=== PATIENT | male | born 1950 | race Hispanic/Latino ===

== ENCOUNTER 2018-08-26 08:52 | Emergency (ER) | payer BC, OTHER ==
[2018-08-26] MEDS ORDERED: TRAMADOL HCL 50 MG TAB ONE (09:40)
[2018-08-26] MEDS ORDERED: KETOROLAC 30 MG/ML INJ ONE (09:40)
--- NOTE | 2018-08-26 10:33 | RAD REPORT ---
EXAM DESCRIPTION: RAD - Lumbar Spine 3 Views - 08/26/2018 10:24 am CLINICAL HISTORY: Back pain FINDINGS: The alignment of the lumbar spine is satisfactory. No fracture or dislocation is seen. Sacralization L5 Mild spondylosis involves the lumbar spine. Osteoporosis
--- NOTE | 2018-08-26 11:29 | EDPHYS ---
Physician Documentation [facility] Name: Joseph Machado Age: 68 yrs Sex: Male : 1950 Arrival Date: 08/26/2018 Time: 08:54 Bed 2 Private MD: Unknown, Unknown ED Physician Phoenix Moreno HPI: 08/26 11:32 This 68 yrs old Male presents to ER via Ambulatory with complaints of Leg snw Pain, HEART. 11:32 The patient presents with pain, that is acute. The complaints affect the right hip, snw lateral aspect of right thigh and lateral aspect of right knee. Context: The problem was sustained at home, resulted from an unknown cause, the patient can fully bear weight, the patient is able to ambulate, Problem is a result from a previous injury: No. Onset: The symptoms/episode began/occurred 3 day(s) ago, and became persistent. Treatment prior to arrival includes: no previous treatment. Severity of symptoms: At their worst the symptoms were moderate. The patient has not experienced similar symptoms in the past. The patient has been recently seen by a physician: with similar presenting complaints, and was sent to the [facility] Emergency Department for further evaluation, 2nd to Bradycardia. Bradycardia asymptomatic. Historical: - Allergies: 09:02 No Known Allergies; tw2 - Home Meds: 09:02 None [Active]; tw2 - PMHx: 09:02 None; tw2 - Immunization history:: Adult Immunizations. - Social history:: Smoking status: . - Ebola Screening: : Patient denies travel to an Ebola-affected area in the 21 days before illness onset. ROS: 09:39 Constitutional: Negative for fever, chills, and weight loss, Eyes: Negative for injury, snw pain, redness, and discharge, ENT: Negative for injury, pain, and discharge, Neck: Negative for injury, pain, and swelling, Cardiovascular: Negative for chest pain, palpitations, and edema, Respiratory: Negative for shortness of breath, cough, wheezing, and pleuritic chest pain, Abdomen/GI: Negative for abdominal pain, nausea, vomiting, diarrhea, and constipation, Back: Negative for injury and pain, : Negative for injury, bleeding, discharge, and swelling, Skin: Negative for injury, rash, and discoloration, Neuro: Negative for headache, weakness, numbness, tingling, and seizure. 09:39 Cardiovascular: Negative for chest pain, edema, palpitations, acute changes. 09:39 MS/extremity: Positive for pain, of the right hip, lateral aspect of right thigh and lateral aspect of right knee. 09:39 Neuro: Negative for dizziness. Exam: 09:39 Constitutional: This is a well developed, well nourished patient who is awake, alert, snw and in no acute distress. Head/Face: Normocephalic, atraumatic. Eyes: Pupils equal round and reactive to light, extra-ocular motions intact. Lids and lashes normal. Conjunctiva and sclera are non-icteric and not injected. Cornea within normal limits. Periorbital areas with no swelling, redness, or edema. ENT: Nares patent. No nasal discharge, no septal abnormalities noted. Tympanic membranes are normal and external auditory canals are clear. Oropharynx with no redness, swelling, or masses, exudates, or evidence of obstruction, uvula midline. Mucous membranes moist. Neck: Trachea midline, no thyromegaly or masses palpated, and no cervical lymphadenopathy. Supple, full range of motion without nuchal rigidity, or vertebral point tenderness. No Meningismus. Chest/axilla: Normal chest wall appearance and motion. Nontender with no deformity. No lesions are appreciated. Respiratory: Lungs have equal breath sounds bilaterally, clear to auscultation and percussion. No rales, rhonchi or wheezes noted. No increased work of breathing, no retractions or nasal flaring. Abdomen/GI: Soft, non-tender, with normal bowel sounds. No distension or tympany. No guarding or rebound. No evidence of tenderness throughout. Skin: Warm, dry with normal turgor. Normal color with no rashes, no lesions, and no evidence of cellulitis. Neuro: Awake and alert, GCS 15, oriented to person, place, time, and situation. Cranial nerves II-XII grossly intact. Motor strength 5/5 in all extremities. Sensory grossly intact. Cerebellar exam normal. Normal gait. Psych: Awake, alert, with orientation to person, place and time. Behavior, mood, and affect are within normal limits. 09:39 MS/ Extremity: Pulses equal, no cyanosis. Neurovascular intact. Full, normal range of motion. 09:39 Cardiovascular: Rate: bradycardic, Rhythm: regular, Heart sounds: normal. 09:40 ECG was reviewed by the Attending Physician. snw Vital Signs: 09:01 BP 148 / 75; Pulse 49; Resp 16; Temp 98(O); Pulse Ox 96% on R/A; Pain 10/10; tw2 09:25 BP 150 / 73 Supine; Pulse 47; em1 09:28 BP 172 / 65 Sitting; Pulse 46; em1 09:42 BP 164 / 77 Standing; Pulse 45; em1 10:01 BP 156 / 81; Pulse 46; Resp 14; Pulse Ox 97% ; sv 10:57 BP 155 / 74; Pulse 45; Resp 16; Pulse Ox 99% ; sv MDM: 09:24 Patient medically screened. snw 11:32 Data reviewed: vital signs, nurses notes. Data interpreted: Pulse oximetry: on room air snw is 99 %. Interpretation: normal. Counseling: I had a detailed discussion with the patient and/or guardian regarding: the historical points, exam findings, and any diagnostic results supporting the discharge/admit diagnosis, the presence of at least one elevated blood pressure reading (>120/80) during this emergency department visit, radiology results, the need for outpatient follow up, to return to the emergency department if symptoms worsen or persist or if there are any questions or concerns that arise at home. Response to treatment: the patient's symptoms have markedly improved after treatment. Special discussion: I have referred the patient to see his PCP for further evaluation of high blood pressure. Based on the history and exam findings, there is no indication for further emergent testing or inpatient evaluation. 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 I discussed with the patient/guardian the need to see the primary care provider for further evaluation of the symptoms. 08/26 09:24 Order name: Lumbar Spine (3 Views) XRAY; Complete Time: 10:39 snw 08/26 09:24 Order name: EKG; Complete Time: 09:26 snw 08/26 09:24 Order name: EKG - Nurse/Tech; Complete Time: 09:24 snw 08/26 09:24 Order name: Orthostatics; Complete Time: 09:35 snw Administered Medications: 09:34 Drug: TORadol - Ketorolac 15 mg Route: IM; Site: right gluteus; hb 10:30 Follow up: Response: No adverse reaction; Pain is decreased hb 09:34 Drug: UltRAM 50 mg Route: PO; hb 10:30 Follow up: Response: No adverse reaction; Pain is decreased hb Disposition: 20:37 Co-signature as Attending Physician, Phoenix Moreno MD Available for consultation at ps1 all times . Disposition: 08/26/18 11:28 Discharged to Home. Impression: Low back pain, Radiculopathy, lumbar region. - Condition is Stable. - Discharge Instructions: Bradycardia, Adult, Lumbosacral Radiculopathy, Hip Pain. - Prescriptions for Mobic 7.5 mg Oral Tablet - take 1 tablet by ORAL route once daily take as needed for pain, with food; 20 tablet. orphenadrine citrate 100 mg Oral Tablet Sustained Release - take 1 tablet by ORAL route 2 times per day As needed; 20 tablet. - Medication Reconciliation Form, Thank You Letter, Antibiotic Education, Prescription Opioid Use form. - Follow up: Emergency Department; When: As needed; Reason: Worsening of condition. Follow up: Private Physician; When: 2 - 3 days; Reason: Recheck today's complaints, Continuance of care, Re-evaluation by your physician. Signatures: Dispatcher [employer] EDMS Leora Davis, NICK-C COMMERCIAL ENERGY RATER-Csnw Kennedi Senior RN RN Zoe Headley RN RN tw2 Phoenix Moreno MD MD ps1 Corrections: (The following items were deleted from the chart) 11:46 11:28 08/26/2018 11:28 Discharged to Home. Impression: Low back pain; Radiculopathy, hb lumbar region. Condition is Stable. Discharge Instructions: Bradycardia, Adult, Lumbosacral Radiculopathy, Hip Pain. Prescriptions for Mobic 7.5 mg Oral Tablet - take 1 tablet by ORAL route once daily take as needed for pain, with food; 20 tablet, orphenadrine citrate 100 mg Oral Tablet Sustained Release - take 1 tablet by ORAL route 2 times per day As needed; 20 tablet. and Forms are Medication Reconciliation Form, Thank You Letter, Antibiotic Education, Prescription Opioid Use. Follow up: Emergency Department; When: As needed; Reason: Worsening of condition. Follow up: Private Physician; When: 2 - 3 days; Reason: Recheck today's complaints, Continuance of care, Re-evaluation by your physician. snw
--- NOTE | 2018-08-26 11:29 | ER ---
Nurse's Notes [facility] Name: Joseph Machado Age: 68 yrs Sex: Male : 1950 Arrival Date: 08/26/2018 Time: 08:54 Bed 2 Private MD: Unknown, Unknown Diagnosis: Low back pain;Radiculopathy, lumbar region Presentation: 08/26 09:00 Presenting complaint: Patient states: my right leg hurts and it hurts all the way down, tw2 he went to the clinic in [place] and they told him his heart rate is low. Transition of care: patient was not received from another setting of care. Onset of symptoms was August 26, 2018. Risk Assessment: Do you want to hurt yourself or someone else? Patient reports no desire to harm self or others. Initial Sepsis Screen: Does the patient meet any 2 criteria? No. Patient's initial sepsis screen is negative. Does the patient have a suspected source of infection? No. Patient's initial sepsis screen is negative. Care prior to arrival: None. 09:00 Method Of Arrival: Ambulatory tw2 09:03 Acuity: YESSICA 2 tw2 Triage Assessment: 09:01 General: Appears in no apparent distress. well groomed, Behavior is calm, cooperative, tw2 appropriate for age. Pain: Complains of pain in right hip. Historical: - Allergies: 09:02 No Known Allergies; tw2 - Home Meds: 09:02 None [Active]; tw2 - PMHx: 09:02 None; tw2 - Immunization history:: Adult Immunizations. - Social history:: Smoking status: . - Ebola Screening: : Patient denies travel to an Ebola-affected area in the 21 days before illness onset. Screenin:11 Abuse screen: Denies threats or abuse. Denies injuries from another. Nutritional hb screening: No deficits noted. Tuberculosis screening: No symptoms or risk factors identified. Fall Risk Total Morris Fall Scale indicates Low Risk Score (25-44 pts). Fall prevention measures have been instituted. Side Rails Up X 2 Frequent Obs/Assesments occuring Family Present and informed to notify staff if they need to leave bedside As available Patient and Family Educated on Fall Prevention Program and strategies. Assessment: 09:11 General: Appears in no apparent distress. Behavior is calm, cooperative. Pain: Pain hb currently is 10 out of 10 on a pain scale. Neuro: Level of Consciousness is awake, alert, obeys commands, Oriented to person, place, time, situation. Cardiovascular: Heart tones S1 S2 present Capillary refill < 3 seconds Patient's skin is warm and dry. Rhythm is sinus bradycardia. Respiratory: Airway is patent Respiratory effort is even, unlabored, Respiratory pattern is regular, symmetrical, Breath sounds are clear bilaterally. GI: No signs and/or symptoms were reported involving the gastrointestinal system. : No signs and/or symptoms were reported regarding the genitourinary system. EENT: No signs and/or symptoms were reported regarding the EENT system. Derm: Skin is intact, is healthy with good turgor, Skin is pink, warm \T\ dry. Musculoskeletal: Reports LEFT LEG PAIN 02/05. 10:00 Reassessment: Patient appears in no apparent distress at this time. Patient and/or hb family updated on plan of care and expected duration. Pain level reassessed. Patient is alert, oriented x 3, equal unlabored respirations, skin warm/dry/pink. 11:00 Reassessment: Patient appears in no apparent distress at this time. Patient and/or hb family updated on plan of care and expected duration. Pain level reassessed. Patient is alert, oriented x 3, equal unlabored respirations, skin warm/dry/pink. Vital Signs: 09:01 BP 148 / 75; Pulse 49; Resp 16; Temp 98(O); Pulse Ox 96% on R/A; Pain 10; tw2 09:25 BP 150 / 73 Supine; Pulse 47; em1 09:28 BP 172 / 65 Sitting; Pulse 46; em1 09:42 BP 164 / 77 Standing; Pulse 45; em1 10:01 BP 156 / 81; Pulse 46; Resp 14; Pulse Ox 97% ; sv 10:57 BP 155 / 74; Pulse 45; Resp 16; Pulse Ox 99% ; sv ED Course: 08:54 Patient arrived in ED. ag5 08:56 Unknown, Unknown is Private Physician. ag5 09:01 Triage completed. tw2 09:01 Arm band placed on. tw2 09:05 Leora Davis FNP-C is [facility]. snw 09:05 Phoenix Moreno MD is Attending Physician. snw 09:11 Kennedi Senior, RN is Primary Nurse. hb 09:11 Patient has correct armband on for positive identification. Placed in gown. Bed in low hb position. Call light in reach. Side rails up X2. 09:18 EKG done, by engineering lab technician. reviewed by Leora HERNANDEZ. at1 10:14 X-ray completed. Patient tolerated procedure well. jb2 10:15 Lumbar Spine (3 Views) XRAY In Process Unspecified. EDMS 11:00 No provider procedures requiring assistance completed. Patient did not have IV access hb during this emergency room visit. Administered Medications: 09:34 Drug: TORadol - Ketorolac 15 mg Route: IM; Site: right gluteus; hb 10:30 Follow up: Response: No adverse reaction; Pain is decreased hb 09:34 Drug: UltRAM 50 mg Route: PO; hb 10:30 Follow up: Response: No adverse reaction; Pain is decreased hb Outcome: 11:00 Discharged to home ambulatory, with family. hb 11:00 Condition: stable 11:00 Discharge instructions given to patient, family, Instructed on discharge instructions, follow up and referral plans. medication usage, Demonstrated understanding of instructions, follow-up care, medications, Prescriptions given X 2. 11:28 Discharge ordered by MD. snw 11:46 Patient left the ED. hb Signatures: Dispatcher [employer] Jen Espinoza, Leora Roca RN, ESTHERC SENIOR MICROSTRATEGY DEVELOPER-Csnw Harmeet Tavarez jb2 Ryan Dan em1 Dawna Sorto, sourcing associate EKG Tat1 Kennedi Senior RN RN Zoe Headley RN RN 2 Victorino Stafford ag5 Corrections: (The following items were deleted from the chart) 09:03 09:00 Acuity: YESSICA 3 tw2 tw2
--- NOTE | 2018-08-26 21:41 | EKG ---
Test Date: 2018-08-26 Test Time: 09:09:08 [employer] Sales Consultant: STEPHANIE MEASUREMENT RESULTS: Intervals: Rate: 46 PA: 158 QRSD: 90 QT: 440 QTc: 385 [place]: P: 43 PA: 158 QRS: 39 T: 79 INTERPRETIVE STATEMENTS: Sinus bradycardia Otherwise normal ECG No previous ECG available for comparison Electronically Signed On 08-26-18 21:38:32 CDT by Yovani Ortega
== END 2018-08-26 11:46 | disposition home or self-care (01) ==
LOC: ER 08:52
DX: M54.16 Radiculopathy, lumbar region (principal)
CPT/HCPCS: 72100; 93005

== ENCOUNTER 2018-09-02 07:47 | Emergency (ER) | payer BC, OTHER ==
[2018-09-02] MEDS ORDERED: MORPHINE 2 MG/ML SYR ONE ×2 (08:33→10:11)
[2018-09-02] MEDS ORDERED: DEXAMETHASONE 10 MG/ML VIAL ONE (08:33)
[2018-09-02] MEDS ORDERED: ONDANSETRON 4 MG/2 ML VIAL ONE (08:34)
[2018-09-02] MEDS ORDERED: NA CHLORIDE 0.9% 1,000 ML ONE (08:34)
[2018-09-02] MEDS ORDERED: KETOROLAC 30 MG/ML INJ ONE (08:34)
[2018-09-02 08:45] LABS: MPV 8.7 fL (7.6-11.3); RBC Red Blood Cell Count 5.66 M/uL (4.33-5.43)
[2018-09-02] MEDS ORDERED: DIAZEPAM 5 MG TABLET ONE (08:56)
[2018-09-02 08:57] LABS: Potassium 4.8 mmol/L (3.5-5.1)
--- NOTE | 2018-09-02 10:23 | RAD REPORT ---
EXAM DESCRIPTION: MRI - Lumbar Spine Wo Con - 09/02/2018 9:28 am CLINICAL HISTORY: Back pain, right lower extremity radiculopathy COMPARISON: Lumbar plain films August 26 TECHNIQUE: Sagittal T1-weighted, T2-weighted and T2-STIR weighted sequences were obtained. Axial T1 -weighted and heavily T2-weighted sequenceswere obtained through the lumbar disc levels. FINDINGS: Lumbar bodies are normal in height and alignment. No suspicious marrow signal. No paraspi nal masses. Mild fatty marrow degenerative changes are present abutting the endplates at the L5-S1 di sc level. Conus is normal with no clumping or thickening of the cauda equina. T12-L1 level: No significant findings. L1-2 level: Disc is desiccated with slight loss in disc height. Circumferential bulging of disc mater ial is present. Small annular fissure is present near the origin of the right exit foramen. No hernia tion. Midline canal diameter is 10 mm. No significant foraminal stenosis. L2-3 level: Disc is desiccated without loss in disc height. Circumferential bulging of disc material is present. No significant foraminal encroachment. Facet degenerative changes are present. Midline ca nal diameter is 10 mm. L3-4 level: Disc is desiccated without loss in disc height. Bulging of disc material is seen across t he central canal and into each exit foramen. Mild foraminal stenosis is present. Perineural fat still surrounds each exiting nerve root. Facet degenerative changes are present. Midline canal diameter is 9 mm. L4-5 level: Disc desiccation without loss in disc height. Circumferential bulging of disc material is present. Mild right foraminal stenosis and [id number] left foraminal stenosis present. Perineu ral fat is still surrounding each exiting nerve root. Facet degenerative changes are present. Midline canal is 10 mm. L5-S1 level: Disc is desiccated with loss in height. Prominent bulging of disc material is seen in th e central canal with more moderate disc bulge in each exit foramen. Central canal disc bulge flattens the thecal sac anteriorly. Facet degenerative changes are present. There is significant left foramin al stenosis with little perineural fat remaining. Right foraminal stenosis is moderate. Perineural fa t is still present. No central spinal stenosis. Midline canal diameter is 14 mm. IMPRESSION: Degenerative disc disease is present at every lumbar level. No focal herniation is seen. 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 Multilevel foraminal stenosis changes are present. Findings are most severe on the left at L5-S1. Pat ient symptoms indicate right radicular pain pattern. The foraminal stenosis is less prominent on the right compared to the left. No compression fracture or acute vertebral body finding.
--- NOTE | 2018-09-02 10:31 | ER ---
Nurse's Notes [facility] Name: Joseph Machado Age: 68 yrs Sex: Male : 1950 Arrival Date: 09/02/2018 Time: 07:48 Bed 14 Private MD: Diagnosis: Low back pain;Sciatica, right side;Spinal stenosis, lumbar region;Radiculopathy, lumbosacral region Presentation: 09/02 07:48 Presenting complaint: Patient states: right lower back pain radiating to right leg. Pt aa5 states "I was seen here August 26 and I finished all the medicine they gave me but it's not better". 07:48 Transition of care: patient was not received from another setting of care. Onset of aa5 symptoms was July 2018. Risk Assessment: Do you want to hurt yourself or someone else? Patient reports no desire to harm self or others. Initial Sepsis Screen: Does the patient meet any 2 criteria? No. Patient's initial sepsis screen is negative. Does the patient have a suspected source of infection? No. Patient's initial sepsis screen is negative. Care prior to arrival: None. 07:48 Method Of Arrival: Ambulatory aa5 07:48 Acuity: YESSICA 4 aa5 Triage Assessment: 07:48 General: Appears in no apparent distress. uncomfortable, Behavior is calm, cooperative, hj appropriate for age. Pain: Complains of pain in back. Musculoskeletal: Circulation, motion, and sensation intact. Capillary refill < 3 seconds. Historical: - Allergies: 07:52 No Known Allergies; aa5 - Home Meds: 07:53 None [Active]; aa5 - PMHx: 07:53 None; aa5 - PSHx: 07:53 None; aa5 - Immunization history:: Adult Immunizations unknown. - Social history:: Smoking status: Patient/guardian denies using tobacco. - Ebola Screening: : No symptoms or risks identified at this time. - Family history:: not pertinent. Screenin:48 Abuse screen: Denies threats or abuse. Denies injuries from another. Nutritional hj screening: No deficits noted. Tuberculosis screening: No symptoms or risk factors identified. Fall Risk None identified. Assessment: 07:48 General: Appears in no apparent distress. uncomfortable, Behavior is calm, cooperative, hj appropriate for age. Pain: Complains of pain in back. Neuro: Level of Consciousness is awake, alert, obeys commands, Oriented to person, place, time, situation, Appropriate for age. Cardiovascular: Capillary refill < 3 seconds Patient's skin is warm and dry. Respiratory: Airway is patent Respiratory effort is even, unlabored, Respiratory pattern is regular, symmetrical. GI: No signs and/or symptoms were reported involving the gastrointestinal system. : No signs and/or symptoms were reported regarding the genitourinary system. EENT: No signs and/or symptoms were reported regarding the EENT system. Derm: No signs and/or symptoms reported regarding the dermatologic system. 07:48 Musculoskeletal: Reports pain in back. hj 09:03 Reassessment: Patient and/or family updated on plan of care and expected duration. Pain hj level reassessed. Patient is alert, oriented x 3, equal unlabored respirations, skin warm/dry/pink. wheeled to MRI;. Vital Signs: 07:50 Temp 98.1(TE); Pulse Ox 100% on R/A; hj 07:53 BP 147 / 84; Pulse 58; Resp 16; Weight 88.45 kg (R); Pain 10/10; aa5 08:50 BP 164 / 69; Pulse 52; Resp 18; Pulse Ox 96% on R/A; Pain 8/10; hj 10:01 BP 130 / 67; Pulse 50; Resp 18; Pulse Ox 98% on R/A; Pain 5/10; hj ED Course: 07:48 Patient arrived in ED. as 07:48 Arm band placed on Patient placed in an exam room, on a stretcher. aa5 07:48 Patient has correct armband on for positive identification. Placed in gown. Bed in low hj position. Call light in reach. Side rails up X 1. 07:50 Rj Silva, AMY is Primary Nurse. hj 07:51 Triage completed. aa5 07:53 [place] P[place] MD is Attending Physician. karlee 08:30 Initial lab(s) drawn, by me, sent to lab. Inserted saline lock: 22 gauge in right hj antecubital area, using aseptic technique. Blood collected. 09:13 Patient moved to MRI via wheelchair. em2 09:28 MRI Lumbar Spine wo Con In Process Unspecified. EDMS 10:29 Juanjo Parker MD is Referral Physician. kalree 10:53 No provider procedures requiring assistance completed. IV discontinued, intact, hj bleeding controlled, No redness/swelling at site. Pressure dressing applied. Administered Medications: 08:30 Drug: NS 0.9% 1000 ml Route: IV; Rate: 1 bolus; Site: right antecubital; hj 10:06 Follow up: IV Status: Completed infusion; IV Intake: 1000ml hj 08:30 Drug: Decadron - Dexamethasone 10 mg Route: IVP; Site: right antecubital; hj 08:40 Follow up: Response: No adverse reaction hj 08:30 Drug: TORadol 30 mg Route: IVP; Site: right antecubital; hj 08:40 Follow up: Response: No adverse reaction; Pain is decreased hj 08:30 Drug: morphine 2 mg Route: IVP; Site: right antecubital; hj 08:40 Follow up: Response: No adverse reaction; Pain is decreased hj 08:30 Drug: Zofran 4 mg Route: IVP; Site: right antecubital; hj 08:41 Follow up: Response: No adverse reaction hj 08:30 Drug: Valium 5 mg Route: PO; hj 08:44 Follow up: Response: No adverse reaction; Anxiety decreased hj 09:50 Drug: morphine 2 mg Route: IVP; Site: right antecubital; hj 10:00 Follow up: Response: No adverse reaction; Pain is decreased hj Intake: 10:06 IV: 1000ml; Total: 1000ml. hj Outcome: 10:30 Discharge ordered by . [facility] 10:53 Discharged to home ambulatory, with family. 10:53 Condition: stable 10:53 Discharge instructions given to patient, family, Instructed on discharge instructions, follow up and referral plans. medication usage, Demonstrated understanding of instructions, follow-up care, medications, Prescriptions given X 4. 10:54 Patient left the ED. hj Signatures: Dispatcher [employer] EDMS [place] P[place] MD MD cha Martinez, Amelia as Calderon, Audri RN RN [email or web address] Brian Hernandez 2 Rj Silva RN RN hj Corrections: (The following items were deleted from the chart) 07:53 07:53 BP 147 / 84; Pulse 58bpm; aa5 aa5 10:01 08:50 BP 164 / 69; Pulse 52bpm; Resp 18bpm; Pulse Ox 96% RA; hj hj
--- NOTE | 2018-09-02 10:31 | EDPHYS ---
Physician Documentation [facility] Name: Joseph Machado Age: 68 yrs Sex: Male : 1950 Arrival Date: 09/02/2018 Time: 07:48 Bed 14 Private MD: ED Physician [place] HPI: 09/02 08:16 This 68 yrs old Male presents to ER via Ambulatory with complaints of Back karlee Pain. 08:16 The patient presents with pain that is chronic, with no known mechanism of injury, and karlee decreased range of motion. The symptoms are located in the low back, lumbar area and right low back. Onset: The symptoms/episode began/occurred 3 day(s) ago. The pain radiates to the right leg. Associated signs and symptoms: The patient has no apparent associated signs or symptoms. Severity of symptoms: At their worst the symptoms were mild, in the emergency department the symptoms are unchanged. The patient has not experienced similar symptoms in the past. Historical: - Allergies: 07:52 No Known Allergies; aa5 - Home Meds: 07:53 None [Active]; aa5 - PMHx: 07:53 None; aa5 - PSHx: 07:53 None; aa5 - Immunization history:: Adult Immunizations unknown. - Social history:: Smoking status: Patient/guardian denies using tobacco. - Ebola Screening: : No symptoms or risks identified at this time. - Family history:: not pertinent. ROS: 08:16 Constitutional: Negative for fever, chills, and weight loss, Eyes: Negative for injury, karlee pain, redness, and discharge, ENT: Negative for injury, pain, and discharge, Neck: Negative for injury, pain, and swelling, Cardiovascular: Negative for chest pain, palpitations, and edema, Respiratory: Negative for shortness of breath, cough, wheezing, and pleuritic chest pain, Abdomen/GI: Negative for abdominal pain, nausea, vomiting, diarrhea, and constipation, : Negative for injury, bleeding, discharge, and swelling, MS/Extremity: Negative for injury and deformity, Skin: Negative for injury, rash, and discoloration, Neuro: Negative for headache, weakness, numbness, tingling, and seizure, Psych: Negative for depression, anxiety, suicide ideation, homicidal ideation, and hallucinations, Allergy/Immunology: Negative for hives, rash, and allergies, Endocrine: Negative for neck swelling, polydipsia, polyuria, polyphagia, and marked weight changes, Hematologic/Lymphatic: Negative for swollen nodes, abnormal bleeding, and unusual bruising. 08:16 Back: Positive for decreased range of motion, pain at rest, pain with movement, radiated pain. Exam: 08:16 Constitutional: This is a well developed, well nourished patient who is awake, alert, karlee and in no acute distress. Head/Face: Normocephalic, atraumatic. Eyes: Pupils equal round and reactive to light, extra-ocular motions intact. Lids and lashes normal. Conjunctiva and sclera are non-icteric and not injected. Cornea within normal limits. Periorbital areas with no swelling, redness, or edema. ENT: Nares patent. No nasal discharge, no septal abnormalities noted. Tympanic membranes are normal and external auditory canals are clear. Oropharynx with no redness, swelling, or masses, exudates, or evidence of obstruction, uvula midline. Mucous membranes moist. Neck: Trachea midline, no thyromegaly or masses palpated, and no cervical lymphadenopathy. Supple, full range of motion without nuchal rigidity, or vertebral point tenderness. No Meningismus. Chest/axilla: Normal chest wall appearance and motion. Nontender with no deformity. No lesions are appreciated. Cardiovascular: Regular rate and rhythm with a normal S1 and S2. No gallops, murmurs, or rubs. Normal PMI, no JVD. No pulse deficits. Respiratory: Lungs have equal breath sounds bilaterally, clear to auscultation and percussion. No rales, rhonchi or wheezes noted. No increased work of breathing, no retractions or nasal flaring. Abdomen/GI: Soft, non-tender, with normal bowel sounds. No distension or tympany. No guarding or rebound. No evidence of tenderness throughout. Male : Normal genitalia with no discharge or lesions. Skin: Warm, dry with normal turgor. Normal color with no rashes, no lesions, and no evidence of cellulitis. MS/ Extremity: Pulses equal, no cyanosis. Neurovascular intact. Full, normal range of motion. Neuro: Awake and alert, GCS 15, oriented to person, place, time, and situation. Cranial nerves II-XII grossly intact. Motor strength 5/5 in all extremities. Sensory grossly intact. Cerebellar exam normal. Normal gait. Psych: Awake, alert, with orientation to person, place and time. Behavior, mood, and affect are within normal limits. 08:16 Back: pain, that is mild, that is moderate, ROM is painful, with flexion, with extension, normal spinal alignment noted, CVA tenderness, is absent, muscle spasm, is appreciated in the lumbar area and right low back. Vital Signs: 07:50 Temp 98.1(TE); Pulse Ox 100% on R/A; hj 07:53 BP 147 / 84; Pulse 58; Resp 16; Weight 88.45 kg (R); Pain 10/10; aa5 08:50 BP 164 / 69; Pulse 52; Resp 18; Pulse Ox 96% on R/A; Pain 8/10; hj 10:01 BP 130 / 67; Pulse 50; Resp 18; Pulse Ox 98% on R/A; Pain 5/10; hj MDM: 07:53 Patient medically screened. [facility] 08:18 Data reviewed: vital signs, nurses notes, lab test result(s), radiologic studies, MRI. [facility] 09/02 08:16 Order name: CBC w/o diff; Complete Time: 09:11 [facility] 09/02 08:16 Order name: Chem 7; Complete Time: 09:11 [facility] 09/02 08:12 Order name: MRI Lumbar Spine wo Con; Complete Time: 10:29 09/02 08:40 Order name: Urine Dipstick--Ancillary (enter results) 09/02 08:16 Order name: Urine Dipstick-Ancillary (obtain specimen); Complete Time: 08:38 [facility] Administered Medications: 08:30 Drug: NS 0.9% 1000 ml Route: IV; Rate: 1 bolus; Site: right antecubital; hj 10:06 Follow up: IV Status: Completed infusion; IV Intake: 1000ml hj 08:30 Drug: Decadron - Dexamethasone 10 mg Route: IVP; Site: right antecubital; hj 08:40 Follow up: Response: No adverse reaction hj 08:30 Drug: TORadol 30 mg Route: IVP; Site: right antecubital; hj 08:40 Follow up: Response: No adverse reaction; Pain is decreased hj 08:30 Drug: morphine 2 mg Route: IVP; Site: right antecubital; hj 08:40 Follow up: Response: No adverse reaction; Pain is decreased hj 08:30 Drug: Zofran 4 mg Route: IVP; Site: right antecubital; hj 08:41 Follow up: Response: No adverse reaction hj 08:30 Drug: Valium 5 mg Route: PO; hj 08:44 Follow up: Response: No adverse reaction; Anxiety decreased hj 09:50 Drug: morphine 2 mg Route: IVP; Site: right antecubital; hj 10:00 Follow up: Response: No adverse reaction; Pain is decreased hj Disposition: 09/02/18 10:30 Discharged to Home. Impression: Low back pain, Sciatica, right side, Spinal stenosis, lumbar region, Radiculopathy, lumbosacral region. - Condition is Stable. - Discharge Instructions: Back Pain, Adult, Musculoskeletal Pain, Sciatica, Back Injury Prevention, [id number], Back Pain, Adult, Kecm-ao-Pswr, Sciatica, Lutn-xx-Oxab. - Prescriptions for Tylenol- Codeine #3 300-30 mg Oral Tablet - take 2 tablet by ORAL route every 6 hours As needed; 30 tablet. Medrol (Minor) 4 mg Oral Tablets, Dose Pack - take 1 tablet by ORAL route as directed - follow package instructions; 1 packet. Motrin IB 200 mg Oral Tablet - take 2 tablet by ORAL route every 6 hours As needed as needed with food; 30 tablet. Cyclobenzaprine 5 mg Oral Tablet - take 1 tablet by ORAL route 3 times per day As needed; 15 tablet. - Medication Reconciliation Form, Thank You Letter, Antibiotic Education, Prescription Opioid Use, Work release form form. - Follow up: Private Physician; When: 2 - 3 days; Reason: Recheck today's complaints, Continuance of care, Re-evaluation by your physician. Follow up: Juanjo Parker; When: 2 - 3 days; Reason: Recheck today's complaints, Re-evaluation by your physician. - Problem is new. - Symptoms have improved. Signatures: Dispatcher [employer] [place] Srivastava MD MD cha Calderon, Audri, RN RN aa5 Rj Silva RN RN hj Corrections: (The following items were deleted from the chart) 10:54 10:30 09/02/2018 10:30 Discharged to Home. Impression: Low back pain; Sciatica, right hj side; Spinal stenosis, lumbar region; Radiculopathy, lumbosacral region. Condition is Stable. Discharge Instructions: Back Pain, Adult, Musculoskeletal Pain, Sciatica, Back Injury Prevention, [id number]-[id number], Back Pain, Adult, Wpap-da-Zjfz, Sciatica, Rvmg-eu-Unvu. Prescriptions for Tylenol-Codeine #3 300-30 mg Oral Tablet - take 2 tablet by ORAL route every 6 hours As needed; 30 tablet, Medrol (Minor) 4 mg Oral Tablets, Dose Pack - take 1 tablet by ORAL route as directed - follow package instructions; 1 packet, Motrin IB 200 mg Oral Tablet - take 2 tablet by ORAL route every 6 hours As needed as needed with food; 30 tablet, Cyclobenzaprine 5 mg Oral Tablet - take 1 tablet by ORAL route 3 times per day As needed; 15 tablet. and Forms are Medication Reconciliation Form, Thank You Letter, Antibiotic Education, Prescription Opioid Use. Follow up: Private Physician; When: 2 - 3 days; Reason: Recheck today's complaints, Continuance of care, Re-evaluation by your physician. Follow up: Juanjo Parker; When: 2 - 3 days; Reason: Recheck today's complaints, Re-evaluation by your physician. Problem is new. Symptoms have improved. karlee
[2018-09-02 14:37] LABS: Urine Blood NEGATIVE (NEG); Urine Glucose NEGATIVE (NEG); Urine Protein NEGATIVE (NEG)
== END 2018-09-02 10:54 | disposition home or self-care (01) ==
LOC: ER 07:47
DX: M54.31 Sciatica, right side (principal); M48.061 Spinal stenosis, lumbar region without neurogenic claudication; M54.17 Radiculopathy, lumbosacral region
CPT/HCPCS: 36415; 72148; 80048; 81003; 85027; 96361; 96374; 96375; 99284; J1100; J2270; J2405; J7030

== ENCOUNTER 2019-08-30 01:54 | Inpatient (IN) | payer BC ==
[2019-08-30 02:44] LABS: Absolute Lymphocytes (CBC) 2.1 K/uL (0.7-4.9); Basophils % 0.7 % (0-1.3); Hematocrit 46.1 % (39.6-49.0); Lymphocytes % 26.5 % (15.3-44.8); MPV 8.9 fL (7.6-11.3)
[2019-08-30 02:49] LABS: Protime INR 0.99
[2019-08-30 03:07] LABS: Albumin 3.3 g/dL (3.4-5.0); Bilirubin Direct 0.2 mg/dL (0-0.2); Bilirubin Total 0.5 mg/dL (0.2-1.0); Magnesium 1.7 mg/dL (1.8-2.4); Potassium 4.2 mmol/L (3.5-5.1); Protein, Total 7.8 g/dL (6.4-8.2); Troponin (Emerg Dept Use Only) 0.08 ng/mL (0.0-0.045)
[2019-08-30] MEDS ORDERED: NITROGLYCERIN 1 GM PKT TD ONE (04:03)
[2019-08-30] MEDS ORDERED: CLOPIDOGREL 75 MG TABLET ONE (04:03)
[2019-08-30] MEDS ORDERED: ASPIRIN 81 MG CHEWABLE TABLET ONE (04:03)
--- NOTE | 2019-08-30 04:03 | ER ---
Nurse's Notes [facility] Name: Joseph Machado Age: 69 yrs Sex: Male : 1950 Arrival Date: 08/30/2019 Time: 01:56 Bed 6 Private MD: Diagnosis: Other chest pain;Angina pectoris, unspecified;Essential (primary) hypertension;Obesity, unspecified;Cardiomegaly;Hypomagnesemia Presentation: 08/29 02:13 Chief complaint: Patient states: Chest pain since yesterday, feels like pressure; lp1 Denies any other symptoms. Coronavirus screen: Proceed with normal triage. Ebola Screen: No symptoms or risks identified at this time. 02:13 Method Of Arrival: Wheelchair lp1 02:13 Initial Sepsis Screen: Does the patient meet any 2 criteria? No. Patient's initial lp1 sepsis screen is negative. Does the patient have a suspected source of infection? No. Patient's initial sepsis screen is negative. Risk Assessment: Do you want to hurt yourself or someone else? Patient reports no desire to harm self or others. Onset of symptoms was August 29, 2019. 02:13 Acuity: YESSICA 3 lp1 Historical: - Allergies: 02:24 No Known Allergies; lp1 - Home Meds: 02:24 None [Active]; lp1 - PMHx: 02:24 None; lp1 - PSHx: 02:24 None; lp1 - Immunization history:: Adult Immunizations up to date. - Social history:: Smoking status: Patient denies any tobacco usage or history of. - Family history:: not pertinent. Screenin:05 Abuse screen: Denies threats or abuse. Denies injuries from another. Nutritional mg2 screening: No deficits noted. Tuberculosis screening: No symptoms or risk factors identified. Fall Risk IV access (20 points). Assessment: 02:50 General: Appears in no apparent distress. comfortable, Behavior is calm, cooperative. mg2 Pain: Complains of pain in chest Pain does not radiate. Quality of pain is described as aching, Pain began gradually, Is intermittent. Neuro: Level of Consciousness is awake, alert, obeys commands, Oriented to person, place, time, situation. Cardiovascular: Capillary refill < 3 seconds Patient's skin is warm and dry. Respiratory: Airway is patent Respiratory effort is even, unlabored, Respiratory pattern is regular, symmetrical. GI: No signs and/or symptoms were reported involving the gastrointestinal system. : No signs and/or symptoms were reported regarding the genitourinary system. EENT: No signs and/or symptoms were reported regarding the EENT system. Derm: Skin is intact, is healthy with good turgor, Skin is pink, warm \T\ dry. normal. Musculoskeletal: Circulation, motion, and sensation intact. Capillary refill < 3 seconds. 03:50 Reassessment: Patient appears in no apparent distress at this time. Patient and/or mg2 family updated on plan of care and expected duration. Pain level reassessed. Patient is alert, oriented x 3, equal unlabored respirations, skin warm/dry/pink. 04:55 Reassessment: Patient appears in no apparent distress at this time. Patient and/or mg2 family updated on plan of care and expected duration. Pain level reassessed. Patient is alert, oriented x 3, equal unlabored respirations, skin warm/dry/pink. 06:30 Reassessment: patient and family informed about the plan for admission.,- [phone] mg2 daughter. 07:00 Reassessment: RECD REPORT FROM GILBERTO REYES. 69YO HM P/W CP, NO MEDICAL HX. ADMIT IN bp PROCESS FOR CHEST PAIN, +TROPONIN NOTED. Vital Signs: 02:13 BP 201 / 90; Pulse 55; Resp 16; Temp 97.7(O); Pulse Ox 96% on R/A; Weight 81.65 kg (R); lp1 Height 5 ft. 1 in. (154.94 cm); Pain 9/10; 02:20 BP 185 / 96; Pulse 54; Resp 17; Pulse Ox 97% on R/A; lp1 04:17 BP 188 / 71; Pulse 65; Resp 18; Pulse Ox 98% on R/A; mg2 05:43 BP 139 / 83; Pulse 55; Resp 18; Pulse Ox 98% on R/A; mg2 07:07 BP 146 / 72; Pulse 53; Resp 18; Temp 98; Pulse Ox 98% on R/A; mg2 08:05 BP 119 / 70; Pulse 52; Resp 15; Pulse Ox 97% on R/A; rb1 02:13 Body Mass Index 34.01 (81.65 kg, 154.94 cm) lp1 ED Course: :56 Patient arrived in ED. ds1 02:05 [place] MD is Attending Physician. karlee 02:09 He Pyle RN is Primary Nurse. mg2 02:24 Triage completed. lp1 02:24 Arm band placed on. lp1 02:25 Patient has correct armband on for positive identification. Placed in gown. Cardiac lp1 monitor on. Pulse ox on. NIBP on. 02:25 Patient maintains SpO2 saturation greater than 95% on room air. lp1 02:38 XRAY Chest (1 view) In Process Unspecified. EDMS 02:38 No provider procedures requiring assistance completed. Inserted saline lock: 20 gauge mg2 in right antecubital area, using aseptic technique. Blood collected. 03:56 Dylan Woods is Hospitalizing Provider. karlee 05:44 Patient admitted, IV remains in place. mg2 07:07 Report given to BB and AMY Ferrell. mg2 Administered Medications: 04:14 Drug: Zofran (Ondansetron) 4 mg Route: IVP; Site: right antecubital; mg2 05:43 Follow up: Response: No adverse reaction mg2 04:14 Drug: PlaVIX 300 mg Route: PO; mg2 05:43 Follow up: Response: No adverse reaction mg2 04:16 Drug: Aspirin Chewable Tablet 324 mg Route: PO; mg2 05:43 Follow up: Response: No adverse reaction mg2 04:16 Drug: Tylenol 650 mg Route: PO; mg2 05:43 Follow up: Response: No adverse reaction mg2 04:16 Drug: morphine 2 mg Route: IVP; Site: right antecubital; mg2 04:17 Drug: Magnesium Sulfate 1 grams Route: IVPB; Infused Over: 1 hrs; Site: right mg2 antecubital; 05:43 Follow up: Response: No adverse reaction; IV Status: Completed infusion mg2 04:17 Drug: Lovenox 80 mg Route: Sub-Q; Site: right lower abdomen; mg2 05:43 Follow up: Response: No adverse reaction mg2 04:36 Drug: Nitro-Bid Ointment 2 % 1 inches Route: Transdermal; Site: anterior chest wall; mg2 05:43 Follow up: Response: No adverse reaction mg2 05:42 Drug: morphine 2 mg Route: IVP; Site: right antecubital; mg2 07:07 Follow up: Response: No adverse reaction mg2 Outcome: 03:58 Decision to Hospitalize by Provider. karlee 07:51 Admitted to Tele accompanied by tech, via wheelchair, room 209, with chart, Report bp called to CHRISS REYES 07:51 Condition: stable 07:51 Instructed on the need for admit. 08:39 Patient left the ED. bp Signatures: Dispatcher [employer] [facility] MD MD cha Sanford, Demi ds1 Yuliana Landrum, AMY RN lp1 Silvia Mason, AMY RN rb1 Ghassan Lisa RN RN bp He Pyle RN RN mg2 Corrections: (The following items were deleted from the chart) 04:20 04:17 BP 188 / 71; Pulse 58bpm; Resp 18bpm; Pulse Ox 98% RA; mg2 mg2
--- NOTE | 2019-08-30 04:03 | EDPHYS ---
Physician Documentation [facility] – [place], [place] Name: Joseph Machado Age: 69 yrs Sex: Male : 1950 Arrival Date: 08/30/2019 Time: 01:56 Bed 6 Private MD: ED Physician [place] HPI: 08/29 03:47 This 69 yrs old Male presents to ER via Wheelchair with complaints of Chest karlee Pain. 03:47 The patient or guardian reports chest pain that is located primarily in the substernal karlee area. Onset: 1 day(s) ago. The pain does not radiate. Associated signs and symptoms: Pertinent positives: diaphoresis, lightheadedness, shortness of breath. The chest pain is described as a heaviness, a pressure. Duration: The patient or guardian reports multiple episodes, with no pattern. Severity of pain: At its worst the pain was moderate in the emergency department the pain has resolved. The patient has not experienced similar symptoms in the past. Historical: - Allergies: 02:24 No Known Allergies; lp1 - Home Meds: 02:24 None [Active]; lp1 - PMHx: 02:24 None; lp1 - PSHx: 02:24 None; lp1 - Immunization history:: Adult Immunizations up to date. - Social history:: Smoking status: Patient denies any tobacco usage or history of. - Family history:: not pertinent. ROS: 03:47 Constitutional: Negative for fever, chills, and weight loss, Eyes: Negative for injury, karlee pain, redness, and discharge, ENT: Negative for injury, pain, and discharge, Neck: Negative for injury, pain, and swelling, Respiratory: Negative for shortness of breath, cough, wheezing, and pleuritic chest pain, Abdomen/GI: Negative for abdominal pain, nausea, vomiting, diarrhea, and constipation, Back: Negative for injury and pain, : Negative for injury, bleeding, discharge, and swelling, MS/Extremity: Negative for injury and deformity, Skin: Negative for injury, rash, and discoloration, Neuro: Negative for headache, weakness, numbness, tingling, and seizure. 03:47 Cardiovascular: Positive for chest pain, of the chest. Exam: 03:47 Constitutional: This is a well developed, well nourished patient who is awake, alert, karlee and in no acute distress. Head/Face: Normocephalic, atraumatic. Eyes: Pupils equal round and reactive to light, extra-ocular motions intact. Lids and lashes normal. Conjunctiva and sclera are non-icteric and not injected. Cornea within normal limits. Periorbital areas with no swelling, redness, or edema. ENT: Nares patent. No nasal discharge, no septal abnormalities noted. Tympanic membranes are normal and external auditory canals are clear. Oropharynx with no redness, swelling, or masses, exudates, or evidence of obstruction, uvula midline. Mucous membranes moist. Neck: Trachea midline, no thyromegaly or masses palpated, and no cervical lymphadenopathy. Supple, full range of motion without nuchal rigidity, or vertebral point tenderness. No Meningismus. Chest/axilla: Normal chest wall appearance and motion. Nontender with no deformity. No lesions are appreciated. Cardiovascular: Regular rate and rhythm with a normal S1 and S2. No gallops, murmurs, or rubs. Normal PMI, no JVD. No pulse deficits. Respiratory: Lungs have equal breath sounds bilaterally, clear to auscultation and percussion. No rales, rhonchi or wheezes noted. No increased work of breathing, no retractions or nasal flaring. Abdomen/GI: Soft, non-tender, with normal bowel sounds. No distension or tympany. No guarding or rebound. No evidence of tenderness throughout. Back: No spinal tenderness. No costovertebral tenderness. Full range of motion. Male : Normal genitalia with no discharge or lesions. Skin: Warm, dry with normal turgor. Normal color with no rashes, no lesions, and no evidence of cellulitis. MS/ Extremity: Pulses equal, no cyanosis. Neurovascular intact. Full, normal range of motion. Neuro: Awake and alert, GCS 15, oriented to person, place, time, and situation. Cranial nerves II-XII grossly intact. Motor strength 5/5 in all extremities. Sensory grossly intact. Cerebellar exam normal. Normal gait. Psych: Awake, alert, with orientation to person, place and time. Behavior, mood, and affect are within normal limits. 03:49 Musculoskeletal/extremity: DVT Exam: No signs of deep vein thrombosis. no pain, no karlee swelling, no tenderness, negative Homans' sign noted on exam, no appreciated bluish discoloration, no erythema, no increased warmth. 03:54 ECG was reviewed by the Attending Physician. [facility] Vital Signs: 02:13 BP 201 / 90; Pulse 55; Resp 16; Temp 97.7(O); Pulse Ox 96% on R/A; Weight 81.65 kg (R); lp1 Height 5 ft. 1 in. (154.94 cm); Pain 9/10; 02:20 BP 185 / 96; Pulse 54; Resp 17; Pulse Ox 97% on R/A; lp1 04:17 BP 188 / 71; Pulse 65; Resp 18; Pulse Ox 98% on R/A; mg2 05:43 BP 139 / 83; Pulse 55; Resp 18; Pulse Ox 98% on R/A; mg2 07:07 BP 146 / 72; Pulse 53; Resp 18; Temp 98; Pulse Ox 98% on R/A; mg2 08:05 BP 119 / 70; Pulse 52; Resp 15; Pulse Ox 97% on R/A; rb1 02:13 Body Mass Index 34.01 (81.65 kg, 154.94 cm) lp1 MDM: 02:05 Patient medically screened. [facility] 03:47 Data reviewed: vital signs, nurses notes, lab test result(s), EKG, radiologic studies, [facility] plain films. 03:50 Differential diagnosis: abnormal EKG, coronary artery disease Cholelithiasis karlee gastroesophageal reflux disease (GERD), hiatal hernia, pneumonia, stable angina, unstable angina. HEART Score: History: Moderately Suspicious (1), ECG: Non specific repolarization disturbance / LBTB / PM (1), Age: > 45 and < 65 years (1), Risk Factors: > or = 3 Risk factors for atherosclerotic disease (2), [Hypercholesterolemia] [Hypertension] [+ Family HX] [Obesity] Troponin: < or = 1 x Normal Limit (0). The patient was given aspirin in the Emergency Department. MARÍA Risk Score: 1 - patient's age is greater or equal to 65 years, 1 - Three or more CAD risk factors, [Family Hx], [HTN], [Elevated Cholesterol], 1 - Recent [<24hrs] Severe Angina, 1 - Elevated Cardiac Markers, TOTAL SCORE = 4. 03:52 Data interpreted: patient monitor: rate is 54 beats/min, Pulse oximetry: on room air is karlee 97 %. Test interpretation: by ED physician or midlevel provider: ECG, plain radiologic studies. Counseling: I had a detailed discussion with the patient and/or guardian regarding: the historical points, exam findings, and any diagnostic results supporting the discharge/admit diagnosis, the presence of at least one elevated blood pressure reading (>120/80) during this emergency department visit, lab results, radiology results, the need for further work-up and treatment in the hospital. ED course: significant cad story, risk factors, trop elevate. 04:01 Medication response: Zofran relieved the patient's nausea. ED course: dr woods, agrees karlee with plan, no further orders, explained to patient admission , pt stable and understands. 08/29 02:09 Order name: Basic Metabolic Panel mg2 08/29 02:09 Order name: CBC with Diff; Complete Time: 03:44 mg2 08/29 02:09 Order name: LFT's mg2 08/29 02:09 Order name: Magnesium; Complete Time: 03:44 mg2 08/29 02:09 Order name: NT PRO-BNP; Complete Time: 03:44 mg2 08/29 02:09 Order name: PT-INR; Complete Time: 03:44 mg2 08/29 02:09 Order name: Troponin (emerg Dept Use Only); Complete Time: 03:44 mg2 08/29 02:09 Order name: XRAY Chest (1 view) mg2 08/29 02:10 Order name: Basic Metabolic Panel; Complete Time: 03:44 EDMS 08/29 02:11 Order name: Liver (Hepatic) Function; Complete Time: 03:44 EDMS 08/29 02:09 Order name: EKG; Complete Time: 02:11 mg2 08/29 02:09 Order name: Cardiac monitoring; Complete Time: 02:25 mg2 08/29 02:09 Order name: EKG - Nurse/Tech; Complete Time: 02:25 mg2 08/29 02:09 Order name: IV Saline Lock; Complete Time: 02:37 mg2 08/29 02:09 Order name: Labs collected and sent; Complete Time: 02:37 mg2 08/29 02:09 Order name: O2 Per Protocol; Complete Time: 02:25 mg2 08/29 02:09 Order name: O2 Sat Monitoring; Complete Time: 02:25 mg2 EC:54 Rate is 54 beats/min. Rhythm is regular. QRS [place] is Normal. DC interval is normal. QRS karlee interval is normal. QT interval is normal. No Q waves. T waves are Inverted. Clinical impression: Sinus bradycardia. Interpreted by me. Reviewed by me. Administered Medications: 04:14 Drug: Zofran (Ondansetron) 4 mg Route: IVP; Site: right antecubital; mg2 05:43 Follow up: Response: No adverse reaction mg2 04:14 Drug: PlaVIX 300 mg Route: PO; mg2 05:43 Follow up: Response: No adverse reaction mg2 04:16 Drug: Aspirin Chewable Tablet 324 mg Route: PO; mg2 05:43 Follow up: Response: No adverse reaction mg2 04:16 Drug: Tylenol 650 mg Route: PO; mg2 05:43 Follow up: Response: No adverse reaction mg2 04:16 Drug: morphine 2 mg Route: IVP; Site: right antecubital; mg2 04:17 Drug: Magnesium Sulfate 1 grams Route: IVPB; Infused Over: 1 hrs; Site: right mg2 antecubital; 05:43 Follow up: Response: No adverse reaction; IV Status: Completed infusion mg2 04:17 Drug: Lovenox 80 mg Route: Sub-Q; Site: right lower abdomen; mg2 05:43 Follow up: Response: No adverse reaction mg2 04:36 Drug: Nitro-Bid Ointment 2 % 1 inches Route: Transdermal; Site: anterior chest wall; mg2 05:43 Follow up: Response: No adverse reaction mg2 05:42 Drug: morphine 2 mg Route: IVP; Site: right antecubital; mg2 07:07 Follow up: Response: No adverse reaction mg2 Disposition: 03:52 Critical Care:. karlee Disposition: 08/30/19 03:58 Hospitalization ordered by Dylan Woods for Inpatient Admission. Preliminary diagnosis are Other chest pain, Angina pectoris, unspecified, Essential (primary) hypertension, Obesity, unspecified, Cardiomegaly, Hypomagnesemia. - Bed requested for Telemetry/MedSurg (Inpatient). - Status is Inpatient Admission. bp - Condition is Fair. - Problem is new. - Symptoms have improved. Critical care time excluding procedures: 03:52 Critical care time: Bedside Care: 25 minutes. Total time: 25 minutes karlee Signatures: Dispatcher [employer] [facility] Mccray MD MD cha Pena, Laura RN RN lp1 Karen Machado, RN RN cg Ghassan Lisa, RN RN bp He Pyle, RN RN mg2 Corrections: (The following items were deleted from the chart) 06:45 03:58 Hospitalization Ordered by Dylan Woods for Inpatient Admission. Preliminary cg diagnosis is Other chest pain; Angina pectoris, unspecified; Essential (primary) hypertension; Obesity, unspecified; Cardiomegaly; Hypomagnesemia. Bed requested for Telemetry/MedSurg (Inpatient). Status is Inpatient Admission. Condition is Fair. Problem is new. Symptoms have improved. karlee 08:39 06:45 08/30/2019 03:58 Hospitalization Ordered by Dylan Woods for Inpatient bp Admission. Preliminary diagnosis is Other chest pain; Angina pectoris, unspecified; Essential (primary) hypertension; Obesity, unspecified; Cardiomegaly; Hypomagnesemia. Bed requested for Telemetry/MedSurg (Inpatient). Status is Inpatient Admission. Condition is Fair. Problem is new. Symptoms have improved. cg
[2019-08-30] MEDS ORDERED: MORPHINE 2 MG/ML SYR ONE ×2 (04:04→05:46)
[2019-08-30] MEDS ORDERED: ENOXAPARIN 80 MG/0.8 ML SQ ONE (04:04)
[2019-08-30] MEDS ORDERED: ACETAMINOPHEN 325 MG TABLET ONE (04:04)
[2019-08-30] MEDS ORDERED: MAGNESIUM SULFATE 1 gm IVPB 1 GM/100 ML BAG IV ONE (04:04)
[2019-08-30] MEDS ORDERED: ONDANSETRON 4 MG/2 ML VIAL ONE (04:06)
--- NOTE | 2019-08-30 05:19 | P.HP ---
Certification for Inpatient Patient admitted to: Observation With expected LOS: <2 Midnights Practitioner: I am a practitioner with admitting privileges, knowledge of patient current condition, hospital course, and medical plan of care. Services: Services provided to patient in accordance with Admission requirements found in Title 42 Section 412.3 of the Code of Federal Regulations Patient History Date of Service: 08/30/19 Reason for admission: Chest pain History of Present Illness: 69-year-old French-speaking man with a past medical history of hypertension presented emergency department with a complaint of chest pain of onset yesterday evening. Patient described left anterior chest pain, radiating across his chest, to his bilateral on the arm and epigastric area, intensity rated as severe, no relieving or aggravating factors. Patient denied any cough or shortness of breath or palpitation or sweating or nausea. His initial troponin is mildly elevated. Chest x-ray did not demonstrate any acute disease. EKG demonstrated sinus bradycardia with nonspecific ST-T changes. No known family history of heart disease. Patient is a nonsmoker. Cardiac risk factors include hypertension. Patient is placed under observation for chest pain rule out. - Family History Family History: Reviewed- Non-Contributory - Social History Smoking Status: Never smoker Alcohol use: No CD- Drugs: No Place of Residence: Home Review of Systems Other: Except as documented, all other systems reviewed and negative. Physical Examination - Physical Exam General: Alert, In no apparent distress, Oriented x3 HEENT: Normocephalic, Mucous membr. moist/pink, Sclerae nonicteric Neck: Supple, JVD not distended Respiratory: Clear to auscultation bilaterally, Normal air movement Cardiovascular: No edema, Regular rate/rhythm, Normal S1 S2, No murmurs Gastrointestinal: Normal bowel sounds, Soft and benign, Non-distended, No tenderness Integumentary: No rashes Neurological: Normal speech, Normal strength at 5/5 x4 extr, Cranial nerves 3-12 intact, Normal affect - Studies Laboratory Data (last 24 hrs) 08/30/19 02:35: PT 11.7, INR 0.99 08/30/19 02:35: WBC 8.0, Hgb 15.2, Hct 46.1, Plt Count 284 08/30/19 02:35: Sodium 139, Potassium 4.2, BUN 21 H, Creatinine 1.00, Glucose 147 H, Magnesium 1.7 L, Total Bilirubin 0.5, AST 31, ALT 31, Alkaline Phosphatase 48 Assessment and Plan - Problems (Diagnosis) (1) Chest pain Current Visit: Yes Status: Acute (2) Hypertension Current Visit: Yes Status: Acute (3) Sinus bradycardia Current Visit: Yes Status: Acute (4) Elevated troponin Current Visit: Yes Status: Acute - Plan Place under observation. Continue to trend troponin. Start full-dose Lovenox Low dose Metoprolol, aspirin, lipid, plavix. Cardiology consult Check lipid profile, check hemoglobin A1c. Blood pressure control with amlodipine and metoprolol. - Advance Directives Does patient have a Living Will: No Does patient have a Durable POA for Healthcare: No
[2019-08-30] MEDS ORDERED: MORPHINE 4 MG/ML SYR IV PRN (09:32)
[2019-08-30] MEDS ORDERED: NITROGLYCERIN 0.4 MG/TAB SL PRN (09:32)
[2019-08-30] MEDS ORDERED: ACETAMINOPHEN 500 MG TAB PO PRN (09:32)
[2019-08-30] MEDS: ASPIRIN EC 81 MG TAB PO SCH (10:30)
[2019-08-30] MEDS: AMLODIPINE 5 MG TAB PO SCH (10:30)
[2019-08-30 10:42] LABS: Troponin I 8.69 ng/mL (0.0-0.045)
--- NOTE | 2019-08-30 11:56 | RAD REPORT ---
EXAM DESCRIPTION: RAD - Chest Single View - 08/30/2019 2:38 am CLINICAL HISTORY: CHEST PAIN Chest pain. COMPARISON: No comparisons FINDINGS: Portable technique limits examination quality. The lungs are grossly clear. The heart is mildly prominent size. No displaced fractures. IMPRESSION: No acute intrathoracic process suspected.
[2019-08-30] MEDS ORDERED: NITROGLYCERIN/D5W 50 MG/250 ML BTL IV PRN (12:11)
[2019-08-30] MEDS ORDERED: NOREPINEPHRINE 4 MG in D5W 250 ML IV PRN (12:37)
[2019-08-30] MEDS ORDERED: LIDOCAINE 1% MPF 5 ML VIAL ONE (12:52)
[2019-08-30] MEDS ORDERED: propofoL 200 MG/20 ML VIAL IV ONE ×3 (12:52→13:49)
[2019-08-30] MEDS ORDERED: GLYCOPYRROLATE 0.2 MG/ML SYR ONE (13:46)
[2019-08-30] MEDS ORDERED: HEPARIN/D5W 25,000 UNIT/500 ML BAG IV SCH (16:00)
[2019-08-30] MEDS ORDERED: HEPARIN 5000 UNIT/ML 1 ML VIAL IV ONE (16:00)
--- NOTE | 2019-08-30 18:11 | RAD REPORT ---
EXAM DESCRIPTION: US - Liver Only - 08/30/2019 6:01 pm CLINICAL HISTORY: RUQ pain COMPARISON: No comparisons FINDINGS: The liver demonstrates diffuse fatty infiltration.No focal liver lesion or intrahepatic bi liary dilatation.No evidence of portal vein thrombosis. Several gallstones noted in the gallbladder. IMPRESSION: Fatty liver. Cholelithiasis.
[2019-08-30] MEDS: METOPROLOL TAR 50 MG TAB PO SCH (19:54)
[2019-08-30] MEDS ORDERED: ENOXAPARIN 80 MG/0.8 ML SQ SCH ×2 (21:00)
[2019-08-31] MEDS: METOPROLOL TAR 50 MG TAB PO SCH (06:00)
[2019-08-31] MEDS: AMLODIPINE 5 MG TAB PO SCH (06:21)
[2019-08-31] MEDS: ASPIRIN EC 81 MG TAB PO SCH (06:21)
[2019-08-31 06:34] VITALS: BMI 39.2
[2019-08-31] MEDS ORDERED: HEPA 1000U/500MLS 2,000 UNIT/1,000 ML BAG IV ONE (06:49)
[2019-08-31 06:50] LABS: BUN Blood Urea Nitrogen 14 mg/dL (7-18); Bicarbonate 25 mmol/L (21-32); Glucose Level 129 mg/dL (74-106); Sodium Level 138 mmol/L (136-145)
[2019-08-31] MEDS ORDERED: HEPARIN 5000 UNIT/ML 1 ML VIAL ONE (06:50)
[2019-08-31] MEDS ORDERED: FENTANYL CITR 100 MCG/2 ML ONE (06:50)
[2019-08-31] MEDS ORDERED: ATROPINE SULF 1 MG/10 ML SYR IV ONE (06:50)
[2019-08-31] MEDS ORDERED: NITROGLYCERIN/D5W 25 MG/250 ML BTL IV ONE (06:50)
[2019-08-31] MEDS ORDERED: NA CHLORIDE 0.9% 0 ML ONE (06:50)
[2019-08-31] MEDS ORDERED: MIDAZOLAM HCL 2 MG/2 ML INJ ONE (06:50)
[2019-08-31] MEDS ORDERED: NITROGLYCERIN 100 MCG/ML SYR (for cath lab use only) IV ONE (06:50)
[2019-08-31] MEDS ORDERED: LIDOCAINE 1% MPF 30 ML VIAL ONE (06:50)
[2019-08-31] MEDS ORDERED: NICARDIPINE HCL 25 MG/10 ML IV ONE (06:50)
[2019-08-31 06:55] LABS: Protime INR 1.08
[2019-08-31] MEDS ORDERED: NA CHLORIDE 0.9% 1,000 ML IV SCH (07:00)
[2019-08-31 07:01] LABS: Basophils % 0.5 % (0-1.3); Hematocrit 43.1 % (39.6-49.0)
--- NOTE | 2019-08-31 10:53 | EKG ---
Test Date: 2019-08-30 Test Time: 02:14:07 Nurse Practitioner Manager: SHREE MEASUREMENT RESULTS: Intervals: Rate: 54 NH: 158 QRSD: 88 QT: 398 QTc: 377 [place]: P: 66 NH: 158 QRS: 27 T: 109 INTERPRETIVE STATEMENTS: Sinus bradycardia ST & T wave abnormality, consider lateral ischemia Abnormal ECG Compared to ECG 08/26/2018 09:09:08 ST (T wave) deviation now present Possible ischemia now present Electronically Signed On 08-31-19 10:49:19 CDT by Yovani Ortega
--- NOTE | 2019-08-31 11:26 | P.DS ---
Admission Date: 08/31/19 Discharge Date: 08/31/19 Disposition: TRANSFER TO [facility] Discharge Condition: FAIR Reason for Admission: STEMI OR Brief History of Present Illness: Patient presented with chest pain diagnosed with OR Hospital Course: Patient had progressive increase in his cardiac enzyme is some chest discomfort was transferred to the ICU started on nitroglycerin drip cardiology was consulted. Cardiac CT shows multiple vessel coronary artery disease/patient transferred to [facility] for a bypass surgery condition is stable patient is alert oriented responsive cooperative vital signs all stable Vital Signs/Physical Exam: Temp Pulse Resp BP Pulse Ox 98.4 F 48 L 15 134/59 L 97 08/31/19 10:00 08/31/19 10:00 08/31/19 10:00 08/31/19 10:00 08/31/19 09:30 General: Alert, Oriented x3 Neck: Supple Respiratory: Clear to auscultation bilaterally Gastrointestinal: Normal bowel sounds, Soft and benign Laboratory Data at Discharge: WBC 9.6 K/uL (4.3-10.9) D 08/31/19 06:14 Hgb 14.4 g/dL (13.6-17.9) 08/31/19 06:14 Hct 43.1 % (39.6-49.0) 08/31/19 06:14 Plt Count 270 K/uL (152-406) 08/31/19 06:14 PT 12.7 SECONDS (9.5-12.5) H 08/31/19 06:14 INR 1.08 08/31/19 06:14 APTT 48.9 SECONDS (24.3-36.9) H 08/31/19 06:14 Sodium 138 mmol/L (136-145) 08/31/19 06:14 Potassium 4.0 mmol/L (3.5-5.1) 08/31/19 06:14 BUN 14 mg/dL (7-18) 08/31/19 06:14 Creatinine 0.77 mg/dL (0.55-1.3) 08/31/19 06:14 Glucose 129 mg/dL (74-106) H 08/31/19 06:14 Magnesium 1.7 mg/dL (1.8-2.4) L 08/30/19 02:35 Total Bilirubin 0.5 mg/dL (0.2-1.0) 08/30/19 02:35 AST 31 U/L (15-37) 08/30/19 02:35 ALT 31 U/L (12-78) 08/30/19 02:35 Alkaline Phosphatase 48 U/L (45-117) 08/30/19 02:35 Troponin I 4.97 ng/mL (0.0-0.045) H* D 08/31/19 09:10 Triglycerides 213 mg/dL (<150) H 08/30/19 09:58 Cholesterol 182 mg/dL (<200) 08/30/19 09:58 HDL Cholesterol 43 mg/dL (40-60) 08/30/19 09:58 Cholesterol/HDL Ratio 4.23 08/30/19 09:58 Home Medications: NK [No Home Meds] 08/30/19
--- NOTE | 2019-08-31 11:35 | ECHO ---
HEIGHT: 5 ft 1 in WEIGHT: 208 lb 0 oz DATE OF STUDY: 08/31/[address]: terell truong 2-DIMENSIONAL: YES M.MODE: YES DOPPLER: YES COLOR FLOW: YES TDS: YES PORTABLE: YES DEFINITY: NO BUBBLE STUDY: NO DIAGNOSIS: CHEST PAIN, ELEVATED TROPONIN CARDIAC HISTORY: CATHERIZATION: NO SURGERY: NO PROSTHETIC VALVE: NO PACEMAKER: NO MEASUREMENTS (cm) DIASTOLIC (NORMALS) SYSTOLIC (NORMALS) IVSd 1.1 (0.6-1.2) LA Diam 2.9 (1.9-4.0) LVEF 67% LVIDd 4.6 (3.5-5.7) LVIDs 2.9 (2.0-3.5) %FS 37% LVPWd 1.1 (0.6-1.2) Ao Diam 2.8 (2.0-3.7) 2 DIMENSIONAL ASSESSMENT: RIGHT ATRIUM: NORMAL LEFT ATRIUM: NORMAL RIGHT VENTRICLE: NORMAL LEFT VENTRICLE: NORMAL TRICUSPID VALVE: NORMAL MITRAL VALVE: NORMAL PULMONIC VALVE: NORMAL AORTIC VALVE: NORMAL PERICARDIAL EFFUSION: NONE AORTIC ROOT: NORMAL LEFT VENTRICULAR WALL MOTION: NORMAL DOPPLER/COLOR FLOW: NORMAL COMMENTS: NORMAL 2D ECHOCARDIOGRAM WITH DOPPLER. NO WALL MOTION ABNORMALITY. NO EFFUSION. TECHNOLOGIST: Gifty TORREZ
[2019-08-31 13:41] VITALS: TEMP 98.2
[2019-08-31 13:51] VITALS: O2SAT 94
[2019-08-31 16:07] VITALS: BP 124/61
== END 2019-08-31 14:32 | disposition short-term general hospital (02) | DRG 282 ==
LOC: ER 01:54 → ERHOLD 05:29 → 2ND 07:51 → 3RD-ICU 13:00 → OBSVTOIN 08-31 07:40
PROVIDERS: ADMIT Internal Medicine; ATTEND Internal Medicine Sleep Medicine
PROC: 4A023N7 Measurement of Cardiac Sampling and Pressure, Left Heart, Percutaneous Approach (ICD-10-PCS; principal; 2019-08-31)
PROC: B2111ZZ Fluoroscopy of Multiple Coronary Arteries using Low Osmolar Contrast (ICD-10-PCS; 2019-08-31)
PROC: B2151ZZ Fluoroscopy of Left Heart using Low Osmolar Contrast (ICD-10-PCS; 2019-08-31)
DX: I21.9 Acute myocardial infarction, unspecified (principal); I10 Essential (primary) hypertension; R00.1 Bradycardia, unspecified; R79.89 Other specified abnormal findings of blood chemistry
CPT/HCPCS: 36415; 71045; 76705; 80048; 80061; 80076; 83036; 83735; 83880; 84484; 85025; 85347; 85610; 85730; 93005; 93306; 93458; 94760; 94762; 96365; 96372; 96375; 99285; C1893; J0583; J1644; J1650; J2250; J2270; J2405; J2704; J3010; J3475; J7030

== ENCOUNTER 2022-11-22 05:03 | Emergency (ER) | payer BC, OTHER, SELFPAY ==
--- OUTSIDE RECORDS SUMMARY | 2022-11-22 05:09 | XMS REPORT | Continuity of Care Document ---
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 94 ON STAND Problems Condition Condition Condition Status Onset Resolution Last Treating Co mments Source Name Details Category Date Date Treatment Clinician Date Respirator Respirator Disease Active [facility] insufficie insufficie [facility]cy [facility]cy 00 Center Hemodynami Hemodynami Disease Active [facility] instabilit instabilit 00:00: Me dical y y 00 Center Tricuspid Tricuspid Disease Active [facility] regurgitat regurgitat 5-08 [facility] ion ion 00:00: Medical 00 Center Postproced Postproced Disease Active 2020-[address] ural ural 5-08 [facility] hypotensio hypotensio 00:00: Me dical n n 00 Center Lactic Lactic Disease Active [facility] acidosis [facility]osis [facility] Low urine Low urine Disease Active [facility] output output 5[facility]08 [facility] Acute Acute Disease Active [facility] blood loss blood loss 5-08 [facility] anemia anemia 00:00: Medical 00 Center Fever Fever Disease Active [facility] NSTEMI NSTEMI Disease Recurre [facility] ([facility]-ST [facility]ce [facility] elevated elevated 00:00: Medica l myocardial myocardial 00 Ce nter infarction infarction ) ) Coronary Coronary Disease Active [facility] artery [facility] disease disease 00:00: Medical 00 Center Allergies, Adverse Reactions, Alerts Allergy Allergy Status Severity Reaction(s) Onset Inactive Treating Comm ents Source Name Type Date Date Clinician NO KNOWN Allergy Active [facility] Social History Social Habit Start Date Stop Date Quantity Comments Source History SDOH [facility] Alcohol Comment Medical C enter History SDOH [facility] Alcohol Std Drinks Medica l Center History SDOH [facility] Alcohol Binge Medical Jace[facility] Alcohol intake 2019-09-03 2019-09-[address] [facility] 00:00:00 00:00:00 non-drinker of Medical Ce nter alcohol (finding) Tobacco use and 2019-08-31 2019-08-[address] [facility] exposure 00:00:00 00:00:00 Medical Center History SDOH 2019-08-31 2019-08-[address] [facility] Alcohol Frequency 00:00:00 00:00:00 Medical Center Sex Assigned At [address] [facility] 00:00:00 00:[facility]:00 [facility] Center Smoking Status Start Date Stop Date Source Never sm[facility] Medications This patient has no known medications. Vital Signs Vital Name Observation Time Observation Value Comments Source HEIGHT 2019-08-31 00:00:00 154.9 cm WEIGHT 2019-08-31 00:00:00 92.3 kg HEIGHT 2019-08-31 00:00:00 154.9 cm WEIGHT 2019-08-31 00:00:00 92.3 kg Procedures This patient has no known procedures. Plan of Care Planned Activity Planned Date Details Comments Source Future Scheduled 2021-12-28 INFLUENZA VACCINE (#1) [facility] 00:00:00 [code = INFLUENZA Medical Ce nter VACCINE (#1)] Future Scheduled 2021-12-28 INFLUENZA VACCINE (#1) [facility] Test 00:00:00 [code = INFLUENZA Medical Ce nter VACCINE (#1)] Future Scheduled 2021-04-[address] [facility] Test 00:00:00 (12+) [code = Medical Center DEPRESSION SCREENING (12+)] Future Scheduled 2021-04-29 FALLS RISK SCREENING [facility] Test 00:00:00 [code = FALLS RISK Medical C enter SCREENING] Future Scheduled 2021-04-[address] [facility] Test 00:00:00 (12+) [code = Medical Center DEPRESSION SCREENING (12+)] Future Scheduled 2021-04-29 FALLS RISK SCREENING [facility] Test 00:00:00 [code = FALLS RISK Medical C enter SCREENING] Future Scheduled 2000 SHINGLES VACCINES ([address] [facility] Test 00:00:00 2) [code = SHINGLES Medical Center VACCINES (1 of 2)] Future Scheduled 2000 SHINGLES VACCINES ([address] [facility] Test 00:00:00 2) [code = SHINGLES Medical Center VACCINES (1 of 2)] Future Scheduled 1969 DTAP/TDAP/TD [facility]ACCINES [facility] 00:00:00 (1 - Tdap) [code = Medical C enter DTAP/TDAP/TD VACCINES (1 - Tdap)] Future Scheduled 1969 DTAP/TDAP/TD VACCINES [facility] 00:00:00 (1 - Tdap) [code = Medical C enter DTAP/TDAP/TD VACCINES (1 - Tdap)] Future Scheduled 1968 HEPATITIS C SCREENING [facility] 00:00:00 [code = HEPATITIS C Medical Center SCREENING] Future Scheduled 1968 HEPATITIS C [facility]CRE[facility]ING [facility] 00:00:00 [code = HEPATITIS C Medical Center SCREENING] Future Scheduled 1956 PNEUMOCOCCAL 65+ YRS ([address] [facility] Test 00:00:00 - PCV) [code = Medical Cente r PNEUMOCOCCAL 65+ YRS (1 - PCV)] Future Scheduled 1956 PNEUMOCOCCAL 65+ YRS ([address] [facility] Test 00:00:00 - PCV) [code = Medical Cente r PNEUMOCOCCAL 65+ YRS (1 - PCV)] Future Scheduled 1950 COVID-19 VACCINE (#1) [facility] 00:00:00 [code = COVID-[address] VACCINE (#1)] Future Scheduled 1950 COVID-19 VACCINE (#1) [facility] 00:00:00 [code = COVID-[address] VACCINE (#1)] Future Scheduled 1950 CT Colonography (combo) [facility] Test 00:00:00 [code = CT Colonography [facility] (combo)] Future Scheduled 1950 Screening for malignant [facility] Test 00:00:00 neoplasm of colon Medical Ce nter (procedure) [code = 686766951] Future Scheduled 1950 Screening for malignant [facility] Test 00:00:00 neoplasm of colon Medical Ce nter (procedure) [code = 428800162] Future Scheduled 1950 Screening for malignant [facility] Test 00:00:00 neoplasm of colon Medical Ce nter (procedure) [code = 963457125] Future Scheduled 1950 Screening for malignant [facility] Test 00:00:00 neoplasm of colon Medical Ce nter (procedure) [code = 042694187] Future Scheduled 1950 Sigmoidoscopy [code = [facility] 00:[facility] Sigmoidoscopy] Medical Cente r Future Scheduled 1950 CT Colonography (combo) [facility] Test 00:00:00 [code = CT [facility] ([facility])] Future Scheduled 1950 Screening for malignant [facility] Test 00:00:00 neoplasm of colon Medical Ce nter (procedure) [code = 598055387] Future Scheduled 1950 Screening for malignant [facility] Test 00:00:00 neoplasm of colon Medical Ce nter (procedure) [code = 830117380] Future Scheduled 1950 Screening for malignant [facility] Test 00:00:00 neoplasm of colon Medical Ce nter (procedure) [code = 413998205] Future Scheduled 1950 Screening for malignant [facility] Test 00:00:00 neoplasm of colon Medical Ce nter (procedure) [code = 270920514] Future Scheduled 1950 Sigmoidoscopy [code = [facility] 00:[facility]:00 Sigmoidoscopy] Medical Cente r Encounters Start End Encounter Admission Attending Care Care Encounter Source Date/Time Date/Time Type Type Clinicians Facility Department ID 2019-08-31 Inpatient [facility] [id number] SLE 16:18:00 [id number] 2019-08-31 Inpatient [facility] EVANGELINA, [facility] Surgery [id number] SLE 16:18:00 RUSS 2022-08-21 2022-08-21 Outpatient MASHA CRUM [id number] Masha 10:00:00 10:00:00 TING clayton 2022-03-07 2022-03-07 Outpatient [facility] [id number] Jayy 09:00:50 09:00:50 1109 F Mandeep Results Test Description Test Time Test Comments Results Result Comments Source HEMOGLOBIN A1c 2021-09-27 04:41:33 Test Item Value Reference Range Interpretation Comme nts HEMOGLOBIN A1c (test code = 7.0 % 4.2-5.6 H [employer] 61213) GUIDELINES FOR HGB A1C: PREDIABETES/INC REASED RISK . . . . . . . 5.7-6.4% DIAGNO SIS OF DIABETES . . . . . . . . . >=6.5% WITH CONFIRMATION OR APPROPRIATE SYM PTOMS NOTE: ASSAY MAY BE AFFECTED BY HEM OGLOBINOPATHIES (SICKLE CELL ANEMIA, S- C DISEASE, OTHERS) OR ARTIFICIALLY LO WERED BY DECREASED RED CELL SURVIVAL ( HEMOLYTIC ANEMIAS, BLOOD LOSS, ETC.). CO NSIDER ALTERNATE TESTING OR LABORATORY C ONSULTATION. UNLESS OTHERWISE INDIC ATED, ALL TESTING PERFORMED [facility], [place]. [address] [place] [id number] [place] [address] DIRECTOR: SHIRLEY BRODY M.D. CLIA NUMBER [id number] [place] [id number] COMPREHENSIVE METABOLIC [id number] 04:10:55 Test Item Value Reference Range Interpretation Comments GLUCOSE (test code = 137 MG/DL 70-99 H 2216) BUN (test code = 19 MG/DL 8-23 2207) CREATININE (test 0.83 MG/DL 0.80-1.40 code = 2214) eGFR (2020 CKD-EPI) 94 ML/MIN/1.73 >60 (test code = 94731) CALC BUN/CREAT (test 23 RATIO 6-28 code = 2235) SODIUM (test code = 140 MEQ/L 339-228 3200) POTASSIUM (test code 4.8 MEQ/L 3.5-5.4 = 2227) CHLORIDE (test code 107 MEQ/L 95-107 = 2214) CARBON DIOXIDE (test 25 MEQ/L 19-31 code = 220) CALCIUM (test code = 9.8 MG/DL 8.5-10.5 2208) PROTEIN, TOTAL (test 7.3 G/DL 6.1-8.3 code = 2228) ALBUMIN (test code = 4.0 G/DL 3.5-5.2 2200) CALC GLOBULIN (test 3.3 G/DL 1.9-3.7 code = 224) CALC A/G RATIO (test 1.2 RATIO 1.0-2.6 code = 223) BILIRUBIN, TOTAL 0.6 MG/DL See_Comment [Automated message] (test code = 2207) The syste m which generated this result transmit ailin reference range : <=1.2. The refe rence range was not u sed to interpret th is result as normal/abnormal . ALKALINE PHOSPHATASE 60 U/L 40-125 (test code = 2204) AST (test code = 30 U/L 9-50 2217) ALT (test code = 16 U/L 5-50 2218) LIPID [id number] 04:10:55 Test Item Value Reference Range Interpretation Comments CHOLESTEROL (test 186 MG/DL <200 code = 2210) TRIGLYCERIDES (test 245 MG/DL <150 H code = 2232) HDL CHOLESTEROL (test 33 MG/DL >39 L code = 2220) CALC LDL CHOL (test 116 MG/DL <100 H NOTE: C ALCULATED LDL code = 2237) IS BASED ON MICHAEL-DALAL METHOD WHICHINCLUDES ADJUSTABLE TRIGLYCERIDE:VL DL CHOLESTEROL RAT IO.THIS FACTOR VARIES B Y MEASURED TRIGLY CERIDE AND NON-HDLCHOL ESTEROL CONCENTRATIONS WITH INCREASED CALCU LATED LDL SEENIN HIGH ER TRIGLYCERIDE OR LOWER NON-HDL SPECIME NS. FOR MOREINFORMATION , SEE CLIENT ANNOUNCE MENT AT [email or web address] [email or web address] LDL/HDL 3.52 RATIO <3.55 (test code = 2238) LIPID [id number] 05:36:56 Test Item Value Reference Range Interpretation Comments CHOLESTEROL (test 187 MG/DL <200 code = 2210) TRIGLYCERIDES (test 188 MG/DL <150 H code = 2232) HDL CHOLESTEROL (test 36 MG/DL >39 L code = 2220) CALC LDL CHOL (test 121 MG/DL <100 H NOTE: C ALCULATED LDL code = 2237) IS BASED ON MICHAEL-DALAL METHOD WHICHINCLUDES ADJUSTABLE TRIGLYCERIDE:VL DL CHOLESTEROL RAT IO.THIS FACTOR VARIES B Y MEASURED TRIGLY CERIDE AND NON-HDLCHOL ESTEROL CONCENTRATIONS WITH INCREASED CALCU LATED LDL SEENIN HIGH ER TRIGLYCERIDE OR LOWER NON-HDL SPECIME NS. FOR MOREINFORMATION , SEE CLIENT ANNOUNCE MENT AT [email or web address] RATIO LDL/HDL 3.36 RATIO <3.55 (test code = 2238) COMPREHENSIVE METABOLIC [id number] 05:36:56 Test Item Value Reference Range Interpretation Comments GLUCOSE (test code = 111 MG/DL 70-99 H 2216) BUN (test code = 16 MG/DL 8-23 2207) CREATININE (test 0.85 MG/DL 0.80-1.40 code = 2214) eGFR (2020 CKD-EPI) 93 ML/MIN/1.73 >60 (test code = 93970) CALC BUN/CREAT (test 19 RATIO 6-28 code = 2235) SODIUM (test code = 139 MEQ/L 893-434 2823) POTASSIUM (test code 5.2 MEQ/L 3.5-5.4 = 2227) CHLORIDE (test code 103 MEQ/L 95-107 = 2214) CARBON DIOXIDE (test 23 MEQ/L 19-31 code = 220) CALCIUM (test code = 9.8 MG/DL 8.5-10.5 2208) PROTEIN, TOTAL (test 7.8 G/DL 6.1-8.3 code = 222) ALBUMIN (test code = 4.2 G/DL 3.5-5.2 2200) CALC GLOBULIN (test 3.6 G/DL 1.9-3.7 code = 2240) CALC A/G RATIO (test 1.2 RATIO 1.0-2.6 code = 2234) BILIRUBIN, TOTAL 0.5 MG/DL See_Comment [Automated message] (test code = 2207) The syste m which generated this result transmit ailin reference range : <=1.2. The refe rence range was not u sed to interpret th is result as normal/abnormal . ALKALINE PHOSPHATASE 56 U/L 40-125 (test code = 2203) AST (test code = 32 U/L 9-50 2217) ALT (test code = 14 U/L 5-50 2218) HEMOGLOBIN [id number] 05:28:13 Test Item Value Reference Range Interpretation Comments HEMOGLOBIN A1c (test 6.9 % 4.2-5.6 H [employer] code = 23642) ASSOCIATION IDELINES FOR HGB A1C: PREDIABETES/INC REASED RISK . . . . . . . 5.7 -6.4% DIAGNOSIS OF DI ABETES . . . . . . . . . >=6 .5% WITH CONFIRMATION OR APPROPRIATE SYMPTOMS NOTE: ASSAY MAY BE AFFECTED BY HEMOGLOBINOPATH IES (SICKLE CELL ANEMIA, S- C DISEASE, OTHERS) OR JARED FICIALLY LOWERED BY DECR EASED RED CELL SURVIVAL ( HEMOLYTIC ANEMIAS, BLOOD LOSS, ETC.). CONSIDER ALTERN ATE TESTING OR LABORATORY C ONSULTATION. UNLESS OTHERWIS E INDICATED, ALL TESTING PER FORMED ATCLINICAL PATH [facility], [place]. [address] [place] [address] LABORATORY DIRE CTOR: SHIRLEY BRODY M.D. CLIA NUMBER [id number] [place]. [id number] 06:10:00 Test Item Value Reference Range Interpretation Comments PHOSPHORUS (BEAKER) (test code = 3.9 mg/dL 2.3-4.7 604) Clinic Nurse ID - PIAYA [id number] 06:10:00 Test Item Value Reference Range Interpretation Comments MAGNESIUM (BEAKER) (test code = 2.0 mg/dL 1.6-2.6 627) Clinic Nurse ID - PIAYA LBASIC METABOLIC [id number] 06:10:00 Test Item Value Reference Range Interpretation Comments SODIUM (BEAKER) 134 meq/L 136-145 L (test code = 381) POTASSIUM (BEAKER) 3.5 meq/L 3.5-5.1 (test code = 379) CHLORIDE (BEAKER) 103 meq/L 98-107 (test code = 382) CO2 (BEAKER) (test 22 meq/L 22-29 code = 355) BLOOD UREA NITROGEN 14 mg/dL 7-21 (BEAKER) (test code = 354) CREATININE (BEAKER) 0.76 mg/dL 0.57-1.25 (test code = 358) GLUCOSE RANDOM 133 mg/dL 70-105 H (BEAKER) (test code = 652) CALCIUM (BEAKER) 8.3 mg/dL 8.4-10.2 L (test code = 697) EGFR (BEAKER) (test 102 mL/min/1.73 ESTIM ATED GFR IS code = 1092) sq m NOT ACCURATE CREATININE CLEARANCE IN PREDICTING GLOMERULAR FILTRATION RATE . ESTIMATED GFR I S NOT APPLICABLE FOR DIALYSIS PATIEN TS. Clinic Nurse ID - PIAYA LCBC (HEMOGRAM ONLY)2019-09-09 05:38:00 Test Item Value Reference Range Interpretation Comments WHITE BLOOD CELL COUNT (BEAKER) 12.5 K/ L 3.5-10.5 H (test code = 775) RED BLOOD CELL COUNT (BEAKER) 4.04 M/ L 4.63-6.08 L (test code = 761) HEMOGLOBIN (BEAKER) (test code = 11.8 GM/DL 13.7-17.5 L 410) HEMATOCRIT (BEAKER) (test code = 35.9 % 40.1-51.0 L 411) MEAN CORPUSCULAR VOLUME (BEAKER) 88.9 fL 79.0-92.2 (test code = 753) MEAN CORPUSCULAR HEMOGLOBIN 29.2 pg 25.7-32.2 (BEAKER) (test code = 751) MEAN CORPUSCULAR HEMOGLOBIN CONC 32.9 GM/DL 32.3-36.5 (BEAKER) (test code = 752) RED CELL DISTRIBUTION WIDTH 14.0 % 11.6-14.4 (BEAKER) (test code = 412) PLATELET COUNT (BEAKER) (test 435 K/CU MM 150-450 code = 756) MEAN PLATELET VOLUME (BEAKER) 9.4 fL 9.4-12.4 (test code = 754) NUCLEATED RED BLOOD CELLS 0 /100 WBC 0-0 (BEAKER) (test code = 413) POCT-GLUCOSE [id number] 16:47:00 Test Item Value Reference Range Interpretation Comments POC-GLUCOSE METER 114 mg/dL 70-110 H : TESTED A T [facility] 6720 (BEAKER) (test code = [facility], 1538) 11641: Clinic Nurse/Techni maurice ID = [id number] for OR PHEY, JENNIFER POCT-GLUCOSE [id number] 11:56:00 Test Item Value Reference Range Interpretation Comments POC-GLUCOSE METER 121 mg/dL 70-110 H : TESTED A T [facility] 6720 (BEAKER) (test code = [facility], 1538) 70360: Clinic Nurse/Techni maurice ID = [id number] for OR PHEY, JENNIFER POCT-GLUCOSE [id number] 09:14:00 Test Item Value Reference Range Interpretation Comments POC-GLUCOSE METER 143 mg/dL 70-110 H : TESTED A T [facility] 6720 (BEAKER) (test code = [facility], 1538) 53949: Clinic Nurse/Techni maurice ID = [id number] for OR PHEY, JENNIFER [id number] 05:05:00 Test Item Value Reference Range Interpretation Comments PHOSPHORUS (BEAKER) (test code = 2.9 mg/dL 2.3-4.7 604) Clinic Nurse ID - ELIUD [id number] 05:05:00 Test Item Value Reference Range Interpretation Comments MAGNESIUM (BEAKER) (test code = 2.1 mg/dL 1.6-2.6 627) Clinic Nurse ID - ELIUD LBASIC METABOLIC [id number] 05:05:00 Test Item Value Reference Range Interpretation Comments SODIUM (BEAKER) 135 meq/L 136-145 L (test code = 381) POTASSIUM (BEAKER) 3.9 meq/L 3.5-5.1 (test code = 379) CHLORIDE (BEAKER) 105 meq/L 98-107 (test code = 382) CO2 (BEAKER) (test 23 meq/L 22-29 code = 355) BLOOD UREA NITROGEN 13 mg/dL 7-21 (BEAKER) (test code = 354) CREATININE (BEAKER) 0.77 mg/dL 0.57-1.25 (test code = 358) GLUCOSE RANDOM 124 mg/dL 70-105 H (BEAKER) (test code = 652) CALCIUM (BEAKER) 8.3 mg/dL 8.4-10.2 L (test code = 697) EGFR (BEAKER) (test 100 mL/min/1.73 ESTIM ATED GFR IS code = 1092) sq m NOT ACCURATE CREATININE CLEARANCE IN PREDICTING GLOMERULAR FILTRATION RATE . ESTIMATED GFR I S NOT APPLICABLE FOR DIALYSIS PATIEN TS. Clinic Nurse ID - PIAYA LCBC (HEMOGRAM ONLY)2019-09-08 03:40:00 Test Item Value Reference Range Interpretation Comments WHITE BLOOD CELL COUNT (BEAKER) 11.6 K/ L 3.5-10.5 H (test code = 775) RED BLOOD CELL COUNT (BEAKER) 3.62 M/ L 4.63-6.08 L (test code = 761) HEMOGLOBIN (BEAKER) (test code = 10.7 GM/DL 13.7-17.5 L 410) HEMATOCRIT (BEAKER) (test code = 32.1 % 40.1-51.0 L 411) MEAN CORPUSCULAR VOLUME (BEAKER) 88.7 fL 79.0-92.2 (test code = 753) MEAN CORPUSCULAR HEMOGLOBIN 29.6 pg 25.7-32.2 (BEAKER) (test code = 751) MEAN CORPUSCULAR HEMOGLOBIN CONC 33.3 GM/DL 32.3-36.5 (BEAKER) (test code = 752) RED CELL DISTRIBUTION WIDTH 13.7 % 11.6-14.4 (BEAKER) (test code = 412) PLATELET COUNT (BEAKER) (test 339 K/CU MM 150-450 code = 756) MEAN PLATELET VOLUME (BEAKER) 9.7 fL 9.4-12.4 (test code = 754) NUCLEATED RED BLOOD CELLS 0 /100 WBC 0-0 (BEAKER) (test code = 413) POCT-GLUCOSE [id number] 21:15:00 Test Item Value Reference Range Interpretation Comments POC-GLUCOSE METER 180 mg/dL 70-110 H : TESTED A T [facility] 6720 (BEAKER) (test code = [facility], 1538) 28170: Clinic Nurse/Techni maurice ID = [id number] for Yana Chaudhry POCT-GLUCOSE [id number] 17:18:00 Test Item Value Reference Range Interpretation Comments POC-GLUCOSE METER 121 mg/dL 70-110 H : TESTED A T [facility] 6720 (BEAKER) (test code = [facility], 1538) 77587: Clinic Nurse/Techni maurice ID = [id number] for [place] LLIAMS, TYNEKA RAD, CHEST, 1 VIEW, NON [id number] 12:44:00Reason for exam:->chest tube removalShould this be performed at the bedside?->YesFINAL REPORT CLINICAL HISTORY: chest tube removal TECHNIQUE: 1 view of the chest. COMPARISON: 09/07/2019 IMPRESSION: The left chest tube has been removed. The small left apical pneumothorax is unchanged. Left greater than right basilar atelectasis is again seen with blunting of both costophrenic angles. The cardiomediastinal silhouette is magnified by technique with sternotomy wires. Signed: Grace Ruiz Verified Date/Time: 09/07/2019 12:44:42 Reading Location: [facility] Radiology Reading Room POCT-GLUCOSE [id number] 11:30:00 Test Item Value Reference Range Interpretation Comments POC-GLUCOSE METER 159 mg/dL 70-110 H : TESTED A T [facility] 6720 (BEAKER) (test code = [facility], 1538) 26011: Clinic Nurse/Techni maurice ID = [id number] for [place] LLIAMS, TYNEKA RAD, CHEST, 1 VIEW, NON [id number] 10:06:00Reason for exam:->eval left effusionShould this be performed at the bedside?->YesFINAL REPORT CLINICAL HISTORY: eval left effusion TECHNIQUE: 1 view of the chest. COMPARISON: 09/06/2019 IMPRESSION: Two of the three left chest tubes have been removed. A small right apical pneumothorax appears slightly increased. Bibasilar atelectasis is again seen with blunting of the left costophrenic angle. Cardiomegaly is again seen poststernotomy. The right jugular sheath has been removed. Signed: Grace Ruiz MDReport Verified Date/Time: 09/07/2019 10:06:02 Reading Location: [facility] Radiology Reading Room POCT-GLUCOSE [id number] 09:57:00 Test Item Value Reference Range Interpretation Comments POC-GLUCOSE METER 152 mg/dL 70-110 H : TESTED A T [facility] 6720 (BEAKER) (test code = [facility] [employer] [facility], 153) 62756: Clinic Nurse/Techni maurice ID = [id number] for LYDIA WILSON POCT-GLUCOSE [id number] 09:47:00 Test Item Value Reference Range Interpretation Comments POC-GLUCOSE METER 155 mg/dL 70-110 H : TESTED A T [facility] 6720 (BEAKER) (test code = [facility] [employer] [facility], 1538) 07130: Clinic Nurse/Techni maurice ID = [id number] for RO QING, AMY POCT-GLUCOSE [id number] 09:45:00 Test Item Value Reference Range Interpretation Comments POC-GLUCOSE METER 168 mg/dL 70-110 H : TESTED A T [facility] 6720 (BEAKER) (test code = [facility] [employer] [facility], 1538) 85106: Clinic Nurse/Techni maurice ID = [id number] for RO QING, AMY POCT-GLUCOSE [id number] 09:36:00 Test Item Value Reference Range Interpretation Comments POC-GLUCOSE METER 117 mg/dL 70-110 H : TESTED A T [facility] 6720 (BEAKER) (test code = [facility] [employer] [facility], 153) 07942: Clinic Nurse/Techni maurice ID = [id number] for TING [place] [facility] METABOLIC [id number] 05:37:00 Test Item Value Reference Range Interpretation Comments SODIUM (BEAKER) 136 meq/L 136-145 (test code = 381) POTASSIUM (BEAKER) 3.8 meq/L 3.5-5.1 (test code = 379) CHLORIDE (BEAKER) 106 meq/L 98-107 (test code = 382) CO2 (BEAKER) (test 25 meq/L 22-29 code = 355) BLOOD UREA NITROGEN 15 mg/dL 7-21 (BEAKER) (test code = 354) CREATININE (BEAKER) 0.74 mg/dL 0.57-1.25 (test code = 358) GLUCOSE RANDOM 131 mg/dL 70-105 H (BEAKER) (test code = 652) CALCIUM (BEAKER) 7.9 mg/dL 8.4-10.2 L (test code = 697) EGFR (BEAKER) (test 105 mL/min/1.73 ESTIM ATED GFR IS code = 1092) sq m NOT ACCURATE CREATININE CLEARANCE IN PREDICTING GLOMERULAR FILTRATION RATE . ESTIMATED GFR I S NOT APPLICABLE FOR DIALYSIS PATIEN TS. Clinic Nurse ID - ANCELMO [id number] 05:35:00 Test Item Value Reference Range Interpretation Comments PHOSPHORUS (BEAKER) (test code = 2.0 mg/dL 2.3-4.7 L 604) Clinic Nurse ID - ANCELMO [id number] 05:35:00 Test Item Value Reference Range Interpretation Comments MAGNESIUM (BEAKER) (test code = 2.2 mg/dL 1.6-2.6 627) Clinic Nurse ID - ANCELMO MCBC (HEMOGRAM ONLY)2019-09-07 05:04:00 Test Item Value Reference Range Interpretation Comments WHITE BLOOD CELL COUNT (BEAKER) 13.2 K/ L 3.5-10.5 H (test code = 775) RED BLOOD CELL COUNT (BEAKER) 3.39 M/ L 4.63-6.08 L (test code = 761) HEMOGLOBIN (BEAKER) (test code = 9.9 GM/DL 13.7-17.5 L 410) HEMATOCRIT (BEAKER) (test code = 30.6 % 40.1-51.0 L 411) MEAN CORPUSCULAR VOLUME (BEAKER) 90.3 fL 79.0-92.2 (test code = 753) MEAN CORPUSCULAR HEMOGLOBIN 29.2 pg 25.7-32.2 (BEAKER) (test code = 751) MEAN CORPUSCULAR HEMOGLOBIN CONC 32.4 GM/DL 32.3-36.5 (BEAKER) (test code = 752) RED CELL DISTRIBUTION WIDTH 13.8 % 11.6-14.4 (BEAKER) (test code = 412) PLATELET COUNT (BEAKER) (test 269 K/CU MM 150-450 code = 756) MEAN PLATELET VOLUME (BEAKER) 10.2 fL 9.4-12.4 (test code = 754) NUCLEATED RED BLOOD CELLS 0 /100 WBC 0-0 (BEAKER) (test code = 413) BASIC METABOLIC [id number] 05:12:00 Test Item Value Reference Range Interpretation Comments SODIUM (BEAKER) 136 meq/L 136-145 (test code = 381) POTASSIUM (BEAKER) 4.0 meq/L 3.5-5.1 (test code = 379) CHLORIDE (BEAKER) 107 meq/L 98-107 (test code = 382) CO2 (BEAKER) (test 23 meq/L 22-29 code = 355) BLOOD UREA NITROGEN 16 mg/dL 7-21 (BEAKER) (test code = 354) CREATININE (BEAKER) 0.76 mg/dL 0.57-1.25 (test code = 358) GLUCOSE RANDOM 125 mg/dL 70-105 H (BEAKER) (test code = 652) CALCIUM (BEAKER) 7.5 mg/dL 8.4-10.2 L (test code = 697) EGFR (BEAKER) (test 102 mL/min/1.73 ESTIM ATED GFR IS code = 1092) sq m NOT ACCURATE CREATININE CLEARANCE IN PREDICTING GLOMERULAR FILTRATION RATE . ESTIMATED GFR I S NOT APPLICABLE FOR DIALYSIS PATIEN TS. Clinic Nurse ID - [id number] 05:11:00 Test Item Value Reference Range Interpretation Comments PHOSPHORUS (BEAKER) (test code = 2.0 mg/dL 2.3-4.7 L 604) Clinic Nurse ID - [id number] 05:11:00 Test Item Value Reference Range Interpretation Comments MAGNESIUM (BEAKER) (test code = 2.3 mg/dL 1.6-2.6 627) Clinic Nurse ID - DBCBC (HEMOGRAM ONLY)2019-09-06 04:50:00 Test Item Value Reference Range Interpretation Comments WHITE BLOOD CELL COUNT (BEAKER) 14.9 K/ L 3.5-10.5 H (test code = 775) RED BLOOD CELL COUNT (BEAKER) 2.95 M/ L 4.63-6.08 L (test code = 761) HEMOGLOBIN (BEAKER) (test code = 8.8 GM/DL 13.7-17.5 L 410) HEMATOCRIT (BEAKER) (test code = 27.1 % 40.1-51.0 L 411) MEAN CORPUSCULAR VOLUME (BEAKER) 91.9 fL 79.0-92.2 (test code = 753) MEAN CORPUSCULAR HEMOGLOBIN 29.8 pg 25.7-32.2 (BEAKER) (test code = 751) MEAN CORPUSCULAR HEMOGLOBIN CONC 32.5 GM/DL 32.3-36.5 (BEAKER) (test code = 752) RED CELL DISTRIBUTION WIDTH 13.9 % 11.6-14.4 (BEAKER) (test code = 412) PLATELET COUNT (BEAKER) (test 188 K/CU MM 150-450 code = 756) MEAN PLATELET VOLUME (BEAKER) 10.8 fL 9.4-12.4 (test code = 754) NUCLEATED RED BLOOD CELLS 0 /100 WBC 0-0 (BEAKER) (test code = 413) RAD, CHEST, 1 VIEW, NON [id number] 01:38:00Reason for exam:->s/p [id number] this be performed at the bedside?->YesFINAL REPORT RAD, CHEST, 1 VIEW, NON DEPT INDICATION: s/p CABGx3 COMPARISON: Prior day's exam FINDINGS: Portable frontal view of the chest. IMPRESSION: Support Lines: Stable. Lungsand pleura: No significant change in bibasilar streaky airspace opacities and trace left pleural effusion. No new airspace consolidation. There is a trace left apical pneumothorax increased compared to prior.Heart and mediastinum: Stable contours. Stable surgical changes.Additional findings: None. Signed: Jossue Rodríguez Verified Date/Time: 09/06/2019 01:38:58 POCT- GLUCOSE [id number] 01:09:00 Test Item Value Reference Range Interpretation Comments POC-GLUCOSE METER 163 mg/dL 70-110 H : TESTED A T [facility] 6720 (BEAKER) (test code = [facility] [place], 1538) [address]: Clinic Nurse/Techni maurice ID = [id number] for JEAN CLAUDE VAZQUEZ POCT-GLUCOSE [id number] 18:00:00 Test Item Value Reference Range Interpretation Comments POC-GLUCOSE METER 167 mg/dL 70-110 H : TESTED A T [facility] 6720 (BEAKER) (test code = [facility] [place], 1538) [address]: Clinic Nurse/Techni maurice ID = [id number] for MOISES MUÑOZ BASIC METABOLIC [id number] 16:17:00 Test Item Value Reference Range Interpretation Comments SODIUM (BEAKER) 135 meq/L 136-145 L (test code = 381) POTASSIUM (BEAKER) 4.2 meq/L 3.5-5.1 (test code = 379) CHLORIDE (BEAKER) 107 meq/L 98-107 (test code = 382) CO2 (BEAKER) (test 22 meq/L 22-29 code = 355) BLOOD UREA NITROGEN 15 mg/dL 7-21 (BEAKER) (test code = 354) CREATININE (BEAKER) 0.78 mg/dL 0.57-1.25 (test code = 358) GLUCOSE RANDOM 141 mg/dL 70-105 H (BEAKER) (test code = 652) CALCIUM (BEAKER) 7.8 mg/dL 8.4-10.2 L (test code = 697) EGFR (BEAKER) (test 99 mL/min/1.73 ESTIMA AILIN GFR IS code = 1092) sq m NOT ACCURATE CREATININE CLEARANCE IN PREDICTING GLOMERULAR FILTRATION RATE . ESTIMATED GFR I S NOT APPLICABLE FOR DIALYSIS PATIEN TS. Clinic Nurse ID - APR [id number] 16:15:00 Test Item Value Reference Range Interpretation Comments LIPASE (BEAKER) (test code = 749) 46 U/L 8-78 Clinic Nurse ID - TONI [id number] 16:15:00 Test Item Value Reference Range Interpretation Comments AMYLASE (BEAKER) (test code = 349) 58 U/L 25-125 Clinic Nurse ID - APR CPOCT-GLUCOSE [id number] 12:28:00 Test Item Value Reference Range Interpretation Comments POC-GLUCOSE METER 123 mg/dL 70-110 H : TESTED A T [facility] 6720 (BEAKER) (test code = [facility], 1538) [address]: Clinic Nurse/Techni maurice ID = [id number] for VA MOISES DUONG RAD, ABDOMEN/KUB, 1 VIEW [id number] 10:22:00Reason for exam:->post op , ?ileusShould this be performed at the bedside?->YesFINAL REPORT ONE VIEW ABDOMEN HISTORY: Ileus COMPARISON: No comparison abdominal imaging FINDINGS: 3 supine AP images of the abdomen were obtained. There is gas throughout multiplenondilated small bowel loops and throughout the large intestine. No dilated loops of large or small intestine are identified. No obvious free intraperitoneal air. A left-sided chest tube and several substernal drains are noted. There are atelectatic changes at the left lung base. Signed: Shelli Trevino MDReport Verified Date/Time: 09/05/2019 10:22:59 Reading Location: [address] Transitional Reading Room VANCOMYCIN LEVEL, [id number] 09:12:00 Test Item Value Reference Range Interpretation Comments VANCOMYCIN TROUGH (SP) (test 10.6 ug/mL 10.0-20.0 code = 522) Clinic Nurse ID - TONI CPOCT-GLUCOSE [id number] 07:31:00 Test Item Value Reference Range Interpretation Comments POC-GLUCOSE METER 120 mg/dL 70-110 H : TESTED A T [facility] 6720 (BEAKER) (test code = [facility], 153) [address]: Clinic Nurse/Techni maurice ID = [id number] for [place] MOISES DUONG POCT-GLUCOSE [id number] 05:28:00 Test Item Value Reference Range Interpretation Comments POC-GLUCOSE METER 144 mg/dL 70-110 H : TESTED A T [facility] 6720 (BEAKER) (test code = [facility], 1538) [address]: Clinic Nurse/Techni maurice ID = [id number] for DO JEAN CLAUDE BROWN OXYGEN SATURATION, [id number] 05:16:00 Test Item Value Reference Range Interpretation Comments O2 SATURATION (MEASURED) (BEAKER) 62.7 % (test code = 1455) BASIC METABOLIC [id number] 03:50:00 Test Item Value Reference Range Interpretation Comments SODIUM (BEAKER) 136 meq/L 136-145 (test code = 381) POTASSIUM (BEAKER) 4.3 meq/L 3.5-5.1 (test code = 379) CHLORIDE (BEAKER) 108 meq/L 98-107 H (test code = 382) CO2 (BEAKER) (test 19 meq/L 22-29 L code = 355) BLOOD UREA NITROGEN 14 mg/dL 7-21 (BEAKER) (test code = 354) CREATININE (BEAKER) 0.84 mg/dL 0.57-1.25 (test code = 358) GLUCOSE RANDOM 161 mg/dL 70-105 H (BEAKER) (test code = 652) CALCIUM (BEAKER) 7.7 mg/dL 8.4-10.2 L (test code = 697) EGFR (BEAKER) (test 91 mL/min/1.73 ESTIMA AILIN GFR IS code = 1092) sq m NOT ACCURATE CREATININE CLEARANCE IN PREDICTING GLOMERULAR FILTRATION RATE . ESTIMATED GFR I S NOT APPLICABLE FOR DIALYSIS PATIEN TS. Clinic Nurse ID - [id number] 03:48:00 Test Item Value Reference Range Interpretation Comments PHOSPHORUS (BEAKER) (test code = 3.0 mg/dL 2.3-4.7 604) Clinic Nurse ID - [id number] 03:48:00 Test Item Value Reference Range Interpretation Comments MAGNESIUM (BEAKER) (test code = 2.2 mg/dL 1.6-2.6 627) Clinic Nurse ID - LACBC (HEMOGRAM ONLY)2019-09-05 03:13:00 Test Item Value Reference Range Interpretation Comments WHITE BLOOD CELL COUNT (BEAKER) 20.1 K/ L 3.5-10.5 H (test code = 775) RED BLOOD CELL COUNT (BEAKER) 3.34 M/ L 4.63-6.08 L (test code = 761) HEMOGLOBIN (BEAKER) (test code = 9.9 GM/DL 13.7-17.5 L 410) HEMATOCRIT (BEAKER) (test code = 30.3 % 40.1-51.0 L 411) MEAN CORPUSCULAR VOLUME (BEAKER) 90.7 fL 79.0-92.2 (test code = 753) MEAN CORPUSCULAR HEMOGLOBIN 29.6 pg 25.7-32.2 (BEAKER) (test code = 751) MEAN CORPUSCULAR HEMOGLOBIN CONC 32.7 GM/DL 32.3-36.5 (BEAKER) (test code = 752) RED CELL DISTRIBUTION WIDTH 14.2 % 11.6-14.4 (BEAKER) (test code = 412) PLATELET COUNT (BEAKER) (test 177 K/CU MM 150-450 code = 756) MEAN PLATELET VOLUME (BEAKER) 10.6 fL 9.4-12.4 (test code = 754) NUCLEATED RED BLOOD CELLS 0 /100 WBC 0-0 (BEAKER) (test code = 413) POCT-GLUCOSE [id number] 03:02:00 Test Item Value Reference Range Interpretation Comments POC-GLUCOSE METER 150 mg/dL 70-110 H : TESTED A T [facility] ([facility]) (test code = [place] [facility], 1538) [address]: Clinic Nurse/Techni maurice ID = [id number] for Dileep GIBSON RAD, CHEST, 1 VIEW, NON [id number] 02:49:00Reason for exam:->s/p [id number] this be performed at the bedside?->YesFINAL REPORT RAD, CHEST, 1 VIEW, NON DEPT INDICATION: s/p CABGx3 COMPARISON: Prior day's exam FINDINGS: Portable frontal view of the chest. IMPRESSION: Support Lines: Interval extubation and removal of the enteric tube. [place]-Major catheter has been removed with a right IJ sheath remaining. Stable left chest tube. Lungs and pleura: Unchanged mild bilateral parenchymal opacities andsmall left pleural effusion. No pneumothorax.Heart and mediastinum: Stable contours. Additional findings: None. Signed: Jossue Rodríguez Verified Date/Time: 09/05/2019 02:49:52 -GLUCOSE [id number] 00:08:00 Test Item Value Reference Range Interpretation Comments POC-GLUCOSE METER 104 mg/dL 70-110 : TESTED A T [facility] 6720 (BEAKER) (test code = [facility], 1538) 89[address]: Clinic Nurse/Techni maurice ID = [id number] for DO MINGUEZ, JEAN CLAUDE OXYGEN SATURATION, [id number] 23:57:00 Test Item Value Reference Range Interpretation Comments O2 SATURATION (MEASURED) (BEAKER) 93.3 % (test code = 1455) Please obtain 2 hours after Epinephrine stopped. Thank you.POCT-GLUCOSE METER 2019-09-04 23:23:00 Test Item Value Reference Range Interpretation Comments POC-GLUCOSE METER 105 mg/dL 70-110 : TESTED A T [facility] 6720 (BEAKER) (test code = [facility], 1538) 604[address]: Clinic Nurse/Techni maurice ID = [id number] for Dileep GIBSON POCT-GLUCOSE [id number] 22:14:00 Test Item Value Reference Range Interpretation Comments POC-GLUCOSE METER 106 mg/dL 70-110 : TESTED A T [facility] 6720 (BEAKER) (test code = [facility], 1538) 060[address]: Clinic Nurse/Techni maurice ID = [id number] for DO MINGUEZ, JEAN CLAUDE POCT-GLUCOSE [id number] 20:20:00 Test Item Value Reference Range Interpretation Comments POC-GLUCOSE METER 162 mg/dL 70-110 H : TESTED A T [facility] 6720 (BEAKER) (test code = [facility], 1538) 18[address]: Clinic Nurse/Techni maurice ID = [id number] for DO MINGUEZ, JEAN CLAUDE OXYGEN SATURATION, [id number] 18:28:00 Test Item Value Reference Range Interpretation Comments O2 SATURATION (MEASURED) (BEAKER) 70.9 % (test code = 1455) BASIC METABOLIC [id number] 17:50:00 Test Item Value Reference Range Interpretation Comments SODIUM (BEAKER) 138 meq/L 136-145 (test code = 381) POTASSIUM (BEAKER) 4.0 meq/L 3.5-5.1 (test code = 379) CHLORIDE (BEAKER) 109 meq/L 98-107 H (test code = 382) CO2 (BEAKER) (test 22 meq/L 22-29 code = 355) BLOOD UREA NITROGEN 12 mg/dL 7-21 (BEAKER) (test code = 354) CREATININE (BEAKER) 0.80 mg/dL 0.57-1.25 (test code = 358) GLUCOSE RANDOM 133 mg/dL 70-105 H (BEAKER) (test code = 652) CALCIUM (BEAKER) 7.9 mg/dL 8.4-10.2 L (test code = 697) EGFR (BEAKER) (test 96 mL/min/1.73 ESTIMA AILIN GFR IS code = 1092) sq m NOT ACCURATE CREATININE CLEARANCE IN PREDICTING GLOMERULAR FILTRATION RATE . ESTIMATED GFR I S NOT APPLICABLE FOR DIALYSIS PATIEN TS. Clinic Nurse ID - [id number] 17:41:00 Test Item Value Reference Range Interpretation Comments MAGNESIUM (BEAKER) (test code = 2.0 mg/dL 1.6-2.6 627) Clinic Nurse ID - BSLACTIC ACID, [id number] 17:24:00 Test Item Value Reference Range Interpretation Comments LACTATE BLOOD 1.2 mmol/L 0.5-2.2 Specimen sligh tly ARTERIAL (2) (BEAKER) hemoly zed (test code = 2874) Clinic Nurse ID - BSPOCT-GLUCOSE [id number] 17:22:00 Test Item Value Reference Range Interpretation Comments POC-GLUCOSE METER 140 mg/dL 70-110 H : TESTED A T [facility] 6720 (BEAKER) (test code = [facility], 1538) 645[address]: Clinic Nurse/Techni maurice ID = [id number] for TA MESIS, SANDRINE POCT-GLUCOSE [id number] 15:11:00 Test Item Value Reference Range Interpretation Comments POC-GLUCOSE METER 122 mg/dL 70-110 H : TESTED A T [facility] 6720 (BEAKER) (test code = [facility], 1538) 389[address]: Clinic Nurse/Techni maurice ID = [id number] for TA MESIS, SANDRINE POCT-GLUCOSE [id number] 13:22:00 Test Item Value Reference Range Interpretation Comments POC-GLUCOSE METER 116 mg/dL 70-110 H : TESTED A T [facility] 6720 (BEAKER) (test code = [facility], 1538) 890[address]: Clinic Nurse/Techni maurice ID = [id number] for TA MESIS, SANDRINE POCT-GLUCOSE [id number] 11:59:00 Test Item Value Reference Range Interpretation Comments POC-GLUCOSE METER 123 mg/dL 70-110 H : TESTED A T [facility] 6720 (BEAKER) (test code = [facility], 1538) 29629: Clinic Nurse/Techni maurice ID = [id number] for CO LIV BLACK[place]URN POCT-GLUCOSE [id number] 11:27:00 Test Item Value Reference Range Interpretation Comments POC-GLUCOSE METER 110 mg/dL 70-110 : TESTED A T [facility] 6720 (BEAKER) (test code = [facility], 1538) 4101[address]: Clinic Nurse/Techni maurice ID = [id number] for BL ACK, MARLENE BLOOD GAS, [id number] 09:14:00 Test Item Value Reference Range Interpretation Comments PH ARTERIAL (BEAKER) (test code = 7.42 7.35-7.45 383) PCO2 ARTERIAL (BEAKER) (test code 34 mmHg 35-45 L = 384) PO2 ARTERIAL (BEAKER) (test code 169 mmHg 80-90 H = 385) O2 SATURATION ARTERIAL (BEAKER) 99.2 % 96.0-97.0 H (test code = 386) HCO3 ARTERIAL (BEAKER) (test code 21 mmol/L 21-29 = 388) BASE EXCESS ARTERIAL (BEAKER) -2.5 mmol/L -2.0-3.0 L (test code = 387) PATIENT TEMPERATURE (BEAKER) 37.8 C (test code = 1818) FIO2 (BEAKER) (test code = 1819) 40.0 % LACTIC ACID, [id number] 09:04:00 Test Item Value Reference Range Interpretation Comments LACTATE BLOOD ARTERIAL (2) 2.9 mmol/L 0.5-2.2 H (BEAKER) (test code = 2874) Clinic Nurse ID - TESS FPOCT-GLUCOSE [id number] 09:03:00 Test Item Value Reference Range Interpretation Comments POC-GLUCOSE METER 147 mg/dL 70-110 H : TESTED A T [facility] 6720 (BEAKER) (test code = [facility], 1538) 985[address]: Clinic Nurse/Techni maurice ID = [id number] for BERNARD DEL CID [id number] 06:47:00 Test Item Value Reference Range Interpretation Comments ACTIVATED CLOTTING TIME 98 sec : 74 -137 seconds, (BEAKER) (test code = Baseli ne: TESTED AT 441) [address], [facility] 30: Clinic Nurse/Techni maurice ID = [id number] for Henrik Goldberg [id number] 06:47:00 Test Item Value Reference Range Interpretation Comments ACTIVATED CLOTTING TIME 411 sec : 74 -137 seconds, (BEAKER) (test code = Baseli ne: TESTED AT 441) [address], [facility] 30: Clinic Nurse/Techni maurice ID = [id number] for CA STRO, RADHA [id number] 06:46:00 Test Item Value Reference Range Interpretation Comments ACTIVATED CLOTTING TIME 428 sec : 74 -137 seconds, (BEAKER) (test code = Baseli ne: TESTED AT 441) [address], [facility] 30: Clinic Nurse/Techni maurice ID = [id number] for Jono Archer [id number] 06:46:00 Test Item Value Reference Range Interpretation Comments ACTIVATED CLOTTING TIME 373 sec : 74 -137 seconds, (BEAKER) (test code = Baseli ne: TESTED AT 441) [address], [facility] 30: Clinic Nurse/Techni maurice ID = [id number] for CA STRO, RADHA [id number] 06:46:00 Test Item Value Reference Range Interpretation Comments ACTIVATED CLOTTING TIME 499 sec : 74 -137 seconds, (BEAKER) (test code = Baseli ne: TESTED AT 441) [address], [facility] 30: Clinic Nurse/Techni maurice ID = [id number] for CA STRO, RADHA [id number] 06:46:00 Test Item Value Reference Range Interpretation Comments ACTIVATED CLOTTING TIME 147 sec : 74 -137 seconds, (BEAKER) (test code = Baseli ne: TESTED AT [facility]) [address], [facility] 30: Clinic Nurse/Techni maurice ID = [id number] for NG JENNIFER, DUNG BLOOD GAS, [id number] 06:27:00 Test Item Value Reference Range Interpretation Comments PH ARTERIAL (BEAKER) (test code = 7.39 7.35-7.45 383) PCO2 ARTERIAL (BEAKER) (test code 34 mmHg 35-45 L = 384) PO2 ARTERIAL (BEAKER) (test code 123 mmHg 80-90 H = 385) O2 SATURATION ARTERIAL (BEAKER) 98.4 % 96.0-97.0 H (test code = 386) HCO3 ARTERIAL (BEAKER) (test code 20 mmol/L 21-29 L = 388) BASE EXCESS ARTERIAL (BEAKER) -4.1 mmol/L -2.0-3.0 L (test code = 387) PATIENT TEMPERATURE (BEAKER) 37.2 C (test code = 1818) FIO2 (BEAKER) (test code = 1819) 40.0 % POCT-GLUCOSE [id number] 05:54:00 Test Item Value Reference Range Interpretation Comments POC-GLUCOSE METER 160 mg/dL 70-110 H : TESTED A T [facility] (BEAKER) (test code = [place], 1538) [address]: Clinic Nurse/Techni maurice ID = [id number] for RICARDO RODRIGUEZ BLOOD GAS, [id number] 05:07:00 Test Item Value Reference Range Interpretation Comments PH ARTERIAL (BEAKER) (test code = 7.39 7.35-7.45 383) PCO2 ARTERIAL (BEAKER) (test code 33 mmHg 35-45 L = 384) PO2 ARTERIAL (BEAKER) (test code 113 mmHg 80-90 H = 385) O2 SATURATION ARTERIAL (BEAKER) 97.9 % 96.0-97.0 H (test code = 386) HCO3 ARTERIAL (BEAKER) (test code 20 mmol/L 21-29 L = 388) BASE EXCESS ARTERIAL (BEAKER) -4.1 mmol/L -2.0-3.0 L (test code = 387) PATIENT TEMPERATURE (BEAKER) 38.2 C (test code = 1818) FIO2 (BEAKER) (test code = 1819) 40.0 % [id number] 04:13:00 Test Item Value Reference Range Interpretation Comments PHOSPHORUS (BEAKER) (test code = 4.2 mg/dL 2.3-4.7 604) Clinic Nurse ID - ROXIE [id number] 04:13:00 Test Item Value Reference Range Interpretation Comments MAGNESIUM (BEAKER) (test code = 1.9 mg/dL 1.6-2.6 627) Clinic Nurse ID Nick FAUSTIN WBASIC METABOLIC [id number] 04:13:00 Test Item Value Reference Range Interpretation Comments SODIUM (BEAKER) 137 meq/L 136-145 (test code = 381) POTASSIUM (BEAKER) 4.1 meq/L 3.5-5.1 (test code = 379) CHLORIDE (BEAKER) 110 meq/L 98-107 H (test code = 382) CO2 (BEAKER) (test 19 meq/L 22-29 L code = 355) BLOOD UREA NITROGEN 13 mg/dL 7-21 (BEAKER) (test code = 354) CREATININE (BEAKER) 0.74 mg/dL 0.57-1.25 (test code = 358) GLUCOSE RANDOM 143 mg/dL 70-105 H (BEAKER) (test code = 652) CALCIUM (BEAKER) 8.4 mg/dL 8.4-10.2 (test code = 697) EGFR (BEAKER) (test 105 mL/min/1.73 ESTIM ATED GFR IS code = 1092) sq m NOT ACCURATE CREATININE CLEARANCE IN PREDICTING GLOMERULAR FILTRATION RATE . ESTIMATED GFR I S NOT APPLICABLE FOR DIALYSIS PATIEN TS. Clinic Nurse ID Nick FAUSTIN WLACTIC ACID, [id number] 04:02:00 Test Item Value Reference Range Interpretation Comments LACTATE BLOOD 3.0 mmol/L 0.5-2.2 H Specimen sligh tly ARTERIAL (2) (BEAKER) hemoly zed (test code = 2874) Clinic Nurse ID Nick FAUSTIN WCBC (HEMOGRAM ONLY)2019-09-04 03:48:00 Test Item Value Reference Range Interpretation Comments WHITE BLOOD CELL COUNT (BEAKER) 18.9 K/ L 3.5-10.5 H (test code = 775) RED BLOOD CELL COUNT (BEAKER) 3.81 M/ L 4.63-6.08 L (test code = 761) HEMOGLOBIN (BEAKER) (test code = 11.1 GM/DL 13.7-17.5 L 410) HEMATOCRIT (BEAKER) (test code = 34.0 % 40.1-51.0 L 411) MEAN CORPUSCULAR VOLUME (BEAKER) 89.2 fL 79.0-92.2 (test code = 753) MEAN CORPUSCULAR HEMOGLOBIN 29.1 pg 25.7-32.2 (BEAKER) (test code = 751) MEAN CORPUSCULAR HEMOGLOBIN CONC 32.6 GM/DL 32.3-36.5 (BEAKER) (test code = 752) RED CELL DISTRIBUTION WIDTH 13.7 % 11.6-14.4 (BEAKER) (test code = 412) PLATELET COUNT (BEAKER) (test 207 K/CU MM 150-450 code = 756) MEAN PLATELET VOLUME (BEAKER) 10.6 fL 9.4-12.4 (test code = 754) NUCLEATED RED BLOOD CELLS 0 /100 WBC 0-0 (BEAKER) (test code = 413) OXYGEN SATURATION, [id number] 03:39:00 Test Item Value Reference Range Interpretation Comments O2 SATURATION (MEASURED) (BEAKER) 71.1 % (test code = 1455) BLOOD GAS, [id number] 03:39:00 Test Item Value Reference Range Interpretation Comments PH ARTERIAL (BEAKER) (test code = 7.39 7.35-7.45 383) PCO2 ARTERIAL (BEAKER) (test code 34 mmHg 35-45 L = 384) PO2 ARTERIAL (BEAKER) (test code 114 mmHg 80-90 H = 385) O2 SATURATION ARTERIAL (BEAKER) 97.9 % 96.0-97.0 H (test code = 386) HCO3 ARTERIAL (BEAKER) (test code 20 mmol/L 21-29 L = 388) BASE EXCESS ARTERIAL (BEAKER) -3.6 mmol/L -2.0-3.0 L (test code = 387) PATIENT TEMPERATURE (BEAKER) 38.4 C (test code = 1818) FIO2 (BEAKER) (test code = 1819) 40.0 % RAD, CHEST, 1 VIEW, NON [id number] 03:25:00Reason for exam:->s/p [id number] this be performed at the bedside?->YesFINAL REPORT RAD, CHEST, 1 VIEW, NON DEPT INDICATION: s/p CABGx3 COMPARISON: Exam from four hours prior FINDINGS: Portable frontal view of the chest. IMPRESSION: Support Lines: Stable. Lungs and pleura: Blunting of the left costophrenic angle may reflect a tiny pleural effusion. No interval consolidation. No pneumothorax.Heart and mediastinum: Stable contours. Stable surgical tejeda ges.Additional findings: None. Signed: Jossue Rodríguez Verified Date/Time: 09/04/2019 03:25:59 POCT-GLUCOSE [id number] 02:50:00 Test Item Value Reference Range Interpretation Comments POC-GLUCOSE METER 131 mg/dL 70-110 H : TESTED A T [facility] 6720 (BEAKER) (test code = [place], 1538) [address]: Clinic Nurse/Techni maurice ID = [id number] for RICARDO RODRIGUEZ PROTHROMBIN [id number] 00:47:00 Test Item Value Reference Range Interpretation Comments PROTIME (BEAKER) (test code = 16.0 seconds 11.9-14.2 H 759) INR (BEAKER) (test code = 370) 1.3 <=5.9 Effective 09/24/2018: PT Reference Range ChangeNew: 11.9-14.2 Previous: 11.7- 14.7RECOMMENDED COUMADIN/WARFARIN INR THERAPY RANGESSTANDARD DOSE: 2.0-3.0 Includes: PROPHYLAXIS for venous thrombosis, systemic embolization; TREATMENT for venous thrombosis and/or pulmonary embolus.HIGH RISK: Target INR is 2.5-3.5 for patients wiht mechanical heart valves.[id number] 00:47:00 Test Item Value Reference Range Interpretation Comments PARTIAL THROMBOPLASTIN TIME 37.9 seconds 22.5-36.0 H (BEAKER) (test code = 760) LACTIC ACID, [id number] 00:43:00 Test Item Value Reference Range Interpretation Comments LACTATE BLOOD ARTERIAL (2) 2.9 mmol/L 0.5-2.2 H (BEAKER) (test code = 2874) Clinic Nurse ID - PIAYA LBLOOD GAS, [id number] 00:36:00 Test Item Value Reference Range Interpretation Comments PH ARTERIAL (BEAKER) (test code = 7.41 7.35-7.45 383) PCO2 ARTERIAL (BEAKER) (test code 35 mmHg 35-45 = 384) PO2 ARTERIAL (BEAKER) (test code 119 mmHg 80-90 H = 385) O2 SATURATION ARTERIAL (BEAKER) 98.1 % 96.0-97.0 H (test code = 386) HCO3 ARTERIAL (BEAKER) (test code 21 mmol/L 21-29 = 388) BASE EXCESS ARTERIAL (BEAKER) -2.2 mmol/L -2.0-3.0 L (test code = 387) PATIENT TEMPERATURE (BEAKER) 39.0 C (test code = 1818) FIO2 (BEAKER) (test code = 1819) 40.0 % CBC (HEMOGRAM ONLY)2019-09-04 00:33:00 Test Item Value Reference Range Interpretation Comments WHITE BLOOD CELL COUNT (BEAKER) 18.9 K/ L 3.5-10.5 H (test code = 775) RED BLOOD CELL COUNT (BEAKER) 4.12 M/ L 4.63-6.08 L (test code = 761) HEMOGLOBIN (BEAKER) (test code = 12.1 GM/DL 13.7-17.5 L 410) HEMATOCRIT (BEAKER) (test code = 36.5 % 40.1-51.0 L 411) MEAN CORPUSCULAR VOLUME (BEAKER) 88.6 fL 79.0-92.2 (test code = 753) MEAN CORPUSCULAR HEMOGLOBIN 29.4 pg 25.7-32.2 (BEAKER) (test code = 751) MEAN CORPUSCULAR HEMOGLOBIN CONC 33.2 GM/DL 32.3-36.5 (BEAKER) (test code = 752) RED CELL DISTRIBUTION WIDTH 13.8 % 11.6-14.4 (BEAKER) (test code = 412) PLATELET COUNT (BEAKER) (test 220 K/CU MM 150-450 code = 756) MEAN PLATELET VOLUME (BEAKER) 10.5 fL 9.4-12.4 (test code = 754) NUCLEATED RED BLOOD CELLS 0 /100 WBC 0-0 (BEAKER) (test code = 413) [id number] 23:43:00 Test Item Value Reference Range Interpretation Comments POTASSIUM (BEAKER) (test code = 4.4 meq/L 3.5-5.1 379) Clinic Nurse ID Nick KLINE [id number] 23:43:00 Test Item Value Reference Range Interpretation Comments MAGNESIUM (BEAKER) (test code = 2.1 mg/dL 1.6-2.6 627) Clinic Nurse ID - PIAYA LPOCT-GLUCOSE [id number] 23:11:00 Test Item Value Reference Range Interpretation Comments POC-GLUCOSE METER 163 mg/dL 70-110 H : TESTED A T [facility] 6720 (BEAKER) (test code = [facility], 1538) 65046: Clinic Nurse/Techni maurice ID = [id number] for GA VENEGAS POCT-GLUCOSE [id number] 23:10:00 Test Item Value Reference Range Interpretation Comments POC-GLUCOSE METER 154 mg/dL 70-110 H : TESTED A T [facility] 6720 (BEAKER) (test code = [facility], 1538) 40070: Clinic Nurse/Techni maurice ID = [id number] for GA VENEGAS BLOOD GAS, [id number] 23:06:00 Test Item Value Reference Range Interpretation Comments PH ARTERIAL (BEAKER) (test code = 7.39 7.35-7.45 383) PCO2 ARTERIAL (BEAKER) (test code 36 mmHg 35-45 = 384) PO2 ARTERIAL (BEAKER) (test code 105 mmHg 80-90 H = 385) O2 SATURATION ARTERIAL (BEAKER) 97.4 % 96.0-97.0 H (test code = 386) HCO3 ARTERIAL (BEAKER) (test code 21 mmol/L 21-29 = 388) BASE EXCESS ARTERIAL (BEAKER) -2.6 mmol/L -2.0-3.0 L (test code = 387) PATIENT TEMPERATURE (BEAKER) 38.9 C (test code = 1818) FIO2 (BEAKER) (test code = 1819) 40.0 % CALCIUM, [id number] 23:06:00 Test Item Value Reference Range Interpretation Comments CALCIUM IONIZED (BEAKER) (test 1.08 mmol/L 1.12-1.27 L code = 698) PH, BLOOD (BEAKER) (test code = 7.42 1810) LACTIC ACID, [id number] 22:47:00 Test Item Value Reference Range Interpretation Comments LACTATE BLOOD ARTERIAL (2) 3.0 mmol/L 0.5-2.2 H (BEAKER) (test code = 2874) Clinic Nurse ID - DBPOCT-GLUCOSE [id number] 22:30:00 Test Item Value Reference Range Interpretation Comments POC-GLUCOSE METER 155 mg/dL 70-110 H : [facility] (BEAKER) (test code = [place], 1538) [address]: Clinic Nurse/Techni maurice ID = [id number] for GA VENEGAS HEPATIC FUNCTION [id number] 21:44:00 Test Item Value Reference Range Interpretation Comments TOTAL PROTEIN (BEAKER) 5.7 gm/dL 6.0-8.3 L Speci men slightly (test code = 770) hemolyzed ALBUMIN (BEAKER) (test 3.1 g/dL 3.5-5.0 L Speci men slightly code = 1145) hemolyzed BILIRUBIN TOTAL 1.4 mg/dL 0.2-1.2 H Specimen sli ghtly (BEAKER) (test code = hemoly zed 377) BILIRUBIN DIRECT 0.7 mg/dL 0.1-0.5 H Specimen sl ightly (BEAKER) (test code = hemoly zed 706) ALKALINE PHOSPHATASE 37 U/L 40-150 L (BEAKER) (test code = 346) AST (SGOT) (BEAKER) 51 U/L 5-34 H Specimen slightly (test code = 353) hemolyzed ALT (SGPT) (BEAKER) 26 U/L 6-55 Specimen slightly (test code = 347) hemolyzed Clinic Nurse ID - DBRAD, CHEST, 1 VIEW, NON [id number] 21:24:00Reason for exam:- >s/p PA catheter manipulationShould this be performed at the bedside?->Yes FINAL REPORT RAD, CHEST, 1 VIEW, NON DEPT INDICATION: s/p PA catheter manipulation COMPARISON: Exam from five hours prior FINDINGS: Portable frontal view of the chest. IMPRESSION: Support Lines: The pulmonary arterial catheter is been slightly retracted with the tip now overlying the main pulmonary outflow tract. Otherwise, stable support apparatus. Lungs and pleura: Unchanged venous congestion and hypoinflated lungs. No new airspace consolidation or sizable effusion. No pneumothorax.Heart and mediastinum: Stable contours. Stable surgical changes.Additional findings: None. Signed: Jossue Rodríguez MDReport Verified Date/Time: 09/03/2019 21:24:45 LACTIC ACID, [id number] 21:01:00 Test Item Value Reference Range Interpretation Comments LACTATE BLOOD ARTERIAL (2) 4.3 mmol/L 0.5-2.2 HH (BEAKER) (test code = 2874) Clinic Nurse ID - DBOXYGEN SATURATION, [id number] 20:39:00 Test Item Value Reference Range Interpretation Comments O2 SATURATION (MEASURED) (BEAKER) 55.6 % (test code = 1455) POCT-GLUCOSE [id number] 19:39:00 Test Item Value Reference Range Interpretation Comments POC-GLUCOSE METER 146 mg/dL 70-110 H : TESTED A T [facility] 6720 (BEAKER) (test code = [place], 1538) [address]: Clinic Nurse/Techni maurice ID = [id number] for GA VENEGAS GLUCOSE-STAT [id number] 19:30:00 Test Item Value Reference Range Interpretation Comments GLUCOSE RANDOM (BEAKER) (test code 136 mg/dL 70-110 H = 652) HGB/HCT (H&H) - STAT [id number] 19:30:00 Test Item Value Reference Range Interpretation Comments HEMOGLOBIN (BEAKER) (test code = 13.2 g/dL 13.0-16.8 410) HEMATOCRIT (BEAKER) (test code = 39.0 % 40.0-50.0 L 411) BLOOD GAS, [id number] 19:30:00 Test Item Value Reference Range Interpretation Comments PH ARTERIAL (BEAKER) (test code = 7.39 7.35-7.45 383) PCO2 ARTERIAL (BEAKER) (test code 36 mmHg 35-45 = 384) PO2 ARTERIAL (BEAKER) (test code 111 mmHg 80-90 H = 385) O2 SATURATION ARTERIAL (BEAKER) 98.1 % 96.0-97.0 H (test code = 386) HCO3 ARTERIAL (BEAKER) (test code 21 mmol/L 21-29 = 388) BASE EXCESS ARTERIAL (BEAKER) -3.3 mmol/L -2.0-3.0 L (test code = 387) PATIENT TEMPERATURE (BEAKER) 36.9 C (test code = 1818) FIO2 (BEAKER) (test code = 1819) 50.0 % SODIUM NA-STAT [id number] 19:29:00 Test Item Value Reference Range Interpretation Comments SODIUM (BEAKER) (test code = 381) 135 meq/L 136-145 L POTASSIUM-STAT [id number] 19:29:00 Test Item Value Reference Range Interpretation Comments POTASSIUM (BEAKER) (test code = 4.1 meq/L 3.6-5.5 379) POCT-GLUCOSE [id number] 18:34:00 Test Item Value Reference Range Interpretation Comments POC-GLUCOSE METER 144 mg/dL 70-110 H : TESTED A T [facility] 6720 (BEAKER) (test code = N[place], 1538) [address]: Clinic Nurse/Techni maurice ID = [id number] for GA VENEGAS LACTIC ACID, [id number] 18:09:00 Test Item Value Reference Range Interpretation Comments LACTATE BLOOD 5.3 mmol/L 0.5-2.2 HH Specimen sligh tly ARTERIAL (2) (BEAKER) hemoly zed (test code = 2874) Clinic Nurse ID - DB(CELLAVISION MANUAL DIFF)2019-09-03 18:08:00 Test Item Value Reference Range Interpretation Comments NEUTROPHILS - REL 80 % (CELLAVISION)(BEAKER) (test code = 2816) LYMPHOCYTES - REL 6 % (CELLAVISION)(BEAKER) (test code = 2817) MONOCYTES - REL 1 % (CELLAVISION)(BEAKER) (test code = 2818) EOSINOPHILS - REL 1 % (CELLAVISION)(BEAKER) (test code = 2819) BANDS - REL (CELLAVISION)(BEAKER) 12 % 0-10 H (test code = 2826) NEUTROPHILS - ABS 20.00 K/ul 1.78-5.38 H (CELLAVISION)(BEAKER) (test code = 2830) LYMPHOCYTES - ABS 1.50 K/ul 1.32-3.57 (CELLAVISION)(BEAKER) (test code = 2831) MONOCYTES - ABS 0.25 K/uL 0.30-0.82 L (CELLAVISION)(BEAKER) (test code = 2832) EOSINOPHILS - ABS 0.25 K/uL 0.04-0.54 (CELLAVISION)(BEAKER) (test code = 2834) BANDS - ABS (CELLAVISION)(BEAKER) 3.00 K/uL 0.00-0.80 H (test code = 2840) TOTAL COUNTED (BEAKER) (test code 100 = 1351) PLT MORPHOLOGY (BEAKER) (test Normal code = 486) VACUOLATED NEUTROPHILS (BEAKER) Present (test code = 483) ANISOCYTOSIS (BEAKER) (test code 2+ moderate = 961) MICROCYTES (BEAKER) (test code = 2+ moderate 965) ARTIFACT (CELLAVISION)(BEAKER) Present (test code = 3432) PLATELET CONCENTRATION Adequate (CELLAVISION)(BEAKER) (test code = 3438) Clinic Nurse ID - Landscape Account Manager (created by the system)User comments: Slide comments:[id number] 18:02:00 Test Item Value Reference Range Interpretation Comments PHOSPHORUS (BEAKER) 4.4 mg/dL 2.3-4.7 Specimen slightly (test code = 604) hemolyzed Clinic Nurse ID - [id number] 18:02:00 Test Item Value Reference Range Interpretation Comments POTASSIUM (BEAKER) 4.2 meq/L 3.5-5.1 Specimen slightly (test code = 379) hemolyzed Clinic Nurse ID - [id number] 18:02:00 Test Item Value Reference Range Interpretation Comments GLUCOSE RANDOM (BEAKER) (test code 150 mg/dL 70-105 H = 652) Clinic Nurse ID - DBPOCT-GLUCOSE [id number] 17:18:00 Test Item Value Reference Range Interpretation Comments POC-GLUCOSE METER 150 mg/dL 70-110 H : TESTED A T [facility] 6720 (BEAKER) (test code = EZAVIS We[place] [facility], 1538) [address]: Clinic Nurse/Techni maurice ID = [id number] for GA VENEGAS BLOOD GAS, [id number] 16:54:00 Test Item Value Reference Range Interpretation Comments PH ARTERIAL (BEAKER) (test code = 7.38 7.35-7.45 383) PCO2 ARTERIAL (BEAKER) (test code 38 mmHg 35-45 = 384) PO2 ARTERIAL (BEAKER) (test code 72 mmHg 80-90 L = 385) O2 SATURATION ARTERIAL (BEAKER) 95.3 % 96.0-97.0 L (test code = 386) HCO3 ARTERIAL (BEAKER) (test code 22 mmol/L 21-29 = 388) BASE EXCESS ARTERIAL (BEAKER) -3.1 mmol/L -2.0-3.0 L (test code = 387) PATIENT TEMPERATURE (BEAKER) 35.5 C (test code = 1818) FIO2 (BEAKER) (test code = 1819) 50.0 % OXYGEN SATURATION, [id number] 16:53:00 Test Item Value Reference Range Interpretation Comments O2 SATURATION (MEASURED) (BEAKER) 71.5 % (test code = 1455) [id number] 16:51:00 Test Item Value Reference Range Interpretation Comments MAGNESIUM (BEAKER) 1.9 mg/dL 1.6-2.6 Specimen slightly (test code = 627) hemolyzed Clinic Nurse ID - [id number] 16:51:00 Test Item Value Reference Range Interpretation Comments PHOSPHORUS (BEAKER) 4.3 mg/dL 2.3-4.7 Specimen slightly (test code = 604) hemolyzed Clinic Nurse ID - DBBASIC METABOLIC [id number] 16:51:00 Test Item Value Reference Range Interpretation Comments SODIUM (BEAKER) 137 meq/L 136-145 (test code = 381) POTASSIUM (BEAKER) 3.5 meq/L 3.5-5.1 Specimen slightly (test code = 379) hemolyzed CHLORIDE (BEAKER) 106 meq/L 98-107 (test code = 382) CO2 (BEAKER) (test 24 meq/L 22-29 code = 355) BLOOD UREA NITROGEN 14 mg/dL 7-21 (BEAKER) (test code = 354) CREATININE (BEAKER) 0.85 mg/dL 0.57-1.25 Specimen slightly (test code = 358) hemolyzed GLUCOSE RANDOM 193 mg/dL 70-105 H (BEAKER) (test code = 652) CALCIUM (BEAKER) 9.2 mg/dL 8.4-10.2 (test code = 697) EGFR (BEAKER) (test 89 mL/min/1.73 ESTIMA AILIN GFR IS code = 1092) sq m NOT ACCURATE CREATININE CLEARANCE IN PREDICTING GLOMERULAR FILTRATION RATE . ESTIMATED GFR I S NOT APPLICABLE FOR DIALYSIS PATIEN TS. Clinic Nurse ID - [id number] 16:47:00 Test Item Value Reference Range Interpretation Comments FIBRINOGEN LEVEL (BEAKER) (test 424 mg/dl 225-434 code = 658) [id number] 16:47:00 Test Item Value Reference Range Interpretation Comments PROTIME (BEAKER) (test code = 17.8 seconds 11.9-14.2 H 759) INR (BEAKER) (test code = 370) 1.5 <=5.9 PARTIAL THROMBOPLASTIN TIME 32.1 seconds 22.5-36.0 (BEAKER) (test code = 760) Effective 09/24/2018: PT Reference Range ChangeNew: 11.9-14.2 Previous: 11.7- 14.7RECOMMENDED COUMADIN/WARFARIN INR THERAPY RANGESSTANDARD DOSE: 2.0-3.0 Includes: PROPHYLAXIS for venous thrombosis, systemic embolization; TREATMENT for venous thrombosis and/or pulmonary embolus.HIGH RISK: Target INR is 2.5-3.5 for patients wiht mechanical heart valves.PROTHROMBIN TIME/[id number] 16:46:00 Test Item Value Reference Range Interpretation Comments PROTIME (BEAKER) (test code = 17.8 seconds 11.9-14.2 H 759) INR (BEAKER) (test code = 370) 1.5 <=5.9 Effective 09/24/2018: PT Reference Range ChangeNew: 11.9-14.2 Previous: 11.7- 14.7RECOMMENDED COUMADIN/WARFARIN INR THERAPY RANGESSTANDARD DOSE: 2.0-3.0 Includes: PROPHYLAXIS for venous thrombosis, systemic embolization; TREATMENT for venous thrombosis and/or pulmonary embolus.HIGH RISK: Target INR is 2.5-3.5 for patients wiht mechanical heart valves.LACTIC ACID, [id number] 16:41:00 Test Item Value Reference Range Interpretation Comments LACTATE BLOOD 3.1 mmol/L 0.5-2.2 H Specimen sligh tly ARTERIAL (2) (BEAKER) hemoly zed (test code = 2874) Clinic Nurse ID - DBCBC W/PLT COUNT & AUTO [id number] 16:39:00 Test Item Value Reference Range Interpretation Comments WHITE BLOOD CELL COUNT (BEAKER) 25.0 K/ L 3.5-10.5 H (test code = 775) RED BLOOD CELL COUNT (BEAKER) 4.15 M/ L 4.63-6.08 L (test code = 761) HEMOGLOBIN (BEAKER) (test code = 12.4 GM/DL 13.7-17.5 L 410) HEMATOCRIT (BEAKER) (test code = 37.7 % 40.1-51.0 L 411) MEAN CORPUSCULAR VOLUME (BEAKER) 90.8 fL 79.0-92.2 (test code = 753) MEAN CORPUSCULAR HEMOGLOBIN 29.9 pg 25.7-32.2 (BEAKER) (test code = 751) MEAN CORPUSCULAR HEMOGLOBIN CONC 32.9 GM/DL 32.3-36.5 (BEAKER) (test code = 752) RED CELL DISTRIBUTION WIDTH 13.8 % 11.6-14.4 (BEAKER) (test code = 412) PLATELET COUNT (BEAKER) (test 168 K/CU MM 150-450 code = 756) MEAN PLATELET VOLUME (BEAKER) 10.5 fL 9.4-12.4 (test code = 754) NUCLEATED RED BLOOD CELLS 0 /100 WBC 0-0 (BEAKER) (test code = 413) NEUTROPHILS RELATIVE PERCENT 85 % (BEAKER) (test code = 429) LYMPHOCYTES RELATIVE PERCENT 7 % (BEAKER) (test code = 430) MONOCYTES RELATIVE PERCENT 6 % (BEAKER) (test code = 431) EOSINOPHILS RELATIVE PERCENT 1 % (BEAKER) (test code = 432) BASOPHILS RELATIVE PERCENT 0 % (BEAKER) (test code = 437) NEUTROPHILS ABSOLUTE COUNT 21.12 K/ L 1.78-5.38 H (BEAKER) (test code = 670) LYMPHOCYTES ABSOLUTE COUNT 1.80 K/ L 1.32-3.57 (BEAKER) (test code = 414) MONOCYTES ABSOLUTE COUNT (BEAKER) 1.49 K/ L 0.30-0.82 H (test code = 415) EOSINOPHILS ABSOLUTE COUNT 0.19 K/ L 0.04-0.54 (BEAKER) (test code = 416) BASOPHILS ABSOLUTE COUNT (BEAKER) 0.05 K/ L 0.01-0.08 (test code = 417) IMMATURE GRANULOCYTES-RELATIVE 1 % 0-1 PERCENT (BEAKER) (test code = 2801) PLATELET AGGREGATION: FUNCTION [id number] 16:31:00 Test Item Value Reference Range Interpretation Comments [id number] Yue Kenney MD (BEAKER) (test code = (electronic 2622) signature) PLATELET COUNT AGG 306 K/CU MM 150-450 (BEAKER) (test code = 2656) PLATELET RICH 263 k/cu mm 200-300 PLASMA(BEAKER) (test code = 2134) PLATELET FUNCTION SCREEN Decreased aggregation INTERPRETATION (BEAKER) with ADP which (test code = 4655) indicates platelet dysfunction that may be due to medication effect, uremia, or other platelet function disorders. Clinical correlation is required. ADP (BEAKER) (test code 48 % 62-100 L = 4654) Platelet Function Screen results may be falsely low with platelet counts<75,000/cu mm.Clinic Nurse ID- [id number], [id number] 16:10:00 Test Item Value Reference Range Interpretation Comments CALCIUM IONIZED (BEAKER) (test 1.19 mmol/L 1.12-1.27 code = 698) PH, BLOOD (BEAKER) (test code = 7.31 1810) RAD, CHEST, 1 VIEW, NON [id number] 16:09:00Reason for exam:->intubation, s/p ACB [id number] this be performed at the bedside?->YesFINAL REPORT EXAM: Chest one view COMPARISON: September 01, 2019 CLINICAL HISTORY: Sonja nary artery disease FINDINGS: The endotracheal tube overlies the trachea with its tip approximately 1 cm above the basilia. The tip of the [place] catheter overlies the right main pulmonary artery. Left-sided chest tube and mediastinal tubes are also noted. The tip of the nasogastric tube overlies the gastric body. There is no evidence of pneumothorax. The cardiac size is within normal limits. The regional osseous structures are unremarkable. Post median sternotomy changes noted. Signed: Kade Rosenthal MDReport Verified Date/Time: 09/03/2019 16:09:44 Reading Location: [facility] Radiology Reading Room BLOOD GAS, [id number] 16:08:00 Test Item Value Reference Range Interpretation Comments PH ARTERIAL (BEAKER) (test code = 7.33 7.35-7.45 L 383) PCO2 ARTERIAL (BEAKER) (test code 46 mmHg 35-45 H = 384) PO2 ARTERIAL (BEAKER) (test code 77 mmHg 80-90 L = 385) O2 SATURATION ARTERIAL (BEAKER) 95.4 % 96.0-97.0 L (test code = 386) HCO3 ARTERIAL (BEAKER) (test code 24 mmol/L 21-29 = 388) BASE EXCESS ARTERIAL (BEAKER) -2.2 mmol/L -2.0-3.0 L (test code = 387) PATIENT TEMPERATURE (BEAKER) 35.6 C (test code = 1818) FIO2 (BEAKER) (test code = 1819) 60.0 % SODIUM NA-STAT [id number] 16:08:00 Test Item Value Reference Range Interpretation Comments SODIUM (BEAKER) (test code = 381) 134 meq/L 136-145 L GLUCOSE-STAT [id number] 16:08:00 Test Item Value Reference Range Interpretation Comments GLUCOSE RANDOM (BEAKER) (test code 186 mg/dL 70-110 H = 652) HGB/HCT (H&H) - STAT [id number] 16:08:00 Test Item Value Reference Range Interpretation Comments HEMOGLOBIN (BEAKER) (test code = 12.9 g/dL 13.0-16.8 L 410) HEMATOCRIT (BEAKER) (test code = 38.0 % 40.0-50.0 L 411) POTASSIUM-STAT [id number] 16:07:00 Test Item Value Reference Range Interpretation Comments POTASSIUM (BEAKER) (test code = 3.5 meq/L 3.6-5.5 L 379) BLOOD GAS, [id number] 14:45:00 Test Item Value Reference Range Interpretation Comments PH ARTERIAL (BEAKER) (test code = 7.32 7.35-7.45 L 383) PCO2 ARTERIAL (BEAKER) (test code 45 mmHg 35-45 = 384) PO2 ARTERIAL (BEAKER) (test code 201 mmHg 80-90 H = 385) O2 SATURATION ARTERIAL (BEAKER) 99.3 % 96.0-97.0 H (test code = 386) HCO3 ARTERIAL (BEAKER) (test code 23 mmol/L 21-29 = 388) BASE EXCESS ARTERIAL (BEAKER) -3.5 mmol/L -2.0-3.0 L (test code = 387) PATIENT TEMPERATURE (BEAKER) 35.6 C (test code = 1818) FIO2 (BEAKER) (test code = 1819) 100.0 % CALCIUM, [id number] 14:45:00 Test Item Value Reference Range Interpretation Comments CALCIUM IONIZED (BEAKER) (test 1.34 mmol/L 1.12-1.27 H code = 698) PH, BLOOD (BEAKER) (test code = 7.30 1810) SODIUM NA-STAT [id number] 14:45:00 Test Item Value Reference Range Interpretation Comments SODIUM (BEAKER) (test code = 381) 132 meq/L 136-145 L GLUCOSE-STAT [id number] 14:45:00 Test Item Value Reference Range Interpretation Comments GLUCOSE RANDOM (BEAKER) (test code 245 mg/dL 70-110 H = 652) HGB/HCT (H&H) - STAT [id number] 14:45:00 Test Item Value Reference Range Interpretation Comments HEMOGLOBIN (BEAKER) (test code = 10.2 g/dL 13.0-16.8 L 410) HEMATOCRIT (BEAKER) (test code = 30.0 % 40.0-50.0 L 411) POTASSIUM-STAT [id number] 14:44:00 Test Item Value Reference Range Interpretation Comments POTASSIUM (BEAKER) (test code = 4.2 meq/L 3.6-5.5 379) BLOOD GAS, [id number] 13:46:00 Test Item Value Reference Range Interpretation Comments PH ARTERIAL (BEAKER) (test code = 7.35 7.35-7.45 383) PCO2 ARTERIAL (BEAKER) (test code 37 mmHg 35-45 = 384) PO2 ARTERIAL (BEAKER) (test code 300 mmHg 80-90 H = 385) O2 SATURATION ARTERIAL (BEAKER) 99.7 % 96.0-97.0 H (test code = 386) HCO3 ARTERIAL (BEAKER) (test code 22 mmol/L 21-29 = 388) BASE EXCESS ARTERIAL (BEAKER) -5.1 mmol/L -2.0-3.0 L (test code = 387) PATIENT TEMPERATURE (BEAKER) 31.5 C (test code = 1818) FIO2 (BEAKER) (test code = 1819) 80.0 % SODIUM NA-STAT [id number] 13:46:00 Test Item Value Reference Range Interpretation Comments SODIUM (BEAKER) (test code = 381) 129 meq/L 136-145 L GLUCOSE-STAT [id number] 13:46:00 Test Item Value Reference Range Interpretation Comments GLUCOSE RANDOM (BEAKER) (test code 253 mg/dL 70-110 H = 652) HGB/HCT (H&H) - STAT [id number] 13:46:00 Test Item Value Reference Range Interpretation Comments HEMOGLOBIN (BEAKER) (test code = 10.0 g/dL 13.0-16.8 L 410) HEMATOCRIT (BEAKER) (test code = 29.0 % 40.0-50.0 L 411) POTASSIUM-STAT [id number] 13:45:00 Test Item Value Reference Range Interpretation Comments POTASSIUM (BEAKER) (test code = 4.8 meq/L 3.6-5.5 379) POTASSIUM-STAT [id number] 13:11:00 Test Item Value Reference Range Interpretation Comments POTASSIUM (BEAKER) (test code = 4.5 meq/L 3.6-5.5 379) BLOOD GAS, [id number] 13:11:00 Test Item Value Reference Range Interpretation Comments PH ARTERIAL (BEAKER) (test code = 7.36 7.35-7.45 383) PCO2 ARTERIAL (BEAKER) (test code 40 mmHg 35-45 = 384) PO2 ARTERIAL (BEAKER) (test code 359 mmHg 80-90 H = 385) O2 SATURATION ARTERIAL (BEAKER) 99.8 % 96.0-97.0 H (test code = 386) HCO3 ARTERIAL (BEAKER) (test code 23 mmol/L 21-29 = 388) BASE EXCESS ARTERIAL (BEAKER) -3.3 mmol/L -2.0-3.0 L (test code = 387) PATIENT TEMPERATURE (BEAKER) 31.8 C (test code = 1818) FIO2 (BEAKER) (test code = 1819) 80.0 % SODIUM NA-STAT [id number] 13:11:00 Test Item Value Reference Range Interpretation Comments SODIUM (BEAKER) (test code = 381) 128 meq/L 136-145 L GLUCOSE-STAT [id number] 13:11:00 Test Item Value Reference Range Interpretation Comments GLUCOSE RANDOM (BEAKER) (test code 228 mg/dL 70-110 H = 652) HGB/HCT (H&H) - STAT [id number] 13:11:00 Test Item Value Reference Range Interpretation Comments HEMOGLOBIN (BEAKER) (test code = 10.7 g/dL 13.0-16.8 L 410) HEMATOCRIT (BEAKER) (test code = 31.0 % 40.0-50.0 L 411) OXYGEN SATURATION, [id number] 11:50:00 Test Item Value Reference Range Interpretation Comments O2 SATURATION (MEASURED) (BEAKER) 71.1 % (test code = 1455) POTASSIUM-STAT [id number] 10:04:00 Test Item Value Reference Range Interpretation Comments POTASSIUM (BEAKER) (test code = 3.9 meq/L 3.6-5.5 379) HGB/HCT (H&H) - STAT [id number] 10:04:00 Test Item Value Reference Range Interpretation Comments HEMOGLOBIN (BEAKER) (test code = 15.2 g/dL 13.0-16.8 410) HEMATOCRIT (BEAKER) (test code = 45.0 % 40.0-50.0 411) BLOOD GAS, [id number] 10:04:00 Test Item Value Reference Range Interpretation Comments PH ARTERIAL (BEAKER) (test code = 7.44 7.35-7.45 383) PCO2 ARTERIAL (BEAKER) (test code 34 mmHg 35-45 L = 384) PO2 ARTERIAL (BEAKER) (test code 68 mmHg 80-90 L = 385) O2 SATURATION ARTERIAL (BEAKER) 95.2 % 96.0-97.0 L (test code = 386) HCO3 ARTERIAL (BEAKER) (test code 23 mmol/L 21-29 = 388) BASE EXCESS ARTERIAL (BEAKER) -1.2 mmol/L -2.0-3.0 (test code = 387) PATIENT TEMPERATURE (BEAKER) 36.0 C (test code = 1818) FIO2 (BEAKER) (test code = 1819) 21.0 % SODIUM NA-STAT [id number] 10:04:00 Test Item Value Reference Range Interpretation Comments SODIUM (BEAKER) (test code = 381) 134 meq/L 136-145 L GLUCOSE-STAT [id number] 10:04:00 Test Item Value Reference Range Interpretation Comments GLUCOSE RANDOM (BEAKER) (test code 122 mg/dL 70-110 H = 652) HEMOGLOBIN [id number] 09:32:00 Test Item Value Reference Range Interpretation Comments HEMOGLOBIN A1C (BEAKER) (test code = 6.3 % 4.3-6.1 H 368) POCT-GLUCOSE [id number] 07:54:00 Test Item Value Reference Range Interpretation Comments POC-GLUCOSE METER 156 mg/dL 70-110 H : TESTED A T [facility] 6720 (BEAKER) (test code = [place], 1538) [address]: Clinic Nurse/Techni maurice ID = [id number] for BE LL, BEAULA [id number] 06:08:00 Test Item Value Reference Range Interpretation Comments MAGNESIUM (BEAKER) 1.9 mg/dL 1.6-2.6 Specimen slightly (test code = 627) hemolyzed Clinic Nurse ID - ANCELMO MLIPID [id number] 06:08:00 Test Item Value Reference Range Interpretation Comments TRIGLYCERIDES (BEAKER) 128 mg/dL Speci men slightly (test code = 540) hemolyzed CHOLESTEROL (BEAKER) 141 mg/dL Specime n slightly (test code = 631) hemolyzed HDL CHOLESTEROL (BEAKER) 38 mg/dL (test code = 976) LDL CHOLESTEROL 77 mg/dL CALCULATED (BEAKER) (test code = 633) Triglyceride Reference Range: Low Risk <150 Borderline 150-199 High Risk 200- 499 Very High Risk >=500Cholesterol Reference Range: Low Risk <200 Borderline 200-239 High Risk >240HDL Cholesterol Reference Range: Low Risk >=60 High Risk <40LDL Cholesterol Reference Range: Optimal <100 Near Optimal 100-129 Borderline 130-159 High 160-189 Very High >=190 Clinic Nurse ID - ANCELMO MCOMPREHENSIVE METABOLIC [id number] 06:08:00 Test Item Value Reference Range Interpretation Comments TOTAL PROTEIN 7.3 gm/dL 6.0-8.3 Specimen sligh tly (BEAKER) (test code = hemoly zed 770) ALBUMIN (BEAKER) 3.6 g/dL 3.5-5.0 Specimen sl ightly (test code = 1145) hemolyzed ALKALINE PHOSPHATASE 46 U/L 40-150 (BEAKER) (test code = 346) BILIRUBIN TOTAL 1.2 mg/dL 0.2-1.2 Specimen sli ghtly (BEAKER) (test code = hemoly zed 377) SODIUM (BEAKER) (test 134 meq/L 136-145 L code = 381) POTASSIUM (BEAKER) 4.1 meq/L 3.5-5.1 Specimen slightly (test code = 379) hemolyzed CHLORIDE (BEAKER) 102 meq/L 98-107 (test code = 382) CO2 (BEAKER) (test 23 meq/L 22-29 code = 355) BLOOD UREA NITROGEN 13 mg/dL 7-21 (BEAKER) (test code = 354) CREATININE (BEAKER) 0.89 mg/dL 0.57-1.25 Specimen slightly (test code = 358) hemolyzed GLUCOSE RANDOM 165 mg/dL 70-105 H (BEAKER) (test code = 652) CALCIUM (BEAKER) 8.7 mg/dL 8.4-10.2 (test code = 697) AST (SGOT) (BEAKER) 45 U/L 5-34 H Specimen slightly (test code = 353) hemolyzed ALT (SGPT) (BEAKER) 33 U/L 6-55 Specimen slightly (test code = 347) hemolyzed EGFR (BEAKER) (test 85 mL/min/1.73 ESTIMA AILIN GFR IS code = 1092) sq m NOT ACCURATE CREATININE CLEARANCE IN PREDICTING GLOMERULAR FILTRATION RATE . ESTIMATED GFR I S NOT APPLICABLE FOR DIALYSIS PATIEN TS. Clinic Nurse ID - ANCELMO EPATIC FUNCTION [id number] 06:08:00 Test Item Value Reference Range Interpretation Comments TOTAL PROTEIN (BEAKER) 7.3 gm/dL 6.0-8.3 Speci men slightly (test code = 770) hemolyzed ALBUMIN (BEAKER) (test 3.6 g/dL 3.5-5.0 Speci men slightly code = 1145) hemolyzed BILIRUBIN TOTAL 1.2 mg/dL 0.2-1.2 Specimen sli ghtly (BEAKER) (test code = hemoly zed 377) BILIRUBIN DIRECT 0.4 mg/dL 0.1-0.5 Specimen sl ightly (BEAKER) (test code = hemoly zed 706) ALKALINE PHOSPHATASE 46 U/L 40-150 (BEAKER) (test code = 346) AST (SGOT) (BEAKER) 45 U/L 5-34 H Specimen slightly (test code = 353) hemolyzed ALT (SGPT) (BEAKER) 33 U/L 6-55 Specimen slightly (test code = 347) hemolyzed Clinic Nurse ID - ANCELMO [id number] 06:08:00 Test Item Value Reference Range Interpretation Comments LIPASE (BEAKER) (test code = 749) 72 U/L 8-78 Clinic Nurse ID - ANCELMO [id number] 03:24:00 Test Item Value Reference Range Interpretation Comments PARTIAL THROMBOPLASTIN TIME 73.8 seconds 22.5-36.0 H (BEAKER) (test code = 760) PROTHROMBIN TIME/[id number] 03:23:00 Test Item Value Reference Range Interpretation Comments PROTIME (BEAKER) (test code = 14.7 seconds 11.9-14.2 H 759) INR (BEAKER) (test code = 370) 1.2 <=5.9 Effective 09/24/2018: PT Reference Range ChangeNew: 11.9-14.2 Previous: 11.7- 14.7RECOMMENDED COUMADIN/WARFARIN INR THERAPY RANGESSTANDARD DOSE: 2.0-3.0 Includes: PROPHYLAXIS for venous thrombosis, systemic embolization; TREATMENT for venous thrombosis and/or pulmonary embolus.HIGH RISK: Target INR is 2.5-3.5 for patients wiht mechanical heart valves.CBC W/PLT COUNT & AUTO [id number] 03:18:00 Test Item Value Reference Range Interpretation Comments WHITE BLOOD CELL COUNT (BEAKER) 11.7 K/ L 3.5-10.5 H (test code = 775) RED BLOOD CELL COUNT (BEAKER) 5.03 M/ L 4.63-6.08 (test code = 761) HEMOGLOBIN (BEAKER) (test code = 14.3 GM/DL 13.7-17.5 410) HEMATOCRIT (BEAKER) (test code = 43.9 % 40.1-51.0 411) MEAN CORPUSCULAR VOLUME (BEAKER) 87.3 fL 79.0-92.2 (test code = 753) MEAN CORPUSCULAR HEMOGLOBIN 28.4 pg 25.7-32.2 (BEAKER) (test code = 751) MEAN CORPUSCULAR HEMOGLOBIN CONC 32.6 GM/DL 32.3-36.5 (BEAKER) (test code = 752) RED CELL DISTRIBUTION WIDTH 13.8 % 11.6-14.4 (BEAKER) (test code = 412) PLATELET COUNT (BEAKER) (test 314 K/CU MM 150-450 code = 756) MEAN PLATELET VOLUME (BEAKER) 9.9 fL 9.4-12.4 (test code = 754) NUCLEATED RED BLOOD CELLS 0 /100 WBC 0-0 (BEAKER) (test code = 413) NEUTROPHILS RELATIVE PERCENT 72 % (BEAKER) (test code = 429) LYMPHOCYTES RELATIVE PERCENT 15 % (BEAKER) (test code = 430) MONOCYTES RELATIVE PERCENT 10 % (BEAKER) (test code = 431) EOSINOPHILS RELATIVE PERCENT 2 % (BEAKER) (test code = 432) BASOPHILS RELATIVE PERCENT 0 % (BEAKER) (test code = 437) NEUTROPHILS ABSOLUTE COUNT 8.42 K/ L 1.78-5.38 H (BEAKER) (test code = 670) LYMPHOCYTES ABSOLUTE COUNT 1.77 K/ L 1.32-3.57 (BEAKER) (test code = 414) MONOCYTES ABSOLUTE COUNT (BEAKER) 1.22 K/ L 0.30-0.82 H (test code = 415) EOSINOPHILS ABSOLUTE COUNT 0.17 K/ L 0.04-0.54 (BEAKER) (test code = 416) BASOPHILS ABSOLUTE COUNT (BEAKER) 0.05 K/ L 0.01-0.08 (test code = 417) IMMATURE GRANULOCYTES-RELATIVE 1 % 0-1 PERCENT (BEAKER) (test code = 2801) PROTHROMBIN [id number] 21:58:00 Test Item Value Reference Range Interpretation Comments PROTIME (BEAKER) (test code = 14.1 seconds 11.9-14.2 759) INR (BEAKER) (test code = 370) 1.1 <=5.9 Effective 09/24/2018: PT Reference Range ChangeNew: 11.9-14.2 Previous: 11.7- 14.7RECOMMENDED COUMADIN/WARFARIN INR THERAPY RANGESSTANDARD DOSE: 2.0-3.0 Includes: PROPHYLAXIS for venous thrombosis, systemic embolization; TREATMENT for venous thrombosis and/or pulmonary embolus.HIGH RISK: Target INR is 2.5-3.5 for patients wiht mechanical heart valves.POCT-GLUCOSE [id number] 21:39:00 Test Item Value Reference Range Interpretation Comments POC-GLUCOSE METER 120 mg/dL 70-110 H : TESTED A T [facility] 6720 ([employer]AKER) (test code = [facility], 1538) [address]: Clinic Nurse/Techni maurice ID = [id number] for FRANCES UASHLEY [id number] 18:40:00 Test Item Value Reference Range Interpretation Comments PARTIAL THROMBOPLASTIN TIME 62.2 seconds 22.5-36.0 H (BEAKER) (test code = 760) PLATELET AGGREGATION: FUNCTION [id number] 17:43:00 Test Item Value Reference Range Interpretation Comments [id number] Yue Kenney MD ([employer]) (test code = (electronic 2622) signature) PLATELET COUNT AGG 292 K/CU MM 150-450 (BEAKER) (test code = 2656) PLATELET RICH 270 k/cu mm 200-300 PLASMA(BEAKER) (test code = 2134) PLATELET FUNCTION SCREEN Decreased aggregation INTERPRETATION (BEAKER) with ADP which (test code = 4655) indicates platelet dysfunction that may be due to medication effect, uremia, or other platelet function disorders. Clinical correlation is required. ADP (BEAKER) (test code 36 % 62-100 L = 0744) Platelet Function Screen results may be falsely low with platelet counts<75,000/cu mm.Clinic Nurse ID- [id number] 11:19:00 Test Item Value Reference Range Interpretation Comments PARTIAL THROMBOPLASTIN TIME 35.3 seconds 22.5-36.0 (BEAKER) (test code = 760) URIC [id number] 09:32:00 Test Item Value Reference Range Interpretation Comments URIC ACID (BEAKER) (test code = 9.8 mg/dL 2.6-7.2 H 773) Clinic Nurse ID - TONI CHEMOGLOBIN [id number] 04:37:00 Test Item Value Reference Range Interpretation Comments HEMOGLOBIN A1C (BEAKER) (test code = 6.2 % 4.3-6.1 H 368) [id number] 03:17:00 Test Item Value Reference Range Interpretation Comments PARTIAL THROMBOPLASTIN TIME 36.8 seconds 22.5-36.0 H (BEAKER) (test code = 760) [id number] 03:16:00 Test Item Value Reference Range Interpretation Comments MAGNESIUM (BEAKER) (test code = 1.9 mg/dL 1.6-2.6 627) Clinic Nurse ID - [facility]OM [facility] [id number] 03:16:00 Test Item Value Reference Range Interpretation Comments TOTAL PROTEIN 7.6 gm/dL 6.0-8.3 (BEAKER) (test code = 770) ALBUMIN (BEAKER) 3.8 g/dL 3.5-5.0 (test code = 1145) ALKALINE PHOSPHATASE 46 U/L 40-150 (BEAKER) (test code = 346) BILIRUBIN TOTAL 1.5 mg/dL 0.2-1.2 H (BEAKER) (test code = 377) SODIUM (BEAKER) (test 136 meq/L 136-145 code = 381) POTASSIUM (BEAKER) 4.0 meq/L 3.5-5.1 (test code = 379) CHLORIDE (BEAKER) 104 meq/L 98-107 (test code = 382) CO2 (BEAKER) (test 25 meq/L 22-29 code = 355) BLOOD UREA NITROGEN 14 mg/dL 7-21 (BEAKER) (test code = 354) CREATININE (BEAKER) 0.96 mg/dL 0.57-1.25 (test code = 358) GLUCOSE RANDOM 113 mg/dL 70-105 H (BEAKER) (test code = 652) CALCIUM (BEAKER) 9.2 mg/dL 8.4-10.2 (test code = 697) AST (SGOT) (BEAKER) 56 U/L 5-34 H (test code = 353) ALT (SGPT) (BEAKER) 33 U/L 6-55 (test code = 347) EGFR (BEAKER) (test 78 mL/min/1.73 ESTIMA AILIN GFR IS code = 1092) sq m NOT ACCURATE CREATININE CLEARANCE IN PREDICTING GLOMERULAR FILTRATION RATE . ESTIMATED GFR I S NOT APPLICABLE FOR DIALYSIS PATIEN TS. Clinic Nurse ID - ANCELMO MCBC W/PLT COUNT & AUTO [id number] 02:52:00 Test Item Value Reference Range Interpretation Comments WHITE BLOOD CELL COUNT (BEAKER) 11.3 K/ L 3.5-10.5 H (test code = 775) RED BLOOD CELL COUNT (BEAKER) 5.06 M/ L 4.63-6.08 (test code = 761) HEMOGLOBIN (BEAKER) (test code = 14.8 GM/DL 13.7-17.5 410) HEMATOCRIT (BEAKER) (test code = 44.4 % 40.1-51.0 411) MEAN CORPUSCULAR VOLUME (BEAKER) 87.7 fL 79.0-92.2 (test code = 753) MEAN CORPUSCULAR HEMOGLOBIN 29.2 pg 25.7-32.2 (BEAKER) (test code = 751) MEAN CORPUSCULAR HEMOGLOBIN CONC 33.3 GM/DL 32.3-36.5 (BEAKER) (test code = 752) RED CELL DISTRIBUTION WIDTH 13.8 % 11.6-14.4 (BEAKER) (test code = 412) PLATELET COUNT (BEAKER) (test 275 K/CU MM 150-450 code = 756) MEAN PLATELET VOLUME (BEAKER) 9.9 fL 9.4-12.4 (test code = 754) NUCLEATED RED BLOOD CELLS 0 /100 WBC 0-0 (BEAKER) (test code = 413) NEUTROPHILS RELATIVE PERCENT 68 % (BEAKER) (test code = 429) LYMPHOCYTES RELATIVE PERCENT 20 % (BEAKER) (test code = 430) MONOCYTES RELATIVE PERCENT 10 % (BEAKER) (test code = 431) EOSINOPHILS RELATIVE PERCENT 2 % (BEAKER) (test code = 432) BASOPHILS RELATIVE PERCENT 0 % (BEAKER) (test code = 437) NEUTROPHILS ABSOLUTE COUNT 7.63 K/ L 1.78-5.38 H (BEAKER) (test code = 670) LYMPHOCYTES ABSOLUTE COUNT 2.20 K/ L 1.32-3.57 (BEAKER) (test code = 414) MONOCYTES ABSOLUTE COUNT (BEAKER) 1.12 K/ L 0.30-0.82 H (test code = 415) EOSINOPHILS ABSOLUTE COUNT 0.17 K/ L 0.04-0.54 (BEAKER) (test code = 416) BASOPHILS ABSOLUTE COUNT (BEAKER) 0.05 K/ L 0.01-0.08 (test code = 417) IMMATURE GRANULOCYTES-RELATIVE 1 % 0-1 PERCENT (BEAKER) (test code = 2801) [id number] 01:00:00 Test Item Value Reference Range Interpretation Comments PARTIAL THROMBOPLASTIN TIME 132.1 seconds 22.5-36.0 H (BEAKER) (test code = 760) POCT-GLUCOSE [id number] 16:18:00 Test Item Value Reference Range Interpretation Comments POC-GLUCOSE METER 127 mg/dL 70-110 H : TESTED A T [facility] 6720 (BEAKER) (test code = [facility], 1538) [address]: Clinic Nurse/Techni maurice ID = [id number] for BE LL, BEAULA [id number] 14:52:00 Test Item Value Reference Range Interpretation Comments PARTIAL THROMBOPLASTIN TIME 42.2 seconds 22.5-36.0 H (BEAKER) (test code = 760) RAD, CHEST, 1 VIEW, NON [id number] 13:16:00Reason for exam:- >effusionShould this be performed at the bedside?->YesFINAL REPORT INDICATION: effusion COMPARISON: None TECHNIQUE: Single frontal vie w of the chest. FINDINGS: Lungs and pleura: Clear lungs. No effusion.Heart and mediastinum: Normal heart size. Unremarkable mediastinal contours.Osseous structures: No acute abnormality.Other: None. IMPRESSION: No acute intrathoracic abnormality. Signed: [facility] Verified Date/Time: 09/01/2019 13:16:15 Reading Location: [facility] Radiology Reading Room POCT-GLUCOSE METER 2019-09-01 11:28:00 Test Item Value Reference Range Interpretation Comments POC-GLUCOSE METER 118 mg/dL 70-110 H : TESTED A T [facility] 6720 (BEAKER) (test code = [facility], 1538) [address]: Clinic Nurse/Techni maurice ID = [id number] for BE LL, BEAULA PLATELET AGGREGATION: FUNCTION [id number] 10:45:00 Test Item Value Reference Range Interpretation Comments [id number] Yue Kenney MD (BEAKER) (test code = (electronic 4016) signature) PLATELET COUNT AGG 273 K/CU MM 150-450 (BEAKER) (test code = 2656) PLATELET RICH 200 k/cu mm 200-300 PLASMA(BEAKER) (test code = 2134) PLATELET FUNCTION SCREEN Decreased aggregation INTERPRETATION (BEAKER) with ADP which (test code = 5706) indicates platelet dysfunction that may be due to medication effect, uremia, or other platelet function disorders. Clinical correlation is required. ADP (BEAKER) (test code 15 % 62-100 L = 465) Platelet Function Screen results may be falsely low with platelet counts<75,000/cu mm.Clinic Nurse ID- [id number] 07:42:00 Test Item Value Reference Range Interpretation Comments MAGNESIUM (BEAKER) (test code = 1.8 mg/dL 1.6-2.6 627) Clinic Nurse ID - NTPCOMPREHENSIVE METABOLIC [id number] 07:42:00 Test Item Value Reference Range Interpretation Comments TOTAL PROTEIN 7.4 gm/dL 6.0-8.3 (BEAKER) (test code = 770) ALBUMIN (BEAKER) 3.8 g/dL 3.5-5.0 (test code = 1145) ALKALINE PHOSPHATASE 45 U/L 40-150 (BEAKER) (test code = 346) BILIRUBIN TOTAL 1.1 mg/dL 0.2-1.2 (BEAKER) (test code = 377) SODIUM (BEAKER) (test 136 meq/L 136-145 code = 381) POTASSIUM (BEAKER) 3.9 meq/L 3.5-5.1 (test code = 379) CHLORIDE (BEAKER) 105 meq/L 98-107 (test code = 382) CO2 (BEAKER) (test 21 meq/L 22-29 L code = 355) BLOOD UREA NITROGEN 13 mg/dL 7-21 (BEAKER) (test code = 354) CREATININE (BEAKER) 0.87 mg/dL 0.57-1.25 (test code = 358) GLUCOSE RANDOM 128 mg/dL 70-105 H (BEAKER) (test code = 652) CALCIUM (BEAKER) 9.0 mg/dL 8.4-10.2 (test code = 697) AST (SGOT) (BEAKER) 35 U/L 5-34 H (test code = 353) ALT (SGPT) (BEAKER) 20 U/L 6-55 (test code = 347) EGFR (BEAKER) (test 87 mL/min/1.73 ESTIMA AILIN GFR IS code = 1092) sq m NOT ACCURATE CREATININE CLEARANCE IN PREDICTING GLOMERULAR FILTRATION RATE . ESTIMATED GFR I S NOT APPLICABLE FOR DIALYSIS PATIEN TS. Clinic Nurse ID - NTPLIPID [id number] 07:42:00 Test Item Value Reference Range Interpretation Comments TRIGLYCERIDES (BEAKER) (test code = 138 mg/dL 540) CHOLESTEROL (BEAKER) (test code = 183 mg/dL 631) HDL CHOLESTEROL (BEAKER) (test code 49 mg/dL = 976) LDL CHOLESTEROL CALCULATED (BEAKER) 106 mg/dL (test code = 633) Triglyceride Reference Range: Low Risk <150 Borderline 150-199 High Risk 200- 499 Very High Risk >=500Cholesterol Reference Range: Low Risk <200 Borderline 200-239 High Risk >240HDL Cholesterol Reference Range: Low Risk >=60 High Risk <40LDL Cholesterol Reference Range: Optimal <100 Near Optimal 100-129 Borderline 130-159 High 160-189 Very High >=190 Clinic Nurse ID - NTPCBC W/PLT COUNT & AUTO [id number] 06:45:00 Test Item Value Reference Range Interpretation Comments WHITE BLOOD CELL COUNT (BEAKER) 10.5 K/ L 3.5-10.5 (test code = 775) RED BLOOD CELL COUNT (BEAKER) 5.23 M/ L 4.63-6.08 (test code = 761) HEMOGLOBIN (BEAKER) (test code = 15.2 GM/DL 13.7-17.5 410) HEMATOCRIT (BEAKER) (test code = 45.3 % 40.1-51.0 411) MEAN CORPUSCULAR VOLUME (BEAKER) 86.6 fL 79.0-92.2 (test code = 753) MEAN CORPUSCULAR HEMOGLOBIN 29.1 pg 25.7-32.2 (BEAKER) (test code = 751) MEAN CORPUSCULAR HEMOGLOBIN CONC 33.6 GM/DL 32.3-36.5 (BEAKER) (test code = 752) RED CELL DISTRIBUTION WIDTH 14.1 % 11.6-14.4 (BEAKER) (test code = 412) PLATELET COUNT (BEAKER) (test 302 K/CU MM 150-450 code = 756) MEAN PLATELET VOLUME (BEAKER) 10.0 fL 9.4-12.4 (test code = 754) NUCLEATED RED BLOOD CELLS 0 /100 WBC 0-0 (BEAKER) (test code = 413) NEUTROPHILS RELATIVE PERCENT 70 % (BEAKER) (test code = 429) LYMPHOCYTES RELATIVE PERCENT 19 % (BEAKER) (test code = 430) MONOCYTES RELATIVE PERCENT 9 % (BEAKER) (test code = 431) EOSINOPHILS RELATIVE PERCENT 1 % (BEAKER) (test code = 432) BASOPHILS RELATIVE PERCENT 0 % (BEAKER) (test code = 437) NEUTROPHILS ABSOLUTE COUNT 7.37 K/ L 1.78-5.38 H (BEAKER) (test code = 670) LYMPHOCYTES ABSOLUTE COUNT 1.97 K/ L 1.32-3.57 (BEAKER) (test code = 414) MONOCYTES ABSOLUTE COUNT (BEAKER) 0.93 K/ L 0.30-0.82 H (test code = 415) EOSINOPHILS ABSOLUTE COUNT 0.13 K/ L 0.04-0.54 (BEAKER) (test code = 416) BASOPHILS ABSOLUTE COUNT (BEAKER) 0.04 K/ L 0.01-0.08 (test code = 417) IMMATURE GRANULOCYTES-RELATIVE 1 % 0-1 PERCENT (BEAKER) (test code = 2801) [id number] 06:36:00 Test Item Value Reference Range Interpretation Comments PARTIAL THROMBOPLASTIN TIME 55.6 seconds 22.5-36.0 H (BEAKER) (test code = 760) [id number] 00:04:00 Test Item Value Reference Range Interpretation Comments PARTIAL THROMBOPLASTIN TIME 44.4 seconds 22.5-36.0 H (BEAKER) (test code = 760) SARS-COV2/RT-PCR ([facility])2019-08-31 18:39:00 Test Item Value Reference Range Interpretation Comments SARS-COV2/RT-PCR (test Not Detected Not Detected, Negative code = 5879655) SARS-COV-2 PERFORMING LAB [facility] (test code = 7365661) Negative results do not preclude SARS-CoV-2 infection and should not be used as the sole basis for patient management decisions. Negative results must be combined with clinical observations, patient history, and epidemiological information. A false negative result may occur if a specimen is improperly collected, transported or handled.The limit of detection for this assay is 250 copies/mL.This SARS CoV-2 test is a rapid, real-time RT-PCR test intended for the qualitative detection of nucleic acid from SARS-CoV-2 in a nasopharyngeal swab specimen collected from individuals suspected of COVID-19 by their healthcare provider.This test has not been Food and Drug Administration (FDA) cleared or approved and has been authorized by FDA under an Emergency Use Authorization (EUA). This EUA will be effective until the declaration that circumstances exist justifying the authorization of the emergency use of in vitro diagnostic tests for detection and/or diagnosis of COVID-19 is terminated under Section 564(b)(2) of the Act or the EUA is revoked under Section 564(g) of the Act.Fact Sheet for Healthcare Pro viders:https://www.[employer]/Documents/Xpert%20Xpress%20SARS%20CoV-2/Fact%20Sh eets/302-3802%59HTDB-OOF-5%20HEALTHCARE%20PROVIDERS%20FACT%20SHEET.pdfFact Sheet for Healthcare Patients:https://www.[employer]/Documents/Xpert%20Xpress%20SARS%20CoV-2/Fact%20Sheets/302-3801%20SARS-COV -2%20PATIENT%20FACT%20SHEET.pdfPerforming Laboratory:[facility] [facility]mondsG[facility], [place] [address]M-YVNR NATRIURETIC FACTOR (BNP) 2019-08-31 18:34:00 Test Item Value Reference Range Interpretation Comments B-TYPE NATRIURETIC PEPTIDE (BEAKER) 38 pg/mL 0-100 (test code = 700) Clinic Nurse ID - DBPROTHROMBIN TIME/[id number] 17:56:00 Test Item Value Reference Range Interpretation Comments PROTIME (BEAKER) (test code = 14.0 seconds 11.9-14.2 759) INR (BEAKER) (test code = 370) 1.1 <=5.9 Effective 09/24/2018: PT Reference Range ChangeNew: 11.9-14.2 Previous: 11.7- 14.7RECOMMENDED COUMADIN/WARFARIN INR THERAPY RANGESSTANDARD DOSE: 2.0-3.0 Includes: PROPHYLAXIS for venous thrombosis, systemic embolization; TREATMENT for venous thrombosis and/or pulmonary embolus.HIGH RISK: Target INR is 2.5-3.5 for patients wiht mechanical heart valves.[id number] 17:56:00 Test Item Value Reference Range Interpretation Comments FIBRINOGEN LEVEL (BEAKER) (test 459 mg/dl 225-434 H code = 658) TROPONIN [id number] 17:53:00 Test Item Value Reference Range Interpretation Comments TROPONIN I (BEAKER) (test code = 3.23 ng/mL 0.00-0.03 397) Troponin I (TnI) levels must be interpreted in the context of the presenting symptoms and the clinical findings. Elevated TnI levels indicate myocardial damage, but are not specific for ischemic heart disease. Elevated TnI levels are seen in patients with other cardiac conditions (including myocarditis and congestive heart failure), and slight TnI elevations occur in patients with other conditions, including sepsis, renal failure, acidosis, acute neurological disease, and persistent tachyarrhythmia.Clinic Nurse ID - BSCOMPREHENSIVE METABOLIC [id number] 17:42:00 Test Item Value Reference Range Interpretation Comments TOTAL PROTEIN 7.3 gm/dL 6.0-8.3 Specimen sligh tly (BEAKER) (test code = hemoly zed 770) ALBUMIN (BEAKER) 3.8 g/dL 3.5-5.0 Specimen sl ightly (test code = 1145) hemolyzed ALKALINE PHOSPHATASE 46 U/L 40-150 (BEAKER) (test code = 346) BILIRUBIN TOTAL 1.1 mg/dL 0.2-1.2 Specimen sli ghtly (BEAKER) (test code = hemoly zed 377) SODIUM (BEAKER) (test 137 meq/L 136-145 code = 381) POTASSIUM (BEAKER) 4.1 meq/L 3.5-5.1 Specimen slightly (test code = 379) hemolyzed CHLORIDE (BEAKER) 105 meq/L 98-107 (test code = 382) CO2 (BEAKER) (test 25 meq/L 22-29 code = 355) BLOOD UREA NITROGEN 11 mg/dL 7-21 (BEAKER) (test code = 354) CREATININE (BEAKER) 0.81 mg/dL 0.57-1.25 Specimen slightly (test code = 358) hemolyzed GLUCOSE RANDOM 108 mg/dL 70-105 H (BEAKER) (test code = 652) CALCIUM (BEAKER) 9.0 mg/dL 8.4-10.2 (test code = 697) AST (SGOT) (BEAKER) 53 U/L 5-34 H Specimen slightly (test code = 353) hemolyzed ALT (SGPT) (BEAKER) 24 U/L 6-55 Specimen slightly (test code = 347) hemolyzed EGFR (BEAKER) (test 94 mL/min/1.73 ESTIMA AILIN GFR IS code = 1092) sq m NOT ACCURATE CREATININE CLEARANCE IN PREDICTING GLOMERULAR FILTRATION RATE . ESTIMATED GFR I S NOT APPLICABLE FOR DIALYSIS PATIEN TS. Clinic Nurse ID - BSCBC W/PLT COUNT & AUTO [id number] 17:28:00 Test Item Value Reference Range Interpretation Comments WHITE BLOOD CELL COUNT (BEAKER) 9.9 K/ L 3.5-10.5 (test code = 775) RED BLOOD CELL COUNT (BEAKER) 4.91 M/ L 4.63-6.08 (test code = 761) HEMOGLOBIN (BEAKER) (test code = 14.9 GM/DL 13.7-17.5 410) HEMATOCRIT (BEAKER) (test code = 43.6 % 40.1-51.0 411) MEAN CORPUSCULAR VOLUME (BEAKER) 88.8 fL 79.0-92.2 (test code = 753) MEAN CORPUSCULAR HEMOGLOBIN 30.3 pg 25.7-32.2 (BEAKER) (test code = 751) MEAN CORPUSCULAR HEMOGLOBIN CONC 34.2 GM/DL 32.3-36.5 (BEAKER) (test code = 752) RED CELL DISTRIBUTION WIDTH 14.2 % 11.6-14.4 (BEAKER) (test code = 412) PLATELET COUNT (BEAKER) (test 309 K/CU MM 150-450 code = 756) MEAN PLATELET VOLUME (BEAKER) 10.0 fL 9.4-12.4 (test code = 754) NUCLEATED RED BLOOD CELLS 0 /100 WBC 0-0 (BEAKER) (test code = 413) NEUTROPHILS RELATIVE PERCENT 71 % (BEAKER) (test code = 429) LYMPHOCYTES RELATIVE PERCENT 19 % (BEAKER) (test code = 430) MONOCYTES RELATIVE PERCENT 8 % (BEAKER) (test code = 431) EOSINOPHILS RELATIVE PERCENT 2 % (BEAKER) (test code = 432) BASOPHILS RELATIVE PERCENT 0 % (BEAKER) (test code = 437) NEUTROPHILS ABSOLUTE COUNT 7.03 K/ L 1.78-5.38 H (BEAKER) (test code = 670) LYMPHOCYTES ABSOLUTE COUNT 1.84 K/ L 1.32-3.57 (BEAKER) (test code = 414) MONOCYTES ABSOLUTE COUNT (BEAKER) 0.75 K/ L 0.30-0.82 (test code = 415) EOSINOPHILS ABSOLUTE COUNT 0.18 K/ L 0.04-0.54 (BEAKER) (test code = 416) BASOPHILS ABSOLUTE COUNT (BEAKER) 0.04 K/ L 0.01-0.08 (test code = 417) IMMATURE GRANULOCYTES-RELATIVE 0 % 0-1 PERCENT (BEAKER) (test code = 2801) Notes Date/Time Note Provider Source 2019-09-04 18:58:50-00:00 HENRIK IRAHETA [facility] OPERATIVE/PROCEDURE REPORT AZALEA MACHADO FACILITY: [facility] Billing #: [id number] Room: [address] [place] [address] MR #: [id number] : 1950 DATE OF PROCEDURE: 09/03/2019 SURGEON: Henrik Iraheta MD PREOPERATIVE DIAGNOSIS: Severe multivessel coron sreekanth artery disease. POSTOPERATIVE DIAGNOSIS: Severe multivessel sonja nary artery disease. NAME OF PROCEDURES: 1. Coronary artery bypass surgery x3, left inter nal mammary artery to distal left anterior descending, saphe nous vein graft to distal right coronary artery, saphenous vein graft to the ramus intermedius. 2. Endovein saphenous vein harvesting. ASSISTANTS: 1. Daniel Hurtado MD. 2. EDMAR Ryder. ANESTHESIA: General endotracheal anesthesia. INDICATIONS: The patient is a 69-year-old diabet ic male who was admitted to an outside hospital with new ons et chest pain. Non-ST myocardial infarction was diagnosed and h e underwent a coronary angiogram, which demonstrated severe mu ltivessel coronary artery disease. He was transferred to [facility] for surgical revascularization. We are now taking the patient to the operating room for coronary arter y bypass surgery. OPERATIVE DETAILS: The patient was taken to the operating room and placed on the operating table in the supine position. After induction of general endotracheal anesthesia and placement of routine monitoring lines, including a transesoph ageal echocardiogram probe, the patient's chest, abdom en, and both groins and legs were then prepped and draped in the usual sterile fashion. A median sternotomy was perform ed. The left internal mammary artery was taken down from the chest wall. Simultaneously, the greater saphenous vein was h arvested endoscopically from the right thigh and leg. Hep edson was then administered and cannulas were placed into the a scending aorta and a triple staged venous cannula was inserted through the superior vena cava for cardiopulmonary bypass. I n addition, an antegrade cardioplegia catheter was inserted int o the aortic root. Once a sufficient activated clotting time was achieved, cardiopulmonary bypass was initiated. The aorta was then crossclamped and the heart was arrested with col d blood cardioplegia. Thereafter, cold blood cardioplegi a was given every 15 to 20 minutes during the period of card iac arrest. Separate pieces of reversed saphenous vein were then anastomosed in an end-to-side fashion to the dis henok right coronary artery and the ramus intermedius, each using running 7-0 Prolene sutures. The left internal mammary a rtery was then anastomosed in situ to the mid left anterior jersey cending coronary, also in an end-to-side fashion using a running 7-0 Prolene suture. All distal anastomoses were chec ked with coronary probes and 2 proximal saphenous vein gr aft anastomoses were taken off the ascending aorta utilizing run kathrin 6-0 Prolene sutures. A shot hole driller of warm blood cardi oplegia was then administered, the aortic root was de-aired and the aortic cross-clamp was removed. The patient returned to a normal sinus rhythm and after a suitable period of girffin very and complete de-airing, respirations were resumed, a nd the patient was weaned off cardiopulmonary bypass. Protamine was administered the bypass cannulas were removed. T he bypass grafts were then interrogated with a Transonic f low probe and all grafts demonstrated excellent flow parameter s. Once coagulopathy had been corrected and we were sati sfied with the hemodynamics and hemostasis, we proceeded with c hest closure in the usual fashion. Temporary epicardial pacing w ires were placed on the ventricle, and chest tubes were in serted and secured into place. The sternum was then reappro ximated with interrupted #7 stainless steel wires. The rectus fascia was brought together with interrupted #1 Ethibond adler tures and the muscle and subcutaneous tissue were closed in la yers of running absorbable sutures. The skin was reapproximated with skin lalito. Sterile dressings were applied and the patient was then transported to the cardiovascular intensive care unit for further management. By transesophageal echocardi ogram at the end of the procedure, there were no new wall mot ion abnormalities and good biventricular function. ESTIMATED BLOOD LOSS: 300 mL. COUNTS: All sponge and instrument counts were co rrect at completion of the procedure. AES/MODL /[id number]
[2022-11-22] MEDS ORDERED: MORPHINE 4 MG/ML SYR ONE ×2 (06:15→07:56)
[2022-11-22] MEDS ORDERED: NA CHLORIDE 0.9% 0 ML ONE (06:16)
[2022-11-22] MEDS ORDERED: FAMOTIDINE 20 MG/2 ML VIAL IV ONE (06:16)
[2022-11-22] MEDS ORDERED: ONDANSETRON 4 MG/2 ML VIAL ONE ×2 (06:16→08:05)
[2022-11-22] MEDS ORDERED: KETOROLAC 30 MG/ML INJ ONE (06:16)
[2022-11-22] MEDS ORDERED: NA CHLORIDE 0.9% 1,000 ML ONE (06:25)
[2022-11-22 06:28] LABS: Absolute Lymphocytes (CBC) 1.2 K/uL (0.7-4.9); Hematocrit 44.1 % (39.6-49.0); Lymphocytes % 13.5 % (15.3-44.8); MCV 85.3 fL (80-100); MPV 8.6 fL (7.6-11.3); RBC Red Blood Cell Count 5.16 M/uL (4.33-5.43)
[2022-11-22 06:32] LABS: Specific Gravity > 1.030 (1.005-1.030); Urine Bacteria 20-50 /HPF (<20); Urine Bilirubin NEGATIVE (Negative); Urine Blood 3+ (OVER) (Negative); Urine Clarity Extremely Turbid (Clear); Urine Color Yellow (Yellow); Urine Glucose NEGATIVE (Negative); Urine Mucus 2+ /HPF (None Seen); Urine Protein TRACE (Negative); Urine RBC >50 /HPF (None Seen); Urine Urobilinogen Normal (Normal); Urine pH 5.5 (5.0-7.0)
[2022-11-22 06:52] LABS: Albumin 3.3 g/dL (3.4-5.0); Bilirubin Total 0.9 mg/dL (0.2-1.0); Potassium 4.1 mEq/L (3.5-5.1); Protein, Total 7.5 g/dL (6.4-8.2)
--- NOTE | 2022-11-22 08:12 | RAD REPORT ---
EXAM DESCRIPTION: CTAbdomen Pelvis W Contrast - 11/22/2022 7:19 am CLINICAL HISTORY: Abdominal pain. LEFT FLANK PAIN COMPARISON: No comparisons TECHNIQUE: Biphasic CT imaging of the abdomen and pelvis was performed with 100 ml non-ionic IV cont rast. All CT scans are performed using dose optimization technique as appropriate and may include automated exposure control or mA/KV adjustment according to patient size. FINDINGS: The lung bases are clear.Cholelithiasis. Small hiatal hernia. The liver demonstrates mild fatty infiltration. Spleen, pancreas, adrenal glands and right kidney are within normal limits. Moderate left hydronephrosis and hydroureter is present caused by 5 mm stone a t the left UVJ. Small additional calculi present kidney. No bowel obstruction, free air, free fluid or abscess. The appendix is normal. No evidence of signi ficant lymphadenopathy. Moderate lumbar degenerative changes. IMPRESSION: 5 mm stone left UVJ resulting in moderate left hydronephrosis. Additional left nephrolithiasis.
--- NOTE | 2022-11-22 08:29 | ER ---
Nurse's Notes [facility] Name: Joseph Machado Age: 72 yrs Sex: Male : 1950 Arrival Date: 11/22/2022 Time: 05:03 Bed 6 Private MD: Diagnosis: Kidney stone L UVJ with moderate hydronephrosis;Essential (primary) hypertension Presentation: 11/22 05:29 Chief complaint: Patient states: left flank pain radiating to groin began at 0300 woke kl him up from sleep. Coronavirus screen: Vaccine status: Patient reports receiving the 2nd dose of the covid vaccine. Ebola Screen: Patient negative for fever greater than or equal to 101.5 degrees Fahrenheit, and additional compatible Ebola Virus Disease symptoms. Initial Sepsis Screen: Does the patient meet any 2 criteria? No. Patient's initial sepsis screen is negative. Does the patient have a suspected source of infection? No. Patient's initial sepsis screen is negative. Risk Assessment: Do you want to hurt yourself or someone else? Patient reports no desire to harm self or others. Onset of symptoms was November 22, 2022 at 03:00. 05:29 Method Of Arrival: Ambulatory 05:29 Acuity: YESSICA 3 kl Triage Assessment: 05:31 General: Appears distressed, uncomfortable, Behavior is cooperative. Pain: Complains of kl pain in left mid back Pain radiates to left femoral area and left inguinal area Pain currently is 10 out of 10 on a pain scale. Quality of pain is described as sharp, shooting. EENT: No deficits noted. Neuro: No deficits noted. Cardiovascular: No deficits noted. Respiratory: No deficits noted. GI: No deficits noted. No signs and/or symptoms were reported involving the gastrointestinal system. : Reports flank pain denies difficulty urinating. Historical: - Allergies: 05:30 No Known Allergies; kl - PMHx: 05:30 Hypertensive disorder; kl - PSHx: 05:30 cardiac bypass; kl - Immunization history:: Adult Immunizations not immunized. - Social history:: Smoking status: Patient denies any tobacco usage or history of. - Family history:: not pertinent. Screenin:10 [facility] ED Fall Risk Assessment (Adult) History of falling in the last 3 months, vc1 including since admission No falls in past 3 months (0 pts) Confusion or Disorientation No (0 pts) Intoxicated or Sedated No (0 pts) Impaired Gait No (0 pts) Mobility Assist Device Used No (0 pt) Altered Elimination No (0 pt) Score/Fall Risk Level 0 - 2 = Low Risk Oriented to surroundings, Maintained a safe environment, Educated pt \T\ family on fall prevention, incl call for assistance when getting out of bed. Abuse screen: Denies threats or abuse. Nutritional screening: No deficits noted. Tuberculosis screening: No symptoms or risk factors identified. Assessment: 06:11 Reassessment: see triage assessment. vc1 06:54 Reassessment: No changes from previously documented assessment. Patient and/or family vc1 updated on plan of care and expected duration. Pain level reassessed. Patient is alert, oriented x 3, equal unlabored respirations, skin warm/dry/pink. 07:30 Reassessment: Patient is alert, oriented x 3, equal unlabored respirations, skin aa5 warm/dry/pink. Pt requesting pain medication, MD was notified. . Pain: Complains of pain in left lateral aspect of abdomen Pain currently is 7 out of 10 on a pain scale. 07:30 Reassessment: Awaiting radiology results, pt notified of wait time. . aa5 07:47 Reassessment: Patient is alert, oriented x 3, equal unlabored respirations, skin aa5 warm/dry/pink. General: Appears uncomfortable. Pain: Complains of pain in left lateral aspect of abdomen Noted to be guarding. 07:55 Reassessment: Patient is alert, oriented x 3, equal unlabored respirations, skin aa5 warm/dry/pink. Pt reports nausea, MD notified. . 08:46 Reassessment: Patient is alert, oriented x 3, equal unlabored respirations, skin aa5 warm/dry/pink. 09:30 Reassessment: Patient is alert, oriented x 3, equal unlabored respirations, skin aa5 warm/dry/pink. Vital Signs: 05:29 BP 178 / 64; Pulse 55; Resp 20; Temp 97.9(O); Pulse Ox 98% on R/A; Weight 90.72 kg (R); kl Height 5 ft. 2 in. ; Pain 10/10; 06:54 BP 181 / 67; Pulse 54; Resp 19; Pulse Ox 96% on R/A; vc1 07:47 BP 182 / 92; Pulse 58; Resp 20 S; Temp 98(TE); Pulse Ox 100% on R/A; Pain 10/10; aa5 07:55 Pulse 58; Resp 18 S; Pulse Ox 99% on R/A; aa5 08:46 BP 180 / 62; Pulse 54; Resp 15 S; Temp 98(TE); Pulse Ox 96% on R/A; Pain 6/10; aa5 05:29 Body Mass Index 36.58 (90.72 kg, 157.48 cm) kl 05:29 Pain Scale: Adult kl 07:47 Pain Scale: Adult aa5 08:46 Pain Scale: Adult aa5 ED Course: 05:13 Patient arrived in ED. es 05:20 Ja Nair MD is Attending Physician. sp4 05:30 Triage completed. kl 05:36 Radiology exam delayed due to lab results not completed at this time. (BUN/Creatinine) eh4 IV insertion attempt and/or patient not having appropriate IV at this time. 06:10 Sophia Jackson, RN is Primary Nurse. vc1 06:10 Inserted saline lock: 20 gauge in right antecubital area, using aseptic technique. vc1 Blood collected. 06:10 Arm band placed on left wrist. vc1 06:11 Patient has correct armband on for positive identification. Placed in gown. Bed in low vc1 position. Call light in reach. Pulse ox on. NIBP on. 07:05 Attending Physician role handed off by Ja Nair MD ms3 07:05 Son Julio DO is Attending Physician. ms3 07:21 CT Abd/Pelvis - IV Contrast Only In Process Unspecified. EDMS 08:28 Patric Allen MD is Referral Physician. ms3 09:30 No provider procedures requiring assistance completed. IV discontinued, intact, aa5 bleeding controlled, No redness/swelling at site. Pressure dressing applied. Administered Medications: 06:05 Drug: NS 0.9% IV 1000 ml Route: IV; Rate: 1 bolus; Site: right antecubital; kl 07:25 Follow up: IV Status: Completed infusion; IV Intake: 1000ml aa5 06:05 Drug: Famotidine IVP 20 mg Route: IVP; Site: right antecubital; kl 06:08 Drug: Ondansetron IVP 4 mg Route: IVP; Site: right antecubital; kl 06:10 Drug: morphine IVP or IV 4 mg Route: IVP; Infused Over: 4 mins; Site: right antecubital;kl 06:17 Drug: TORadol - Ketorolac IVP 15 mg Route: IVP; Site: right antecubital; kl 07:48 Drug: morphine IVP or IV 4 mg Route: IVP; Infused Over: 4 mins; Site: right antecubital;aa5 07:57 Follow up: Response: No adverse reaction aa5 07:57 Drug: Ondansetron IVP 4 mg Route: IVP; Site: right antecubital; aa5 08:20 Follow up: Response: No adverse reaction aa5 Medication: 06:11 VIS not applicable for this client. vc1 Intake: 07:25 IV: 1000ml; Total: 1000ml. aa5 Outcome: 08:28 Discharge ordered by . ms3 09:35 Discharged to home via wheelchair, with family. aa5 09:35 Condition: stable 09:35 Discharge instructions given to patient, family, Instructed on discharge instructions, follow up and referral plans. medication usage, Demonstrated understanding of instructions, follow-up care, medications, Prescriptions given X 4. 09:37 Patient left the ED. aa5 Signatures: Dispatcher [employer] Judit Gauthier RN RN kl Salyer, Edna es Calderon, Audri, RN RN aa5 Son Julio DO DO ms3 Sophia Jackson RN RN vc1 Justin Shah [facility] Ja Niar MD MD sp4
--- NOTE | 2022-11-22 08:29 | EDPHYS ---
Physician Documentation [facility] Name: Joseph Machado Age: 72 yrs Sex: Male : 1950 Arrival Date: 11/22/2022 Time: 05:03 Bed 6 Private MD: ED Physician Son Julio HPI: 11/22 05:20 This 72 yrs old Male presents to ER via Unassigned with complaints of Flank sp4 Pain. 06:44 72-year-old male with history of hypertension, presents for cute onset of left flank sp4 pain left groin pain left abdominal pain starting acutely when awakening this morning. Patient denied any vomiting denied any bloody urine. Denied any skin rashes. . Historical: - Allergies: 05:30 No Known Allergies; kl - PMHx: 05:30 Hypertensive disorder; kl - PSHx: 05:30 cardiac bypass; kl - Immunization history:: Adult Immunizations not immunized. - Social history:: Smoking status: Patient denies any tobacco usage or history of. - Family history:: not pertinent. ROS: 06:44 Constitutional: Negative for fever, chills, and weight loss, Eyes: Negative for injury, sp4 pain, redness, and discharge, Abdomen/GI: Negative for nausea, vomiting, diarrhea, and constipation, positive for left abdominal pain left flank pain left groin pain : Negative for injury, bleeding, discharge, and swelling, positive for left flank pain left groin pain left testicular pain 06:44 All other systems are negative. Exam: 06:44 Constitutional: This is a well developed, well nourished patient who is awake, alert, sp4 uncomfortable appearing male Head/Face: Normocephalic, atraumatic. Eyes: Pupils equal round and reactive to light, extra-ocular motions intact. Lids and lashes normal. Conjunctiva and sclera are not injected. Cornea within normal limits. Periorbital areas with no swelling, redness, or edema. ENT: Nares patent. No nasal discharge, no septal abnormalities noted. Tympanic membranes are normal and external auditory canals are clear. Oropharynx with no redness, swelling, or masses, exudates, or evidence of obstruction, uvula midline. Mucous membranes moist. Neck: Trachea midline, no thyromegaly or masses palpated, and no cervical lymphadenopathy. Supple, full range of motion without nuchal rigidity, or vertebral point tenderness. Chest/axilla: Normal chest wall appearance and motion. Nontender with no deformity. No lesions are appreciated. Cardiovascular: Regular rate and rhythm with a normal S1 and S2. No gallops, murmurs, or rubs. Normal PMI, no JVD. No pulse deficits. Respiratory: Lungs have equal breath sounds bilaterally, clear to auscultation and percussion. No rales, rhonchi or wheezes noted. No increased work of breathing, no retractions or nasal flaring. Abdomen/GI: Soft, non-tender, with normal bowel sounds. No distension or tympany. No guarding or rebound. No evidence of tenderness throughout. Back: No spinal tenderness. No costovertebral tenderness. Male : Normal genitalia with no discharge or lesions. Normal uncircumcised male, no inguinal hernias, no testicular masses, no sign of testicular torsion Skin: Warm, dry with normal turgor. Normal color with no rashes, no lesions, and no evidence of cellulitis. MS/ Extremity: Pulses equal, no cyanosis. Neurovascular intact. Full, normal range of motion. Neuro: Awake and alert, GCS 15, oriented to person, place, time, and situation. Cranial nerves II-XII grossly intact. Motor strength 5/5 in all extremities. Sensory grossly intact. Psych: Awake, alert, with orientation to person, place and time. Behavior, mood, and affect are within normal limits Vital Signs: 05:29 BP 178 / 64; Pulse 55; Resp 20; Temp 97.9(O); Pulse Ox 98% on R/A; Weight 90.72 kg (R); kl Height 5 ft. 2 in. ; Pain 10/10; 06:54 BP 181 / 67; Pulse 54; Resp 19; Pulse Ox 96% on R/A; vc1 07:47 BP 182 / 92; Pulse 58; Resp 20 S; Temp 98(TE); Pulse Ox 100% on R/A; Pain 10/10; aa5 07:55 Pulse 58; Resp 18 S; Pulse Ox 99% on R/A; aa5 08:46 BP 180 / 62; Pulse 54; Resp 15 S; Temp 98(TE); Pulse Ox 96% on R/A; Pain 6/10; aa5 05:29 Body Mass Index 36.58 (90.72 kg, 157.48 cm) kl 05:29 Pain Scale: Adult kl 07:47 Pain Scale: Adult aa5 08:46 Pain Scale: Adult aa5 MDM: 05:26 Patient medically screened. sp4 06:47 Differential diagnosis: nephrolithiasis, pyelonephritis, UTI, testicular torsion, sp4 diverticulitis, pancreatitis. Data reviewed: vital signs, nurses notes, old medical records, lab test result(s), radiologic studies, CT scan. Consideration of Admission/Observation Escalation of care including admission/observation considered. ED course: Patient at this time waiting for CT abdomen pelvis status lab work. 06:56 Transition of care: After a detail discussion of the patient's case, care is sp4 transferred to Son Julio DO. 07:06 Transition of care: Care assumed from aJ Nair MD. ms3 07:14 ED course: Introduced myself to patient. Patient currently going to CT scan. . ms3 08:43 ED course: Discussed labs and CT with patient and his . PDMP reviewed and patient ms3 given Rx for MSIR 15 mg tab 0.5 tab q 4 hours prn pain. Patient is understand and agree with plan. Patient follow-up Dr. Allen in 2 to 3 days. All questions were answered. Return precautions discussed include worsening symptoms, fevers, chills, nausea, vomiting, or any other concerns.. 08:45 I considered the following discharge prescriptions or medication management in the ms3 emergency department Medications were administered in the Emergency Department. See MAR. Counseling: I had a detailed discussion with the patient and/or guardian regarding: the historical points, exam findings, and any diagnostic results supporting the discharge/admit diagnosis, lab results, radiology results, the need for outpatient follow up, to return to the emergency department if symptoms worsen or persist or if there are any questions or concerns that arise at home. Special discussion: I discussed with the patient/guardian in detail that at this point there is no indication for admission to the hospital. It is understood, however, that if the symptoms persist or worsen the patient needs to return immediately for re-evaluation. 11/22 05:26 Order name: CBC with Diff; Complete Time: 07: sp4 11/22 05:26 Order name: CMP; Complete Time: 07: sp4 11/22 05:26 Order name: Lipase; Complete Time: 07:05 sp4 11/22 05:26 Order name: Urinalysis w/ reflexes; Complete Time: 06:39 sp4 11/22 05:26 Order name: CT Abd/Pelvis - IV Contrast Only; Complete Time: 08:15 sp4 11/22 05:26 Order name: IV Saline Lock; Complete Time: 06:19 sp4 11/22 05:26 Order name: Labs collected and sent; Complete Time: 06:19 sp4 11/22 06:16 Order name: O2 Per Protocol; Complete Time: 06:19 kl 11/22 06:16 Order name: O2 Sat Monitoring; Complete Time: 06:19 kl Administered Medications: 06:05 Drug: NS 0.9% IV 1000 ml Route: IV; Rate: 1 bolus; Site: right antecubital; kl 07:25 Follow up: IV Status: Completed infusion; IV Intake: 1000ml aa5 06:05 Drug: Famotidine IVP 20 mg Route: IVP; Site: right antecubital; kl 06:08 Drug: Ondansetron IVP 4 mg Route: IVP; Site: right antecubital; kl 06:10 Drug: morphine IVP or IV 4 mg Route: IVP; Infused Over: 4 mins; Site: right antecubital;kl 06:17 Drug: TORadol - Ketorolac IVP 15 mg Route: IVP; Site: right antecubital; kl 07:48 Drug: morphine IVP or IV 4 mg Route: IVP; Infused Over: 4 mins; Site: right antecubital;aa5 07:57 Follow up: Response: No adverse reaction aa5 07:57 Drug: Ondansetron IVP 4 mg Route: IVP; Site: right antecubital; aa5 08:20 Follow up: Response: No adverse reaction aa5 Disposition Summary: 11/22/22 08:28 Discharge Ordered Location: Home ms3 Condition: Stable ms3 Diagnosis - Kidney stone L UVJ with moderate hydronephrosis ms3 - Essential (primary) hypertension ms3 Followup: ms3 - With: Patric Allen MD - When: 2 - 3 days - Reason: Recheck today's complaints Discharge Instructions: - Discharge Summary Sheet iw - Kidney Stones, [id number] ms3 Forms: - Medication Reconciliation Form ms3 - Thank You Letter ms3 - Antibiotic Education ms3 - Prescription Opioid Use ms3 - Patient Portal Instructions ms3 Prescriptions: - Flomax 0.4 mg Oral capsule - take 1 capsule by ORAL route every 24 hours; 20 capsule; Refills: 0, Product ms3 Selection Permitted - ibuprofen 400 mg Oral tablet - take 1 tablet by ORAL route every 8 hours as needed for fever or pain; 20 ms3 tablet; Refills: 0, Product Selection Permitted - ondansetron 4 mg Oral Tablet,disintegrating - take 1 tablet by ORAL route every 8 hours for 5 days; 10 tablet; Refills: 0, ms3 Product Selection Permitted Signatures: Dispatcher [employer] EDJudit Bruno RN RN kl Calderon, Audri, RN RN aa5 Son Julio DO DO ms3 Ja Nair MD MD sp4 Corrections: (The following items were deleted from the chart) 06:16 06:16 Cardiac monitoring ordered. [facility] 06:16 06:16 EKG - Nurse/Tech ordered. [facility] 06:23 06:17 BASIC METABOLIC PANEL+C.LAB.BRZ ordered. [facility] EDMS 06:23 06:17 CREATINE PHOSPHOKINASE+C.LAB.BRZ ordered. EDMS EDMS 06:23 06:17 HEPATIC FUNCTION+C.LAB.BRZ ordered. [facility] EDMS 06:23 06:17 MAGNESIUM+C.LAB.BRZ ordered. EDMS EDMS 06:23 06:17 PROBNP+C.LAB.BRZ ordered. [facility] EDMS 06:23 06:17 Troponin High Sensitivity+C.LAB.BRZ ordered. [facility] EDMS 06:24 06:17 BLOOD CULTURE*+BA.LAB.BRZ ordered. EDMS EDMS 06:24 06:17 D-DIMER+COAG.LAB.BRZ ordered. EDMS EDMS 06:24 06:17 PROTIME (+INR)+COAG.LAB.BRZ ordered. EDMS EDMS 06:24 06:17 PTT, ACTIVATED+COAG.LAB.BRZ ordered. EDMS EDMS
[2022-11-22 09:47] VITALS: BP 182/92; TEMP 98
[2022-11-22 09:48] VITALS: O2SAT 99
== END 2022-11-22 09:37 | disposition home or self-care (01) ==
LOC: ER 05:03
DX: N13.2 Hydronephrosis with renal and ureteral calculous obstruction (principal); I10 Essential (primary) hypertension; Z95.1 Presence of aortocoronary bypass graft
CPT/HCPCS: 36415; 74177; 80053; 81001; 83690; 85025; 96361; 96374; 96375; 99284; J2405; J7030; Q9967